=== PATIENT | female | born 1940 | race Caucasian/White ===

== ENCOUNTER 2016-07-12 16:33 | Inpatient (IN) | payer MEDICARE, OTHER ==
[~2016-07-12] VITALS: Ht 165.1 cm; Wt 73.9 kg
[~2016-07-12 16:33] MED LIST: ALLO100T PO; AMLO10TA2 PO; ASPI-110 PO; ATEN50TA PO; ISOS30TA15 PO; MULT1CHW33 PO; PLAV75TA29 PO; PRIN10TA PO
[2016-07-12 16:39] VITALS: BP 210/109; PULSE 90; RESP 20; TEMP 98.9; O2SAT 99
[2016-07-12] MEDS ORDERED: SODIUM CHLORIDE 0.9% FLUSH 5 ML FLUSH IVF PRN ×2 (16:45→18:45)
[2016-07-12] MEDS ORDERED: ONDANSETRON HCL 4 MG/2 ML VIAL IVP ONE (16:45)
[2016-07-12] MEDS ORDERED: MORPHINE SULFATE 4 MG/ML INJ IV PUSH ONE ×2 (16:45→18:00)
--- NOTE | 2016-07-12 17:08 | PD ---
HPI Chief Complaint: Fall Time Seen by Provider: 16:42 Travel History International Travel<30 days: No Contact w/Intl Traveler<30days: No Traveled to known affect area: No History of Present Illness HPI The patient is a 75-year-old female who presents to the emergency department via EMS for right hip pain. The patient states she fell out of bed, at home, landed on her right hip. Patient complains of pain located in the right hip that radiates down the right leg. The patient was unable to ambulate or bear weight on the affected leg after the fall. She denies any history of previous fracture or dislocation to the right hip. The patient's primary physician is Dr. Agee. The patient denies any head injury, neck pain, chest pain, shortness breath, nausea, vomiting, or abdominal pain. She denies any numbness or tingling of the right lower extremity. The patient's appointment clerk is Dr. Beckford. PFSH Past Medical History Hx Anticoagulant Therapy: Yes (plavix) Cardiovascular Problems: Yes (htn on meds, ME with stents) High Cholesterol: Yes COPD: Yes Cerebrovascular Accident: Yes (TIA) Coronary Artery Disease: Yes Diabetes: No Diminished Hearing: No Gout: Yes Hypertension: Yes Neurologic: Yes (Patient states ruptured aneurysm) Respiratory: Yes (copd) Triglycerides - High: Yes Menopausal: Yes Past Surgical History Abdominal Surgery: Yes Section: Yes Hysterectomy: Yes Pacemaker: No Other Surgery: Yes (Carotid endarterectomy ) Social History Alcohol Use: No Tobacco Use: Yes (1 PPD) Substance Use: No Allergies-Medications (Allergen,Severity, Reaction): Coded Allergies: Latex (Verified Allergy, Severe, Rash, 07/12/16) *MDRO Multi-Drug Resistant Organism (Verified Adverse Reaction, Unknown, ) 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) Reported Meds & Prescriptions Reported Meds & Active Scripts Active Reported Atorvastatin (Atorvastatin Calcium) 20 Mg Tab 20 Mg PO HS Garlic 1,000 Mg Cap 1,000 Mg PO DAILY Isosorbide Mononitrate ER (Isosorbide Mononitrate) 30 Mg Viviana 30 Mg PO DAILY Lisinopril 20 Mg Tab 20 Mg PO DAILY Allopurinol 100 Mg Tab 100 Mg PO BID Aspirin 81 (Aspirin) 81 Mg Tabdr 81 Mg PO DAILY Atenolol 50 Mg Tab 50 Mg PO BID Plavix (Clopidogrel Bisulfate) 75 Mg Tab 75 Mg PO DAILY Amlodipine (Amlodipine Besylate) 10 Mg Tab 10 Mg PO DAILY Review of Systems Except as stated in HPI: all other systems reviewed are Neg General / Constitutional: No: Fever HENT: No: Headaches, Neck Pain Cardiovascular: No: Chest Pain or Discomfort Respiratory: No: Shortness of Breath Gastrointestinal: No: Nausea, Vomiting, Abdominal Pain Musculoskeletal: Positive: Limited ROM, Pain Neurologic: No: Headache, Change in Mentation, Paresthesia, Sensory Disturbance Physical Exam Narrative GENERAL: Awake, alert, pleasant 75-year-old female who appears her stated age and is in no acute respiratory distress. SKIN: Warm and dry. HEAD: Atraumatic. Normocephalic. EYES: No injection or drainage. ENT: No nasal bleeding or discharge. Mucous membranes pink and moist. NECK: Trachea midline. No JVD. Nontender to palpation of the cervical vertebrae. CARDIOVASCULAR: Regular rate and rhythm. No murmur appreciated. RESPIRATORY: No accessory muscle use. Clear to auscultation. Breath sounds equal bilaterally. GASTROINTESTINAL: Abdomen soft, non-tender, nondistended. No rebound tenderness. MUSCULOSKELETAL: The right lower extremity is shortened and externally rotated. Positive dorsalis pedal pulse. The patient is able to move the toes of the right foot without difficulty. The patient is able flex the left hip and left knee, but is unable to flex the right hip or knee secondary to pain. NEUROLOGICAL: Awake and alert. No obvious cranial nerve deficits. Motor grossly within normal limits. Normal speech. PSYCHIATRIC: Appropriate mood and affect; insight and judgment normal. Data Data Last Documented VS Vital Signs Date Time Temp Pulse Resp B/P Pulse Ox O2 Delivery O2 Flow Rate FiO2 07/12/16 16:39 98.9 90 20 210/109 99 Orders Electrocardiogram (07/12/16 16:42) Complete Blood Count With Diff (07/12/16 16:42) Comprehensive Metabolic Panel (07/12/16 16:42) Prothrombin Time / Inr (Pt) (07/12/16 16:42) Type And Screen (07/12/16 16:42) Chest, Single Ap (07/12/16 16:42) Hip, Uni(Ap&Lat) W Ap Pelvis (07/12/16 16:42) Iv Access Insert/Monitor (07/12/16 16:42) Oximetry (07/12/16 16:42) Ice/Cold Pack (07/12/16 16:42) [employer] Request For Service (07/12/16 16:42) Ecg Monitoring (07/12/16 16:42) Morphine Inj (Morphine Inj) (07/12/16 16:45) Ondansetron Inj (Zofran Inj) (07/12/16 16:45) Sodium Chloride 0.9% Flush (Ns Flush) (07/12/16 16:45) Sling And Swathe (07/12/16 ) Consult Orthopedic (07/12/16 ) Admit Order (Ed Use Only) (07/12/16 17:48) Allopurinol (Zyloprim) (07/12/16 21:00) Amlodipine (Norvasc) (07/13/16 09:00) Atenolol (Tenormin) (07/12/16 21:00) Atorvastatin (Lipitor) (07/12/16 21:00) Isosorbide Mononitrate (Imdur) (07/13/16 09:00) Lisinopril (Prinivil) (07/13/16 09:00) (Nf) Garlic (07/13/16 09:00) Admit To Inpatient (07/12/16 ) Inpatient Certification (07/12/16 ) Labs Laboratory Tests Test 07/12/16 17:10 White Blood Count 6.4 TH/MM3 Red Blood Count 3.58 MIL/MM3 Hemoglobin 11.5 GM/DL Hematocrit 33.4 % Mean Corpuscular Volume 93.3 FL Mean Corpuscular Hemoglobin 32.0 PG Mean Corpuscular Hemoglobin 34.3 % Concent Red Cell Distribution Width 14.8 % Platelet Count 166 TH/MM3 Mean Platelet Volume 8.6 FL Neutrophils (%) (Auto) 61.8 % Lymphocytes (%) (Auto) 30.5 % Monocytes (%) (Auto) 6.0 % Eosinophils (%) (Auto) 1.2 % Basophils (%) (Auto) 0.5 % Neutrophils # (Auto) 4.0 TH/MM3 Lymphocytes # (Auto) 2.0 TH/MM3 Monocytes # (Auto) 0.4 TH/MM3 Eosinophils # (Auto) 0.1 TH/MM3 Basophils # (Auto) 0.0 TH/MM3 CBC Comment DIFF FINAL Differential Comment Prothrombin Time 10.2 SEC Prothromb Time International 0.9 RATIO Ratio Sodium Level 142 MEQ/L Potassium Level 4.0 MEQ/L Chloride Level 108 MEQ/L Carbon Dioxide Level 25.9 MEQ/L Anion Gap 8 MEQ/L Blood Urea Nitrogen 19 MG/DL Creatinine 0.94 MG/DL Estimat Glomerular Filtration 58 ML/MIN Rate Random Glucose 116 MG/DL Calcium Level 9.3 MG/DL Total Bilirubin 0.5 MG/DL Aspartate Amino Transf 15 U/L (AST/SGOT) Alanine Aminotransferase 16 U/L (ALT/SGPT) Alkaline Phosphatase 93 U/L Total Protein 7.4 GM/DL Albumin 3.6 GM/DL Blood Type O POSITIVE Antibody Screen NEGATIVE MDM Medical Decision Making Medical Screen Exam Complete: Yes Emergency Medical Condition: Yes Medical Record Reviewed: Yes Interpretation(s) Chest x-ray unremarkable Hip x-ray reveals right hip fracture Laboratory Tests Test 07/12/16 17:10 White Blood Count 6.4 TH/MM3 Red Blood Count 3.58 MIL/MM3 Hemoglobin 11.5 GM/DL Hematocrit 33.4 % Mean Corpuscular Volume 93.3 FL Mean Corpuscular Hemoglobin 32.0 PG Mean Corpuscular Hemoglobin 34.3 % Concent Red Cell Distribution Width 14.8 % Platelet Count 166 TH/MM3 Mean Platelet Volume 8.6 FL Neutrophils (%) (Auto) 61.8 % Lymphocytes (%) (Auto) 30.5 % Monocytes (%) (Auto) 6.0 % Eosinophils (%) (Auto) 1.2 % Basophils (%) (Auto) 0.5 % Neutrophils # (Auto) 4.0 TH/MM3 Lymphocytes # (Auto) 2.0 TH/MM3 Monocytes # (Auto) 0.4 TH/MM3 Eosinophils # (Auto) 0.1 TH/MM3 Basophils # (Auto) 0.0 TH/MM3 CBC Comment DIFF FINAL Differential Comment Prothrombin Time 10.2 SEC Prothromb Time International 0.9 RATIO Ratio Sodium Level 142 MEQ/L Potassium Level 4.0 MEQ/L Chloride Level 108 MEQ/L Carbon Dioxide Level 25.9 MEQ/L Anion Gap 8 MEQ/L Blood Urea Nitrogen 19 MG/DL Creatinine 0.94 MG/DL Estimat Glomerular Filtration 58 ML/MIN Rate Random Glucose 116 MG/DL Calcium Level 9.3 MG/DL Total Bilirubin 0.5 MG/DL Aspartate Amino Transf 15 U/L (AST/SGOT) Alanine Aminotransferase 16 U/L (ALT/SGPT) Alkaline Phosphatase 93 U/L Total Protein 7.4 GM/DL Albumin 3.6 GM/DL Blood Type O POSITIVE EKG reveals normal sinus rhythm with a rate 80. No ischemic changes or ectopy noted. Differential Diagnosis Differential diagnosis includes hip fracture, hip dislocation, hip contusion, pelvic rami fracture, pelvic fracture, mechanical fall. Narrative Course IV was established, labs are drawn and sent, and the patient was placed on cardiac telemetry monitoring and continuous pulse oximetry monitoring. EKG was ordered and interpreted. Chest x-ray, pelvis x-ray, and x-ray the right hip were obtained. The patient was administered morphine, Zofran, and IV fluids. X -ray reveals a right hip fracture. Laboratory evaluation is unremarkable. I had a discussion with the on-call orthopedist, Dr. Durán, who requests that the patient's Plavix be held, the patient can eat tonight. I had a discussion with the on-call medical team who agrees with admission. The patient was reevaluated, tolerated the morphine dose without any hallucinations this time, therefore, was redosed for pain control. The patient is comfortable with admission for further evaluation of right hip fracture and definitive management. Physician Communication Physician Communication I discussed the patient with Dr. Patel who agrees with admission. Diagnosis Primary Impression: Closed right hip fracture Qualified Code: S72.001A - Closed right hip fracture, initial encounter Admitting Information Admitting Physician Requests: Admit Condition: Stable Dwaine Sarabia MD Jul 12, 2016 17:08
[2016-07-12] MEDS ORDERED: ISOS30TA3 PO (17:22)
[2016-07-12] MEDS ORDERED: GARL1CAP PO (17:22)
[2016-07-12] MEDS ORDERED: ATOR20TA15 PO (17:22)
[2016-07-12] MEDS ORDERED: LISI-515 PO (17:22)
[2016-07-12 17:24] LABS: BASOPHIL % 0.5 % (0.0-2.0); EOSINOPHIL # 0.1 TH/MM3 (0-0.4); EOSINOPHIL % 1.2 % (0.0-4.0); HEMATOCRIT 33.4 % (35.0-46.0); HEMO FLAGS DIFF FINAL; LYMPH % 30.5 % (9.0-44.0); MEAN CELL VOLUME 93.3 FL (80.0-100.0); MEAN CORPUSCULAR HGB CONC 34.3 % (32.0-36.0); NEUT % 61.8 % (16.0-70.0); PLATELET COUNT 166 TH/MM3 (150-450); RED BLOOD COUNT 3.58 MIL/MM3 (4.00-5.30); RED CELL DISTRIBUTION WIDTH 14.8 % (11.6-17.2); WHITE BLOOD COUNT 6.4 TH/MM3 (4.0-11.0)
[2016-07-12 17:32] LABS: INTERNATIONAL NORMALIZED RATIO 0.9 RATIO; PROTHROMBIN TIME - PATIENT 10.2 SEC (9.8-11.6)
[2016-07-12 17:37] LABS: ALT (GPT) 16 U/L (10-53); ANION GAP 8 MEQ/L (5-15); AST (GOT) 15 U/L (15-37); BICARBONATE 25.9 MEQ/L (21.0-32.0); BLOOD UREA NITROGEN 19 MG/DL (7-18); CHLORIDE 108 MEQ/L (98-107); GLOMERULAR FILTRATION RATE 58 ML/MIN (>89); SODIUM (NA) 142 MEQ/L (136-145)
[2016-07-12 17:39] LABS: ALKALINE PHOSPHATASE 93 U/L (45-117); TOTAL BILIRUBIN ADULT 0.5 MG/DL (0.2-1.0)
[2016-07-12 18:03] VITALS: RESP 17; O2SAT 96
[2016-07-12] MEDS: SODIUM CHLOR 0.9% 1000 ML INJ 1,000 ML IV SCH (18:31)
[2016-07-12] MEDS ORDERED: ENALAPRILAT 1.25 MG/ML VIAL IV PRN (18:45)
[2016-07-12] MEDS ORDERED: diphenhydrAMINE HCL 50 MG/ML VIAL IV PRN (18:45)
[2016-07-12] MEDS ORDERED: ACETAMINOPHEN/HYDROcodone 325 MG/5 MG TAB PO PRN ×2 (18:45)
[2016-07-12] MEDS ORDERED: NALOXONE HCL 0.4 MG/ML AMP IV PRN (18:45)
[2016-07-12] MEDS ORDERED: ONDANSETRON HCL 4 MG/2 ML VIAL IVP PRN (18:45)
[2016-07-12] MEDS ORDERED: cloNIDine HCL 0.1 MG TAB PO PRN ×2 (18:45→21:15)
[2016-07-12] MEDS ORDERED: ACETAMINOPHEN 325 MG TAB PO PRN (18:45)
[2016-07-12] MEDS ORDERED: RESP: ALBUTEROL 2.5 MG/IPRATROPIUM 0.5 MG NEB (PRN) NEB (18:45)
[2016-07-12] MEDS ORDERED: diphenhydrAMINE HCL 25 MG CAP PO PRN (18:45)
--- NOTE | 2016-07-12 18:45 | HHI.HP ---
[facility] Mihai Agee MD Admission Diagnosis right hip fracture Diagnoses: Chief Complaint: Fall Travel History International Travel<30 Days: No Contact w/Intl Traveler <30 Da: No Traveled to Known Affected Are: No History of Present Illness 75-year-old female with a past medical history HTN, COPD, CAD, gout who presented with right hip pain after a fall. The patient states she was sitting on the edge the bed today, when her sat on the bed as well, which made her lose her balance and fall off the bed. She landed on her right hip and noticed immediate pain. She denies any other injury, head trauma, or loss of consciousness. She denies any numbness or tingling. She has pain located in her groin, that is exacerbated by movement. The pain is 0/10 severity as long as she lies still. She denies any chest pain, shortness breath, nausea, vomiting, headache, weakness, dysuria. Orthopedics was consulted from the ED, recommended holding Plavix. Review of Systems Except as stated in HPI: all other systems reviewed are Neg Past Family Social History Past Medical History Hypertension COPD Coronary artery disease History of carotid stenosis status post CEA Gout History of brain aneurysm, per patient, no intervention required at this aneurysm repaired itself Past Surgical History Hysterectomy with subsequent postoperative fistula repair Right carotid endarterectomy Ventral hernia repair 01/29 Cardiac catheterization with stent placement 01/29 Reported Medications Atorvastatin (Atorvastatin Calcium) 20 Mg Tab 20 Mg PO HS Garlic 1,000 Mg Cap 1,000 Mg PO DAILY Isosorbide Mononitrate ER (Isosorbide Mononitrate) 30 Mg Viviana 30 Mg PO DAILY Lisinopril 20 Mg Tab 20 Mg PO DAILY Allopurinol 100 Mg Tab 100 Mg PO BID Aspirin 81 (Aspirin) 81 Mg Tabdr 81 Mg PO DAILY Atenolol 50 Mg Tab 50 Mg PO BID Plavix (Clopidogrel Bisulfate) 75 Mg Tab 75 Mg PO DAILY Amlodipine (Amlodipine Besylate) 10 Mg Tab 10 Mg PO DAILY Allergies: Coded Allergies: Latex (Verified Allergy, Severe, Rash, 07/12/16) *MDRO Multi-Drug Resistant Organism (Verified Adverse Reaction, Unknown, ) 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) Active Ordered Medications Current Medications Medications (Trade) Dose Ordered Sig/Omid Route Start Time Stop Time Status Last Admin (NS Flush) 2 ml UNSCH PRN IVF 07/12/16 16:45 (Zyloprim) 100 mg BID PO 07/12/16 21:00 (Norvasc) 10 mg DAILY PO 07/13/16 09:00 (Tenormin) 50 mg BID PO 07/12/16 21:00 (Lipitor) 20 mg HS PO 07/12/16 21:00 (Imdur) 30 mg DAILY PO 07/13/16 09:00 (Prinivil) 20 mg DAILY PO 07/13/16 09:00 (NS Flush) 2 ml UNSCH PRN IVF 07/12/16 18:45 UNV (NS Flush) 2 ml BID IVF 07/12/16 21:00 UNV (Benadryl Inj) 25 mg Q4H PRN IV 07/12/16 18:45 UNV (Benadryl) 25 mg Q4H PRN PO 07/12/16 18:45 UNV (Narcan Inj) 0.4 mg UNSCH PRN IV 07/12/16 18:45 UNV Family History Patient didn't know her father States her mother at home, unknown causes Social History Continues to smoke, but is cutting back trying to quit Denies any alcohol or drug use Lives at home with her Physical Exam Vital Signs Vital Signs Date Time Temp Pulse Resp B/P Pulse Ox O2 Delivery O2 Flow Rate FiO2 07/12/16 18:03 80 17 95 Room Air 07/12/16 18:03 17 96 Room Air 07/12/16 16:39 98.9 90 20 210/109 99 Physical Exam GENERAL: Well-developed well-nourished. In no acute distress. SKIN: Warm and dry. No lesions noted. HEENT: Normocephalic. Pupils equal and round. Mucous membranes pink and moist. CARDIOVASCULAR: Regular rate and rhythm. No murmur appreciated. RESPIRATORY: No accessory muscle use. Clear to auscultation. Breath sounds equal bilaterally. GASTROINTESTINAL: Abdomen soft, non-tender, nondistended. Bowel sounds x4. MUSCULOSKELETAL: Right lower extremity shortened and externally rotated. No clubbing or cyanosis. Trace lower extremity edema. NEUROLOGICAL: Awake and alert. No focal neurological deficits. Moves upper and lower extremities spontaneously. Normal speech. Lower showing a sensation grossly intact. PSYCHIATRIC: Appropriate mood and affect; insight and judgment normal. Laboratory Laboratory Tests Test 07/12/16 17:10 White Blood Count 6.4 Red Blood Count 3.58 Hemoglobin 11.5 Hematocrit 33.4 Mean Corpuscular Volume 93.3 Mean Corpuscular Hemoglobin 32.0 Mean Corpuscular Hemoglobin 34.3 Concent Red Cell Distribution Width 14.8 Platelet Count 166 Mean Platelet Volume 8.6 Neutrophils (%) (Auto) 61.8 Lymphocytes (%) (Auto) 30.5 Monocytes (%) (Auto) 6.0 Eosinophils (%) (Auto) 1.2 Basophils (%) (Auto) 0.5 Neutrophils # (Auto) 4.0 Lymphocytes # (Auto) 2.0 Monocytes # (Auto) 0.4 Eosinophils # (Auto) 0.1 Basophils # (Auto) 0.0 CBC Comment DIFF FINAL Differential Comment Prothrombin Time 10.2 Prothromb Time International 0.9 Ratio Sodium Level 142 Potassium Level 4.0 Chloride Level 108 Carbon Dioxide Level 25.9 Anion Gap 8 Blood Urea Nitrogen 19 Creatinine 0.94 Estimat Glomerular Filtration 58 Rate Random Glucose 116 Calcium Level 9.3 Total Bilirubin 0.5 Aspartate Amino Transf 15 (AST/SGOT) Alanine Aminotransferase 16 (ALT/SGPT) Alkaline Phosphatase 93 Total Protein 7.4 Albumin 3.6 Blood Type O POSITIVE Antibody Screen NEGATIVE Result Diagram: 07/12/16 1710 07/12/16 1710 Assessment and Plan Assessment and Plan 75-year-old female with a past medical history HTN, COPD, CAD, gout who presented with right hip pain after a fall Right hip fracture Images personally reviewed: Hip x-ray shows femoral head fracture. -Orthopedics consulted, appreciate input into operative and perioperative care -Pain control as needed with oral and intravenous narcotics with a bowel regimen -For now keep patient nothing by mouth after midnight and place on IVF while nothing by mouth Coronary artery disease: Hold aspirin and Plavix for now pending orthopedic evaluation. Continue beta arthur, statin, Imdur. Hypertension: Was accelerated at admission secondary to pain. BP is currently improved, systolic 160s. Continue home amlodipine, atenolol, Imdur, lisinopril. Clonidine and Vasotec as needed. COPD: Chronic, stable. O2 and nebs as needed. DVT prophylaxis: Per orthopedic surgery. SCD. Discussed Condition With Patient, Dr. Patel Attending Statement 75 years old looks good for her age and very sharp S/P mechanical fall lungs clear regular rhythm abdomen soft, nontender walter in place right LE- shorter and externally rotated very good pulses right femoral neck fracture ortho ff. off Plavix now for surgery next few days Hypertension- some levated readings due to pain CAD The exam, history, and the medical decision-making described in the above note were completed with the assistance of the mid-level provider. I reviewed and agree with the findings presented. I attest that I had a [id number] encounter with the patient on the same day, and personally performed and documented my assessment and findings in the medical record. Isidro Jose Jul 12, 2016 18:45 Yanet Patel MD Jul 12, 2016 21:15
[2016-07-12 18:58] VITALS: BP 136/63; PULSE 84; RESP 18; O2SAT 96
[2016-07-12 20:25] VITALS: BP 191/79; PULSE 79; RESP 16; TEMP 96.8; O2SAT 93
[2016-07-12] MEDS: DOCUSATE SODIUM 100 MG CAP PO SCH (20:26)
[2016-07-12] MEDS: ATENOLOL 50 MG TAB PO SCH ×2 (20:27→20:32)
[2016-07-12] MEDS: ATORVASTATIN 20 MG TAB PO SCH (20:28)
[2016-07-12] MEDS: SODIUM CHLORIDE 0.9% FLUSH 5 ML FLUSH IVF SCH (20:28)
[2016-07-12] MEDS: ALLOPURINOL 100 MG TAB PO SCH (20:28)
[2016-07-12 23:00] VITALS: BP 183/79; PULSE 69; RESP 17; TEMP 97.1; O2SAT 95
[2016-07-12] MEDS: MORPHINE SULFATE 8 MG/ML INJ IV PUSH PRN (23:11)
[2016-07-12 23:54] VITALS: BP 154/62; PULSE 66
[2016-07-13] VITALS (7 sets, daily range): BP systolic 122–191; BP diastolic 53–83; PULSE 61–92; RESP 16–18; TEMP 96.8–98.5; O2SAT 92–97
--- NOTE | 2016-07-13 06:35 | PD.ORT.PN ---
Subjective Subjective Remarks Tripping fall while getting out of bed. Immediate pain to right hip and inability to stand. No other complaints Objective Vitals Vital Signs Date Time Temp Pulse Resp B/P Pulse Ox O2 Delivery O2 Flow Rate FiO2 07/13/16 04:00 98.2 92 16 150/74 97 07/12/16 23:54 66 154/62 07/12/16 23:00 97.1 69 17 183/79 95 07/12/16 20:25 96.8 79 16 191/79 93 07/12/16 18:58 84 18 136/63 96 Room Air 07/12/16 18:03 80 17 95 Room Air 07/12/16 18:03 17 96 Room Air 07/12/16 16:39 98.9 90 20 210/109 99 I/O 07/12/16 07/12/16 07/12/16 07/13/16 07/13/16 07/13/16 07:00 15:00 23:00 07:00 15:00 23:00 Intake Total 240 ml Output Total 250 ml Balance -10 ml Intake Oral 240 ml Output Urine Total 250 ml # Bowel Movements 0 Result Diagram: 07/12/16 1710 07/12/16 1710 Other Results Laboratory Tests Test 07/12/16 17:10 Prothrombin Time 10.2 SEC (9.8-11.6) Prothromb Time International 0.9 RATIO Ratio Objective Remarks Bilateral upper extremities: Full range of motion and neurovascularly intact Left lower extremity: Full range of motion and neurovascularly intact Right lower extremity: Pain to palpation of hip and movement. She has no pain with knee or ankle range of motion. Distally she is neurovascularly intact Assessment & Plan Assessment and Plan Right femoral neck fracture Nothing by mouth Due to femoral neck fracture surgical intervention is necessary for right hip hemiarthroplasty Sign consents We'll plan on surgery today. We are aware of Plavix LAMBERTO EDMONDS PA-C Jul 13, 2016 06:35
[2016-07-13 07:11] LABS: AUTOMATED NEUTROPHIL # 3.7 TH/MM3 (1.8-7.7); BASOPHIL % 0.5 % (0.0-2.0); EOSINOPHIL # 0.2 TH/MM3 (0-0.4); EOSINOPHIL % 2.5 % (0.0-4.0); HEMATOCRIT 32.6 % (35.0-46.0); HEMO FLAGS DIFF FINAL; LYMPHOCYTE # 1.8 TH/MM3 (1.0-4.8); MEAN CELL VOLUME 94.3 FL (80.0-100.0); MEAN CORPUSCULAR HEMOGLOBIN 31.4 PG (27.0-34.0); MEAN CORPUSCULAR HGB CONC 33.3 % (32.0-36.0); PLATELET COUNT 165 TH/MM3 (150-450); RED BLOOD COUNT 3.45 MIL/MM3 (4.00-5.30); RED CELL DISTRIBUTION WIDTH 14.8 % (11.6-17.2); WHITE BLOOD COUNT 6.1 TH/MM3 (4.0-11.0)
[2016-07-13 07:38] LABS: BICARBONATE 28.1 MEQ/L (21.0-32.0); POTASSIUM 4.2 MEQ/L (3.5-5.1)
[2016-07-13] MEDS: LISINOPRIL 20 MG TAB PO SCH (09:00)
[2016-07-13] MEDS ORDERED: GARLIC 1000 MG PO SCH (09:00)
[2016-07-13] MEDS: DOCUSATE SODIUM 100 MG CAP PO SCH ×2 (09:00→21:55)
[2016-07-13] MEDS: ISOSORBIDE MONONITRATE 30 MG TAB PO SCH (09:00)
[2016-07-13] MEDS: ALLOPURINOL 100 MG TAB PO SCH ×2 (09:00→21:55)
--- NOTE | 2016-07-13 09:01 | RADRPT ---
EXAM DATE/TIME: 07/12/2016 17:20 [facility] COMPARISON: CHEST SINGLE AP, January 27, 2016, 5:23. INDICATIONS: Trauma MEDICAL HISTORY: Hypertension. Chronic obstructive pulmonary disease. SURGICAL HISTORY: None. ENCOUNTER: Initial ACUITY: 1 day PAIN SCORE: 0/10 LOCATION: Bilateral chest FINDINGS: Single view of the chest demonstrates there is mild diffuse pulmonary interstitial prominence. Heart and mediastinum are unremarkable. There is arthritic change of the left humeral head, maybe even an old fracture. No acute infiltrate or mass identified. CONCLUSION: Mild interstitial prominence. No acute infiltrate or mass. Zenon Camacho MD on July 12, 2016 at 17:45 Board Certified Radiologist. This report was verified electronically.
--- NOTE | 2016-07-13 09:32 | RADRPT ---
EXAM DATE/TIME: 07/12/2016 17:15 [facility] COMPARISON: No previous studies available for comparison. INDICATIONS : Right hip pain, fell MEDICAL HISTORY: Hypertension. Chronic obstructive pulmonary disease. SURGICAL HISTORY: None. ENCOUNTER: Initial ACUITY: 1 day PAIN SCORE: 8/10 LOCATION: Right hip FINDINGS: Two view right hip demonstrates there is a impacted fracture of the right femoral neck. There is robby e foreshortening. I do not see an underlying lesion. Bony pelvis is unremarkable. Left hip is unre markable. CONCLUSION: Impacted fracture of the right femoral neck. Zenon Camacho MD on July 12, 2016 at 17:31 Board Certified Radiologist. This report was verified electronically.
[2016-07-13] MEDS: SODIUM CHLORIDE 0.9% FLUSH 5 ML FLUSH IVF SCH ×2 (09:34→21:55)
[2016-07-13] MEDS: SODIUM CHLOR 0.9% 1000 ML INJ 1,000 ML IV SCH ×2 (09:35→19:31)
[2016-07-13] MEDS: ATENOLOL 50 MG TAB PO SCH ×2 (09:35→21:55)
[2016-07-13] MEDS: MORPHINE SULFATE 8 MG/ML INJ IV PUSH PRN (09:37)
[2016-07-13] MEDS ORDERED: INSULIN HUMAN REGULAR 1,000 UNITS/10 ML VIAL SQ PRN (10:45)
[2016-07-13] MEDS: LACTATED RINGER'S 1000 ML IV SCH (10:45)
[2016-07-13] MEDS ORDERED: METOPROLOL TARTRATE 25 MG TAB PO PRN (10:45)
[2016-07-13] MEDS: SODIUM CHLORID 0.9% 500 ML IV SCH (10:45)
[2016-07-13] MEDS ORDERED: ePHEDrine/NS 25 MG/5 ML SYR IV ONE (12:00)
--- NOTE | 2016-07-13 12:13 | HHI.PR ---
Subjective Remarks pain- relieved with meds looking forward to surgery this 2 pm Objective Vitals Vital Signs Date Time Temp Pulse Resp B/P Pulse Ox O2 Delivery O2 Flow Rate FiO2 07/13/16 09:46 16 07/13/16 08:00 98.5 64 18 161/63 93 07/13/16 04:00 98.2 92 16 150/74 97 07/12/16 23:54 66 154/62 07/12/16 23:00 97.1 69 17 183/79 95 07/12/16 20:25 96.8 79 16 191/79 93 07/12/16 18:58 84 18 136/63 96 Room Air 07/12/16 18:03 80 17 95 Room Air 07/12/16 18:03 17 96 Room Air 07/12/16 16:39 98.9 90 20 210/109 99 I/O 07/12/16 07/12/16 07/12/16 07/13/16 07/13/16 07/13/16 07:00 15:00 23:00 07:00 15:00 23:00 Intake Total 240 ml 677 ml Output Total 250 ml 250 ml Balance -10 ml 427 ml Intake Oral 240 ml 0 ml IV Total 677 ml Output Urine Total 250 ml 250 ml # Bowel Movements 0 0 Result Diagram: 07/13/16 0607 07/13/16 0607 Imaging Last Impressions Hip and Pelvis X-Ray 07/12/161641 Signed Impressions: Service Date/Time: Tuesday, July 12, 2016 17:15 - CONCLUSION: Impacted fracture of the right femoral neck. Zenon Camacho MD Chest X-Ray 07/12/161641 Signed Impressions: Service Date/Time: Tuesday, July 12, 2016 17:20 - CONCLUSION: Mild interstitial prominence. No acute infiltrate or mass. Zenon Camacho MD Objective Remarks awake and alert, oriented x 2, NAD lungs clear regular rhtyhm abdomen soft, right LE- shorter- externally rotated, good pulses A/P Assessment and Plan 75 years old male S/P fall Right femoral neck fracture- going for surgery this pm. Hypertension, Hstory of CAD. continue meds Yanet Patel MD Jul 13, 2016 12:13
[2016-07-13] MEDS ORDERED: GENTAMICIN SULFATE 80 MG/2 ML VIAL ONE (12:21)
[2016-07-13] MEDS ORDERED: ceFAZolin INJ 1,000 MG VIAL ONE (12:21)
[2016-07-13] MEDS ORDERED: VANCOMYCIN HCL 1000 MG VIAL ONE ×2 (12:21→12:57)
[2016-07-13] MEDS ORDERED: SODIUM CHLOR 0.9% 250 ML INJ 250 ML ONE (12:24)
[2016-07-13] MEDS ORDERED: FAMOTIDINE 20 MG/2 ML VIAL ONE (12:46)
[2016-07-13] MEDS ORDERED: DEXAMETHASONE SOD PHOS 4 MG/ML VIAL ONE (12:46)
[2016-07-13] MEDS ORDERED: ACETAMINOPHEN 1000 MG/100 ML VIAL IV ONE (12:46)
[2016-07-13] MEDS: TRANEXAMIC ACID INJ 1,050 MG in SODIUM CHLORIDE 0.9% INJ 100 ML IV SCH ×2 (13:00→13:41)
[2016-07-13] MEDS ORDERED: PROPOFOL 200 MG/20 ML AMP IV ONE (14:09)
[2016-07-13] MEDS ORDERED: PHENYLEPH/NS 1000 MCG/10 ML SYR IV ONE (14:09)
[2016-07-13] MEDS ORDERED: ONDANSETRON HCL 4 MG/2 ML VIAL IV PUSH ONE (14:09)
[2016-07-13] MEDS ORDERED: NEOSTIGMINE 3 MG/3 ML SYR IV ONE (14:09)
[2016-07-13] MEDS ORDERED: LACTATED RINGER'S 1000 ML INJ 1,000 ML IV ONE (14:09)
[2016-07-13] MEDS ORDERED: Post-op Orders (for Pharmacy) MISC XX ONE (14:30)
[2016-07-13] MEDS ORDERED: SODIUM CHLORIDE 0.9% FLUSH 5 ML FLUSH IVF PRN (14:30)
[2016-07-13] MEDS ORDERED: MORPHINE SULFATE 4 MG/ML INJ IV PUSH PRN (14:30)
[2016-07-13] MEDS ORDERED: ACETAMINOPHEN/HYDROcodone 325 MG/7.5 MG TAB PO PRN (14:30)
--- NOTE | 2016-07-13 14:30 | PD.OP ---
cc: Allan Hernández MD Operative Report Date of Surgery: Jul 13, 2016 Preoperative Diagnosis: Displaced right femoral neck fracture Postoperative Diagnosis: Same Procedure: Right hip simon-arthroplasty Anesthesia: Gen. Surgeon: Allan Hernández Grain Operator(s): Jose Hunt PA-C The surgical procedure was assisted by my physician exceptional children teacher assistant. My P.A. presence was necessary throughout this case for the manipulation and positioning of the surgical extremity. My P.A. was assisting me throughout the duration of this procedure. The skill set of a physician exceptional children teacher assistant was medically necessary to complete this procedure. During the surgical case the electrical/instrument technician was working at the back table and the physician exceptional children teacher assistant was directly assisting me. Operation and Findings: PLAN OF ACTIVITY Weight bear as tolerated. IMPLANTS USED DePuy Corail size [10] stem with size [42] bipolar head and [was 5] neck. DRAIN: 7 mm Keagan-Moreno drain DETAILS OF PROCEDURE This patient was brought into the operating room and placed on the OR table. The patient was given anesthesia. The patient received IV antibiotics. The patient was then placed in lateral decubitus position. The hip and leg were prepped with alcohol, followed by Hibiclens and draped in a usual sterile fashion. Clean air was used for this procedure. Time out procedure was performed. The procedure began with a 5 inch incision over the posterolateral hip. The subcutaneous tissue was dissected with the Bovie. The iliotibial band were split in line with fibers. The Charnley retractor was placed. The piriformis and external rotators were released from the femur and tagged with a #1 Vicryl suture. The capsule is now incised and tagged with #1 Vicryl. The femoral neck fracture was now visualized. A corkscrew was now used to remove the femoral head. The femoral head was sized and measured. Soft tissue was now protected. The hip skid was placed underneath the femoral neck. An oscillating saw was used to make a femoral neck cut. At this point attention was turned to preparation of the proximal femur. A box osteotome was used to remove the lateral cortex of the femoral neck. The T- handle reamer was used to open the femoral canal. Next, the canal was broached. A lateralizing reamer was used to help lateralize the prosthesis. At this point a trial head and neck were placed. The hip was reduced. The patient was found to have excellent stability with good range of motion. Trial components were removed. Soft tissue and bone were thoroughly irrigated. A Corail stem was now opened. The stem was now impacted into the proximal femur. Care was taken to keep appropriate anteversion. The head and neck were now impacted onto the stem. The hip was again reduced. The hip was found to have good range of motion and good stability. Leg lengths were clinically equal. The wound was thoroughly irrigated. The capsule, piriformis and iliotibial band were closed with #1 Vicryl. Subcutaneous tissue was closed with 3-0 Vicryl. The skin was closed with tavon. A sterile dressing was applied with Primapore. The patient was placed into a knee immobilizer. The patient was awakened and transferred to the recovery room in stable condition. Needle and sponge counts were correct. Allan Hernández MD Jul 13, 2016 14:30
[2016-07-13] MEDS ORDERED: MIDAZOLAM HCL 2 MG/2 ML VIAL ONE (15:05)
[2016-07-13] MEDS ORDERED: *RESP: ALBUTEROL 2.5 MG/3 ML NEB (PRN) PERIprocedural Use ONLY NEB ONE (15:06)
[2016-07-13] MEDS ORDERED: fentaNYL CITRATE 250 MCG/5 ML AMP ONE (15:06)
[2016-07-13] MEDS ORDERED: ERGOCALCIFEROL (VIT D2) 50,000 UNIT CAP PO ONE (15:15)
[2016-07-13] MEDS ORDERED: *ENALAPRILAT 1.25 MG/ML VIAL PERIprocedural Use ONLY ONE (15:15)
[2016-07-13] MEDS ORDERED: *MEPERIDINE 25 MG INJ VIAL PERIprocedural Use ONLY ONE (15:19)
[2016-07-13] MEDS ORDERED: DO NOT ADM ANY ANTICOAGULANT DRUGS XX PRN (15:30)
[2016-07-13] MEDS ORDERED: *morphine SULFATE 8 MG/ML PERIprocedure ONLY ONE (16:01)
--- NOTE | 2016-07-13 16:16 | RADRPT ---
EXAM DATE/TIME: 07/13/2016 15:41 [facility] COMPARISON: CHEST SINGLE AP, July 12, 2016, 17:20. INDICATIONS : Post op right hip surgery. MEDICAL HISTORY : None. SURGICAL HISTORY : None. ENCOUNTER: Initial ACUITY: 1 day PAIN SCORE: 7/10 LOCATION: Right hip and pelvis FINDINGS: The patient is post right hip arthroplasty. Orthopedic hardware is in excellent position. The alignme nt is good. There are skin tavon in place. Note is made of degenerative changes within the left as well. CONCLUSION: 1. Good Alignment of the patient's right hip arthroplasty. Neeraj Barnett MD Board Certified Radiologist. This report was verified electronically.
[2016-07-13] MEDS: ceFAZolin 2 GM PREMIX 50 ML IV SCH (18:04)
--- NOTE | 2016-07-13 18:07 | MB ---
cc: ESTELA PATEL TODD DATE OF CONSULTATION: 07/13/2016 REASON FOR CONSULTATION: Right femoral neck fracture. CONSULTING PHYSICIAN Dr. Patel. HISTORY Jud is a 75 year-old female who has a history of hypertension, COPD, coronary artery disease, and gout. She had a fall. She was sitting on the edge of the bed when she fell. She landed on her right side. She had immediate right hip pain. She was unable to stand or ambulate. She presented to the emergency room where x-rays revealed a right hip femoral neck fracture. She is currently awake and alert on the orthopedic floor. Her only complaint is her right hip. Pain is worse with movement. She denies any dizziness, syncope, loss of consciousness. PAST MEDICAL HISTORY: Illnesses: 1. Hypertension. 2. COPD. 3. Coronary artery disease. 4. Carotid stenosis. 5. Gout. PAST SURGICAL HISTORY: 1. Hysterectomy. 2. Carotid endarterectomy. 3. Hernia repair. 4. Cardiac catheterization. MEDICATIONS 1. Atorvastatin. 2. Isosorbide mononitrate. 3. Lisinopril. 4. Allopurinol. 5. Aspirin. 6. Atenolol. 7. Plavix. 8. Amlodipine. ALLERGIES Latex SOCIAL HISTORY The patient does smoke. She denies alcohol or drug use. She lives with her . FAMILY HISTORY: Noncontributory. Mother of natural causes at old age. REVIEW OF SYSTEMS The patient denies headache, visual changes, neck pain, chest pain, shortness of breath, abdominal pain, nausea, vomiting, recent weight loss, numbness or tingling of the extremities. She complains of right hip pain. The pain is worse with movement. PHYSICAL EXAMINATION The patient is a well-developed, well-nourished 75-year-old female who is awake and alert. She is alert and oriented x3. Vital signs: Temperature 98.2, pulse 92, respirations 16, blood pressure 150/74, O2 sat 97% room air. Head: The patient is normocephalic. Pupils are equal. Neck: Soft, nontender. Trachea is midline. Abdomen: Soft, nontender, nondistended. Extremities: Examination of right and left upper extremities reveals no pain with shoulder, elbow or wrist motion. Radial pulses are palpable. Sensation is intact in both fingers. Machine Inker strength is +5 bilaterally. Examination of the left leg reveals no pain with hip, knee or ankle motion. Skin is intact. Dorsalis pedis pulses palpable. Sensation is intact. Examination of the right leg reveals pain with any hip motion. Her right leg is shortened. She has no tenderness over her knee, tibia or ankle. Skin is intact. Dorsalis pedis pulses are intact. Sensation is intact in the right foot. X-RAYS: X-rays of the right hip were reviewed. X-rays revealed a displaced right femoral neck fracture. IMPRESSION: Displaced right femoral neck fracture. PLAN: Treatment options were discussed with the patient. At this point I recommend right hip hemiarthroplasty. The risks of surgery include bleeding, infection, injury to arteries, nerves and blood vessels, hip dislocation, leg length discrepancy, femur fracture, as well as medical complications including blood clot, stroke, heart attack and . All questions were answered. I will plan on surgery today. A mid-level provider in my office (nurse practitioner or physician veterinary assistant) may see this patient on follow-up visits and continue to implement the objectives of this plan including: Starting or adjusting medications, injections , cast application, orthotics, brace application, physical therapy, radiological studies (including x-ray, MRI, CT, ultrasound, bone scan), vascular studies, neurologic studies, specialist consultation, and proceeding with surgical management, as appropriate. MD JOSE Cotto/FABY /5:35 PM /5:59 PM MARCUS
[2016-07-13] MEDS: ATORVASTATIN 20 MG TAB PO SCH (21:55)
[2016-07-14] VITALS (7 sets, daily range): BP systolic 120–168; BP diastolic 47–75; PULSE 63–104; RESP 16–20; TEMP 95.8–98.8; O2SAT 92–96
[2016-07-14] MEDS: ceFAZolin 2 GM PREMIX 50 ML IV SCH ×2 (00:28→06:00)
[2016-07-14] MEDS: SODIUM CHLORID 0.9% 500 ML IV SCH (03:25)
[2016-07-14 06:02] LABS: REVIEW FLAG FINAL
--- NOTE | 2016-07-14 06:41 | PD.ORT.PN ---
Subjective Subjective Remarks POD 1 s/p right hip bipolar hemiarthroplasty doing well. pain controlled. reports some pain but resting comfortably Objective Vitals Vital Signs Date Time Temp Pulse Resp B/P Pulse Ox O2 Delivery O2 Flow Rate FiO2 07/14/16 04:20 98.3 65 20 129/75 92 07/14/16 00:19 96.9 63 20 130/47 94 07/13/16 21:15 97.6 61 18 147/69 95 07/13/16 19:00 96.8 68 18 155/83 92 07/13/16 18:25 92 Nasal Cannula 2.00 07/13/16 17:00 97.6 63 18 122/53 92 07/13/16 16:00 66 13 140/70 94 Nasal Cannula 4 07/13/16 15:45 61 13 140/63 94 Nasal Cannula 4 07/13/16 15:30 62 12 146/60 100 Partial Non-Rebreather 50 07/13/16 15:15 73 16 185/64 96 Non-Rebreather 100 07/13/16 15:00 68 14 182/70 96 Non-Rebreather 100 07/13/16 14:54 97.4 76 12 187/53 92 Nasal Cannula 4 07/13/16 12:00 97.2 88 16 191/71 92 07/13/16 09:46 16 07/13/16 08:00 98.5 64 18 161/63 93 I/O 07/13/16 07/13/16 07/13/16 07/14/16 07/14/16 07/14/16 07:00 15:00 23:00 07:00 15:00 23:00 Intake Total 677 ml 1000 ml 480 ml Output Total 250 ml 500 ml 430 ml Balance 427 ml 500 ml 50 ml Intake Oral 0 ml 480 ml IV Total 677 ml Other 1000 ml Output Urine Total 250 ml 300 ml 400 ml Drainage Total 30 ml Other 200 ml # Bowel Movements 0 0 Result Diagram: 07/14/16 0506 07/13/16 0607 Imaging Last 24 hours Impressions Hip and Pelvis X-Ray 07/13/16 1427 Signed Impressions: Service Date/Time: Wednesday, July 13, 2016 15:41 - CONCLUSION: 1. Good Alignment of the patient's right hip arthroplasty. Neeraj Barnett MD Objective Remarks RLE: dressing clean and dry.intact. +drain. +CKS. NVI Assessment & Plan Assessment and Plan 1) Right femoral neck fracture s/p hemiarthroplasty - POD 1 -WBAT -posterior hip precautions -CKs while in bed -CM for rehab planning -DVT prophylaxis -f/u with [facility] or [facility] in 2 weeks Jose Hunt Jul 14, 2016 06:41
[2016-07-14] MEDS ORDERED: XARE10TA PO (06:43)
[2016-07-14] MEDS ORDERED: WALKER/ADULT/FO1 MIS (06:43)
[2016-07-14] MEDS ORDERED: ERGO1CAP30 PO (06:43)
[2016-07-14] MEDS ORDERED: VITA2000 PO (06:43)
[2016-07-14] MEDS ORDERED: HYDR-3288 PO (06:43)
[2016-07-14] MEDS ORDERED: CALCTAB19 PO (06:43)
--- NOTE | 2016-07-14 08:55 | HHI.PR ---
Subjective Remarks complains of pain post op site- feels brace too tight voiding spontaneously Objective Vitals Vital Signs Date Time Temp Pulse Resp B/P Pulse Ox O2 Delivery O2 Flow Rate FiO2 07/14/16 04:20 98.3 65 20 129/75 92 07/14/16 00:19 96.9 63 20 130/47 94 07/13/16 21:15 97.6 61 18 147/69 95 07/13/16 19:00 96.8 68 18 155/83 92 07/13/16 18:25 92 Nasal Cannula 2.00 07/13/16 17:00 97.6 63 18 122/53 92 07/13/16 16:00 66 13 140/70 94 Nasal Cannula 4 07/13/16 15:45 61 13 140/63 94 Nasal Cannula 4 07/13/16 15:30 62 12 146/60 100 Partial Non-Rebreather 50 07/13/16 15:15 73 16 185/64 96 Non-Rebreather 100 07/13/16 15:00 68 14 182/70 96 Non-Rebreather 100 07/13/16 14:54 97.4 76 12 187/53 92 Nasal Cannula 4 07/13/16 12:00 97.2 88 16 191/71 92 07/13/16 09:46 16 I/O 07/13/16 07/13/16 07/13/16 07/14/16 07/14/16 07/14/16 07:00 15:00 23:00 07:00 15:00 23:00 Intake Total 677 ml 1000 ml 480 ml 240 ml Output Total 250 ml 500 ml 430 ml 250 ml Balance 427 ml 500 ml 50 ml -10 ml Intake Oral 0 ml 480 ml 240 ml IV Total 677 ml Other 1000 ml Output Urine Total 250 ml 300 ml 400 ml 250 ml Drainage Total 30 ml Other 200 ml # Bowel Movements 0 0 0 Result Diagram: 07/14/16 0506 07/13/16 0607 Imaging Last Impressions Hip and Pelvis X-Ray 07/13/16 1427 Signed Impressions: Service Date/Time: Wednesday, July 13, 2016 15:41 - CONCLUSION: 1. Good Alignment of the patient's right hip arthroplasty. Neeraj Barnett MD Chest X-Ray 07/12/16 1642 Signed Impressions: Service Date/Time: Tuesday, July 12, 2016 17:20 - CONCLUSION: Mild interstitial prominence. No acute infiltrate or mass. Zenon Camacho MD Objective Remarks awake and alert, oriented x 2, NAD lungs clear regular rhythm abdomen soft, good bowel sounds RLE- CKS in place, moves toes, warm, good DP++ Procedures 07/13- right total hemiarthroplasty A/P Assessment and Plan 75 years old male S/P fall s/ right hemiarthroplasty 07/13 for Right femoral neck fracture- 07/13 orthopedics, PT ff prn pain meds Hypertension, History of CAD. continue meds- BB and CCB Lovenox for DVT prophylaxis CM=- DC planning - SNF Yanet Patel MD Jul 14, 2016 08:55
[2016-07-14] MEDS: ACETAMINOPHEN/HYDROcodone 325 MG/7.5 MG TAB PO PRN ×2 (09:11→15:40)
[2016-07-14] MEDS: ATENOLOL 50 MG TAB PO SCH ×2 (09:11→20:36)
[2016-07-14] MEDS: ALLOPURINOL 100 MG TAB PO SCH ×2 (09:11→20:36)
[2016-07-14] MEDS: CHOLECALCIFEROL (VIT D3) 5000 UNIT CAP PO SCH (09:11)
[2016-07-14] MEDS: LISINOPRIL 20 MG TAB PO SCH (09:11)
[2016-07-14] MEDS: ISOSORBIDE MONONITRATE 30 MG TAB PO SCH (09:11)
[2016-07-14] MEDS: DOCUSATE SODIUM 100 MG CAP PO SCH ×2 (09:12→20:35)
[2016-07-14] MEDS: SODIUM CHLORIDE 0.9% FLUSH 5 ML FLUSH IVF SCH ×2 (09:13→20:35)
[2016-07-14] MEDS: LACTATED RINGER'S 1000 ML IV SCH (09:13)
[2016-07-14] MEDS: SODIUM CHLOR 0.9% 1000 ML INJ 1,000 ML IV SCH ×2 (09:13→23:09)
--- NOTE | 2016-07-14 11:50 | EKG ---
Date Performed: 07/12/2016 Time Performed: 18:13:05 PTAGE: 75 years EKG: Sinus rhythm NORMAL ECG PREVIOUS TRACING : 07/12/2016 18.12 DOCTOR: Zenon Randall Interpretating Date/Time 07/20/2016 07:12:49
[2016-07-14] MEDS: MAGNESIUM HYDROXIDE SUSP 30 ML CUP PO PRN (13:27)
[2016-07-14] MEDS ORDERED: ENOXAPARIN SODIUM 30 MG/0.3 ML SYRINGE SQ SCH (14:00)
[2016-07-14] MEDS: ATORVASTATIN 20 MG TAB PO SCH (20:35)
[2016-07-15 00:18] VITALS: BP 146/62; PULSE 74; RESP 18; TEMP 98.1; O2SAT 95
[2016-07-15] MEDS: ACETAMINOPHEN/HYDROcodone 325 MG/7.5 MG TAB PO PRN (05:40)
[2016-07-15] MEDS: MAGNESIUM HYDROXIDE SUSP 30 ML CUP PO PRN (05:53)
--- NOTE | 2016-07-15 06:39 | PD.ORT.PN ---
Subjective Subjective Remarks POD 2 s/p right hip bipolar hemiarthroplasty doing well. pain controlled. reports some pain but resting comfortably Objective Vitals Vital Signs Date Time Temp Pulse Resp B/P Pulse Ox O2 Delivery O2 Flow Rate FiO2 07/15/16 00:18 98.1 74 18 146/62 95 07/14/16 19:00 97.0 71 18 140/58 95 07/14/16 16:40 16 07/14/16 15:20 95.8 68 18 149/70 92 07/14/16 12:32 96.8 66 16 120/49 92 07/14/16 11:21 95 Nasal Cannula 3.00 07/14/16 07:26 98.8 104 18 168/75 96 I/O 07/14/16 07/14/16 07/14/16 07/15/16 07/15/16 07/15/16 07:00 15:00 23:00 07:00 15:00 23:00 Intake Total 240 ml 600 ml 240 ml 360 ml Output Total 250 ml 125 ml 15 ml Balance -10 ml 475 ml 225 ml 360 ml Intake Oral 240 ml 600 ml 240 ml 360 ml Output Urine Total 250 ml 125 ml Drainage Total 15 ml # Voids 1 6 # Bowel Movements 0 0 0 Result Diagram: 07/14/16 0506 07/13/16 0607 Imaging Last 24 hours Impressions Hip and Pelvis X-Ray 07/13/16 1427 Signed Impressions: Service Date/Time: Wednesday, July 13, 2016 15:41 - CONCLUSION: 1. Good Alignment of the patient's right hip arthroplasty. Neeraj Barnett MD Objective Remarks RLE: dressing clean and dry.intact. +drain. +CKS. NVI Assessment & Plan Assessment and Plan 1) Right femoral neck fracture s/p hemiarthroplasty - POD 2 -WBAT -posterior hip precautions -CKs while in bed -CM for rehab planning -DVT prophylaxis -ortho cleared for DC to rehab -f/u with [facility] or [facility] in 2 weeks Jose Hunt Jul 15, 2016 06:39
--- NOTE | 2016-07-15 07:58 | HHI.PR ---
Subjective Remarks not much pain voiding well but had had no BM yet no nausea or vomiting Objective Vitals Vital Signs Date Time Temp Pulse Resp B/P Pulse Ox O2 Delivery O2 Flow Rate FiO2 07/15/16 00:18 98.1 74 18 146/62 95 07/14/16 19:00 97.0 71 18 140/58 95 07/14/16 16:40 16 07/14/16 15:20 95.8 68 18 149/70 92 07/14/16 12:32 96.8 66 16 120/49 92 07/14/16 11:21 95 Nasal Cannula 3.00 I/O 07/14/16 07/14/16 07/14/16 07/15/16 07/15/16 07/15/16 07:00 15:00 23:00 07:00 15:00 23:00 Intake Total 240 ml 600 ml 240 ml 360 ml Output Total 250 ml 125 ml 15 ml Balance -10 ml 475 ml 225 ml 360 ml Intake Oral 240 ml 600 ml 240 ml 360 ml Output Urine Total 250 ml 125 ml Drainage Total 15 ml # Voids 1 6 # Bowel Movements 0 0 0 Result Diagram: 07/14/16 0506 07/13/16 0607 Imaging Last Impressions Hip and Pelvis X-Ray 07/13/16 1427 Signed Impressions: Service Date/Time: Wednesday, July 13, 2016 15:41 - CONCLUSION: 1. Good Alignment of the patient's right hip arthroplasty. Neeraj Barnett MD Chest X-Ray 07/12/16 1642 Signed Impressions: Service Date/Time: Tuesday, July 12, 2016 17:20 - CONCLUSION: Mild interstitial prominence. No acute infiltrate or mass. Zenon Camacho MD Objective Remarks awake and alert, oriented x 2, NAD lungs clear regular rhythm abdomen soft, good bowel sounds, nontender RLE- CKS in place, moves toes, warm, good DP++ Procedures 07/13- right total hemiarthroplasty A/P Assessment and Plan 75 years old male S/P fall s/ right hemiarthroplasty 07/13 for Right femoral neck fracture- 07/13 orthopedics, PT ff. WBAT prn pain meds Hypertension, History of CAD.PCI/SHANNON 01/23/2016 continue meds- BB and CCB will d/w regarding Plavix- s/w Dr. Pandey- continue on Plavix for now - ideally 6 months at least. will monitor for bleeding. Lovenox for DVT prophylaxis- while here Xarelto as OP CM=- DC planning - SNF today if arranged- [facility] per CM if accepted- [facility]- we will continue to ff her there Yanet Patel MD Jul 15, 2016 07:58
[2016-07-15] MEDS ORDERED: DOCUSATE SODIUM 50 MG/SENNA 8.6 MG TAB PO ONE (08:00)
[2016-07-15] MEDS ORDERED: LACTULOSE SYRUP 20 GM/30 ML CUP PO ONE (08:00)
[2016-07-15] MEDS ORDERED: CHOL5000 PO (08:05)
[2016-07-15] MEDS ORDERED: DOCU1CAP39 PO (08:05)
[2016-07-15 08:16] VITALS: BP 160/74; PULSE 69; RESP 16; TEMP 97.8; O2SAT 93
[2016-07-15] MEDS: LISINOPRIL 20 MG TAB PO SCH (08:16)
[2016-07-15] MEDS: ATENOLOL 50 MG TAB PO SCH (08:16)
[2016-07-15] MEDS: CHOLECALCIFEROL (VIT D3) 5000 UNIT CAP PO SCH (08:16)
[2016-07-15] MEDS: ISOSORBIDE MONONITRATE 30 MG TAB PO SCH (08:16)
[2016-07-15] MEDS: DOCUSATE SODIUM 100 MG CAP PO SCH (08:16)
[2016-07-15] MEDS: ALLOPURINOL 100 MG TAB PO SCH (08:16)
[2016-07-15] MEDS: SODIUM CHLORIDE 0.9% FLUSH 5 ML FLUSH IVF SCH (08:17)
[2016-07-15] MEDS: SODIUM CHLOR 0.9% 1000 ML INJ 1,000 ML IV SCH (08:23)
[2016-07-15 09:02] VITALS: O2SAT 91
[2016-07-22] MEDS ORDERED: WHEEMIS3 (10:42)
[2016-07-26] MEDS ORDERED: CHOL5000 PO (12:11)
[2016-07-26] MEDS ORDERED: PLAV75TA29 PO (12:11)
[2016-07-26] MEDS ORDERED: ATEN50TA PO (12:11)
[2016-07-26] MEDS ORDERED: LISI-515 PO (12:11)
[2016-07-26] MEDS ORDERED: ALLO100T PO (12:11)
[2016-07-26] MEDS ORDERED: CALCTAB19 PO (12:11)
[2016-07-26] MEDS ORDERED: ASPI-110 PO (12:11)
[2016-07-26] MEDS ORDERED: AMLO10TA2 PO (12:11)
[2016-07-26] MEDS ORDERED: DOCU1CAP39 PO (12:11)
[2016-07-26] MEDS ORDERED: ISOS30TA3 PO (12:11)
[2016-07-26] MEDS ORDERED: SYMB80AE INH (12:11)
[2016-07-26] MEDS ORDERED: ATOR20TA15 PO (12:11)
[2016-07-26] MEDS ORDERED: XARE10TA PO (12:11)
--- NOTE | 2016-09-28 15:02 | HHI.DS ---
Discharge Summary Admission Date Jul 12, 2016 at 17:50 Discharge Date: Jul 15, 2016 Admitting Diagnosis right hip fracture (1) Closed right hip fracture ICD Code: S72.001A Procedures 07/13- right total hemiarthroplasty Brief History - From Admission 75-year-old female with a past medical history HTN, COPD, CAD, gout who presented with right hip pain after a fall. The patient states she was sitting on the edge the bed today, when her sat on the bed as well, which made her lose her balance and fall off the bed. She landed on her right hip and noticed immediate pain. She denies any other injury, head trauma, or loss of consciousness. She denies any numbness or tingling. She has pain located in her groin, that is exacerbated by movement. The pain is 0/10 severity as long as she lies still. She denies any chest pain, shortness breath, nausea, vomiting, headache, weakness, dysuria. Orthopedics was consulted from the ED, recommended holding Plavix. PE at Discharge awake and alert, oriented x 2, NAD lungs clear regular rhythm abdomen soft, good bowel sounds, nontender RLE- CKS in place, moves toes, warm, good DP++ Hospital Course 75 years old male S/P fall s/ right hemiarthroplasty 07/13 for Right femoral neck fracture- 07/13 orthopedics, PT ff. WBAT prn pain meds Hypertension, History of CAD.PCI/SHANNON 01/23/2016 continue meds- BB and CCB will d/w regarding Plavix- s/w Dr. Pandey- continue on Plavix for now - ideally 6 months at least. will monitor for bleeding. Lovenox for DVT prophylaxis- while here Xarelto as OP CM=- DC planning - SNF today if arranged- [facility] per CM if accepted- [facility]- we will continue to ff her there Pt Condition on Discharge: Stable Discharge Disposition: Rehab Inpatient Discharge Time: > 30 minutes Discharge Instructions DIET: Follow Instructions for: Heart Healthy Diet Speech Therapy-Diet Recommends: Regular Activities you can perform: Weight Bearing as Lenin Follow up Referrals: Orthopedics - 07/28/16 @ [facility] with Allan Parson MD New Medications: Ergocalciferol (Ergocalciferol) 50,000 Unit Cap 75898 UNITS PO Q7D Nutritional Supplement #56 CAP Walker/Adult/Folding (Walker/Adult/Folding) 1 Mis Mis 1 EA .ROUTE DIRECTED #1 Ref 0 EA Continued Medications: Garlic (Garlic) 1,000 Mg Cap 1000 MG PO DAILY Yanet Patel MD September 28, 2016 15:02
== END 2016-07-15 12:28 | DRG 470 ==
LOC: NEPE 16:33 → NEDA 17:50 → N06A 19:49
PROVIDERS: ADMIT Internal Medicine; ATTEND Internal Medicine
PROC: 0SRR0JA Replacement of Right Hip Joint, Femoral Surface with Synthetic Substitute, Uncemented, Open Approach (ICD-10-PCS; principal; 2016-07-13 13:09)
DX: S72.001A Fracture of unspecified part of neck of right femur, initial encounter for closed fracture (principal); J44.9 Chronic obstructive pulmonary disease, unspecified; I65.29 Occlusion and stenosis of unspecified carotid artery; I10 Essential (primary) hypertension; E78.00 Pure hypercholesterolemia, unspecified; I25.10 Atherosclerotic heart disease of native coronary artery without angina pectoris; M10.9 Gout, unspecified; W06.XXXA Fall from bed, initial encounter; Y92.003 Bedroom of unspecified non-institutional (private) residence as the place of occurrence of the external cause; F17.200 Nicotine dependence, unspecified, uncomplicated; Z79.02 Long term (current) use of antithrombotics/antiplatelets; Z86.73 Personal history of transient ischemic attack (TIA), and cerebral infarction without residual deficits
CPT/HCPCS: 71010; 73502; 80048; 80053; 82306; 85014; 85018; 85025; 85610; 86850; 86900; 86901; 87641; 93005; 94640; 94664; 96374; 96375; C1776; J0131; J0690; J1100; J1580; J1650; J2175; J2250; J2270; J2370; J2405; J2710; J3010; J3370; J7030; J7050; J7120; J7613; L1830

== ENCOUNTER 2017-02-06 22:16 | Emergency (ER) | payer MEDICARE ==
[~2017-02-06] VITALS: Ht 154.9 cm; Wt 64.8 kg
[~2017-02-06 22:16] MED LIST changes: +ATOR20TA15 PO; +CALCTAB19 PO; +CHOL5000 PO; +DOCU1CAP39 PO; +ERGO1CAP30 PO; +GARL1CAP PO; -ISOS30TA15 PO; +ISOS30TA3 PO; +LISI-515 PO; -MULT1CHW33 PO; -PRIN10TA PO; +SYMB80AE INH; +WALKER/ADULT/FO1 MIS; +WHEEMIS3; +XARE10TA PO
[2017-02-06 22:23] VITALS: BP 181/84; PULSE 82; RESP 20; TEMP 98.3; O2SAT 96
[2017-02-06 22:54] VITALS: BP 143/82; PULSE 73; RESP 16; O2SAT 98
--- NOTE | 2017-02-06 22:54 | PD ---
HPI Chief Complaint: Abdominal Pain Time Seen by Provider: 22:32 Travel History International Travel<30 days: No Contact w/Intl Traveler<30days: No Traveled to known affect area: No History of Present Illness HPI This is a 76-year-old female who presents to the emergency department with abdominal pain that started 4 hours ago right after she ate some cabbage, cauliflower and pork. Her pain has been persistent and just subsided here in the emergency department. She describes a burning in her upper abdomen, constant, moderate severity, with no associated nausea or vomiting. She does say she was sweaty during the pain. She denies any diarrhea or constipation. She has a history of a ventral hernia repair and a hysterectomy in the past. She says when she had her incarcerated ventral hernia it felt somewhat similar. PFSH Past Medical History Hx Anticoagulant Therapy: Yes (plavix) Arthritis: Yes Asthma: No Autoimmune Disease: No Anxiety: No Depression: No Heart Rhythm Problems: No Cancer: No Cardiovascular Problems: Yes (htn on meds, AL with stents) High Cholesterol: Yes Chemotherapy: No Chest Pain: Yes Congestive Heart Failure: No COPD: Yes Cerebrovascular Accident: Yes (TIA) Coronary Artery Disease: Yes Diabetes: No Diminished Hearing: No Endocrine: No GERD: No Gout: Yes Genitourinary: No Hiatal Hernia: No Hypertension: Yes Immune Disorder: No Kidney Stones: No Musculoskeletal: Yes (R knee replacement) Neurologic: Yes (Patient states ruptured aneurysm) Psychiatric: No Reproductive: No Respiratory: Yes (copd) Migraines: No Radiation Therapy: No Renal Failure: No Seizures: No Sickle Cell Disease: No Sleep Apnea: No Thyroid Disease: No Triglycerides - High: Yes Ulcer: No Menopausal: Yes Past Surgical History Abdominal Surgery: Yes (Hernia repair) AICD: No Arteriovenous Shunt: No Body Medical Devices: Stent Cardiac Surgery: Yes (Stent x1) Section: Yes Ear Surgery: No Endocrine Surgery: No Eye Surgery: Yes (Cataract removed) Genitourinary Surgery: No Gynecologic Surgery: Yes (Hysterectomy) Hysterectomy: Yes Insulin Pump: No Joint Replacement: Yes (R knee ) Oral Surgery: No Pacemaker: No Thoracic Surgery: No Other Surgery: Yes (Carotid endarterectomy ) Social History Alcohol Use: No Tobacco Use: Yes (1 PPD) Substance Use: No Allergies-Medications (Allergen,Severity, Reaction): Coded Allergies: latex (Verified Allergy, Severe, Rash, 02/06/17) *MDRO Multi-Drug Resistant Organism (Verified Adverse Reaction, Unknown, ) 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 Reported Meds & Prescriptions Reported Meds & Active Scripts Active Symbicort Inh (Budesonide/Formoterol Fumarate) 80-4.5 Mcg/Act Aero 2 Puff INH Q12HR 30 Days Dok (Docusate Sodium) 100 Mg Cap 100 Mg PO BID PRN Vitamin D3 (Cholecalciferol) 5,000 Unit Cap 5,000 Units PO DAILY Calcium 600+D 200 (Calcium Carbonate-Vitamin D) 600-200 Mg-Unit Tab 1 Tab PO BID Xarelto (Rivaroxaban) 10 Mg Tab 10 Mg PO DAILY Atorvastatin (Atorvastatin Calcium) 20 Mg Tab 20 Mg PO HS Isosorbide Mononitrate ER (Isosorbide Mononitrate) 30 Mg Viviana 30 Mg PO DAILY Lisinopril 20 Mg Tab 20 Mg PO DAILY Allopurinol 100 Mg Tab 100 Mg PO BID Aspirin 81 (Aspirin) 81 Mg Tabdr 81 Mg PO DAILY Atenolol 50 Mg Tab 50 Mg PO BID Plavix (Clopidogrel Bisulfate) 75 Mg Tab 75 Mg PO DAILY Amlodipine (Amlodipine Besylate) 10 Mg Tab 10 Mg PO DAILY Wheelchair (Device) 1 Mis Mis 1 Ea .ROUTE DIRECTED Ergocalciferol 50,000 Unit Cap 50,000 Units PO Q7D Walker/Adult/Folding (Device) 1 Mis Mis 1 Ea .ROUTE DIRECTED Review of Systems Except as stated in HPI: all other systems reviewed are Neg Physical Exam Narrative GENERAL:Well appearing, no acute distress SKIN: Focused skin assessment warm and dry. HEAD: Atraumatic. Normocephalic. EYES: Pupils equal and round. No injection or drainage. ENT: Moist mucous membranes NECK: Trachea midline. CARDIOVASCULAR: Regular rate and rhythm. No murmur appreciated. RESPIRATORY: Clear to auscultation. Breath sounds equal bilaterally. GASTROINTESTINAL: Abdomen soft,tender to palpation in the epigastrium with no rebound/guarding. multiple scars on the abdomen. MUSCULOSKELETAL: No obvious deformities. NEUROLOGICAL: Awake and alert. No obvious cranial nerve deficits. Moving all extremities. PSYCHIATRIC: Appropriate mood and affect; insight and judgment normal. Data Data Last Documented VS Vital Signs Date Time Temp Pulse Resp B/P (MAP) Pulse Ox O2 Delivery O2 Flow Rate FiO2 02/06/17 22:54 16 02/06/17 22:54 73 143/82 (102) 98 Room Air 02/06/17 22:23 98.3 Orders Orders Complete Blood Count With Diff (02/06/17 22:46) Comprehensive Metabolic Panel (02/06/17 22:46) Electrocardiogram (02/06/17 ) Troponin I (02/06/17 22:46) ^ Insert Iv (02/06/17 22:46) Ct Abd/Pel W Iv Contrast(Rout) (02/06/17 ) Lactic Acid (02/06/17 22:46) Urinalysis - C+S If Indicated (02/06/17 22:54) Urine Culture (02/06/17 23:00) Labs Laboratory Tests Test 02/06/17 23:00 02/06/17 23:10 Urine Color YELLOW Urine Turbidity MOD Urine pH 8.0 Urine Specific [place] 1.013 Urine Protein 30 mg/dL Urine Glucose (UA) NEG mg/dL Urine Ketones NEG mg/dL Urine Occult Blood TRACE Urine Nitrite NEG Urine Bilirubin NEG Urine Leukocyte Esterase TRACE Urine RBC 0-3 /hpf Urine WBC 6-8 /hpf Urine Squamous Epithelial Cells 0-5 /hpf Urine Amorphous Sediment LARGE Urine Bacteria MOD /hpf Urine Mucus FEW /lpf Microscopic Urinalysis Comment CULTURE INDICATED White Blood Count 9.5 TH/MM3 Red Blood Count 3.77 MIL/MM3 Hemoglobin 12.4 GM/DL Hematocrit 36.2 % Mean Corpuscular Volume 96.2 FL Mean Corpuscular Hemoglobin 32.8 PG Mean Corpuscular Hemoglobin Concent 34.1 % Red Cell Distribution Width 14.1 % Platelet Count 167 TH/MM3 Mean Platelet Volume 8.4 FL Neutrophils (%) (Auto) 82.6 % Lymphocytes (%) (Auto) 12.8 % Monocytes (%) (Auto) 3.7 % Eosinophils (%) (Auto) 0.6 % Basophils (%) (Auto) 0.3 % Neutrophils # (Auto) 7.8 TH/MM3 Lymphocytes # (Auto) 1.2 TH/MM3 Monocytes # (Auto) 0.4 TH/MM3 Eosinophils # (Auto) 0.1 TH/MM3 Basophils # (Auto) 0.0 TH/MM3 CBC Comment DIFF FINAL Differential Comment Blood Urea Nitrogen 21 MG/DL Creatinine 1.00 MG/DL Random Glucose 135 MG/DL Total Protein 7.6 GM/DL Albumin 3.7 GM/DL Calcium Level 9.6 MG/DL Alkaline Phosphatase 86 U/L Aspartate Amino Transf (AST/SGOT) 14 U/L Alanine Aminotransferase (ALT/SGPT) 18 U/L Total Bilirubin 0.8 MG/DL Sodium Level 140 MEQ/L Potassium Level 3.8 MEQ/L Chloride Level 107 MEQ/L Carbon Dioxide Level 26.4 MEQ/L Anion Gap 7 MEQ/L Estimat Glomerular Filtration Rate 54 ML/MIN Lactic Acid Level 0.9 mmol/L Troponin I LESS THAN 0.02 NG/ML MDM Medical Decision Making Medical Screen Exam Complete: Yes Emergency Medical Condition: Yes Interpretation(s) afebrile, no tachycardia, hypertensive no leukocytosis Electrolytes are reassuring Lactic acid is normal Troponin is normal Urinalysis demonstrates some moderate bacteria Differential Diagnosis Gastritis, pancreatitis, gastric outlet obstruction, cholelithiasis, cholecystitis Narrative Course This is a 76-year-old female who presents to the emergency department with epigastric abdominal pain. She has a history of a ventral hernia repair in the past and she says this feels similar to when she had a bowel obstruction in the past. Patient was placed in a monitor and an IV was established. Labs are obtained which were reassuring. She has some bacteria in her urine. CT is pending and will be followed up by Dr. Griffith. I think patient can be discharged home if her CT is reassuring. Lyly Saunders MD Feb 06, 2017 22:54
[2017-02-06 23:18] LABS: BLOOD, URINE TRACE (NEG); GLUCOSE,URINE NEG (NEG); KETONE, URINE NEG (NEG); NITRITE,URINE NEG (NEG)
[2017-02-06 23:27] LABS: CHLORIDE 107 MEQ/L (98-107); POTASSIUM 3.8 MEQ/L (3.5-5.1); SODIUM (NA) 140 MEQ/L (136-145)
[2017-02-06 23:28] LABS: AUTOMATED NEUTROPHIL # 7.8 TH/MM3 (1.8-7.7); BASOPHIL % 0.3 % (0.0-2.0); EOSINOPHIL # 0.1 TH/MM3 (0-0.4); EOSINOPHIL % 0.6 % (0.0-4.0); HEMATOCRIT 36.2 % (35.0-46.0); HEMO FLAGS DIFF FINAL; LYMPH % 12.8 % (9.0-44.0); LYMPHOCYTE # 1.2 TH/MM3 (1.0-4.8); MEAN CELL VOLUME 96.2 FL (80.0-100.0); MEAN CORPUSCULAR HEMOGLOBIN 32.8 PG (27.0-34.0); MEAN CORPUSCULAR HGB CONC 34.1 % (32.0-36.0); MONO % 3.7 % (0.0-8.0); NEUT % 82.6 % (16.0-70.0); PLATELET COUNT 167 TH/MM3 (150-450); RED BLOOD COUNT 3.77 MIL/MM3 (4.00-5.30); RED CELL DISTRIBUTION WIDTH 14.1 % (11.6-17.2); WHITE BLOOD COUNT 9.5 TH/MM3 (4.0-11.0)
[2017-02-06 23:31] LABS: ANION GAP 7 MEQ/L (5-15); BICARBONATE 26.4 MEQ/L (21.0-32.0); BLOOD UREA NITROGEN 21 MG/DL (7-18)
[2017-02-06 23:32] LABS: MUCUS URINE FEW /lpf (OCC); URINE COLOR YELLOW (YELLW/STRAW)
[2017-02-06 23:34] LABS: ALT (GPT) 18 U/L (10-53); AST (GOT) 14 U/L (15-37); GLOMERULAR FILTRATION RATE 54 ML/MIN (>89)
[2017-02-06 23:34] LABS: BACTERIA, URINE MOD /hpf; COMMENT (UR) CULTURE INDICATED; CULTURE IF INDICATED CULTURE INDICATED; RBC, URINE 0-3 /hpf (0-3); SQUAMOUS EPITHELIAL CELL URINE 0-5 /hpf (0-5)
[2017-02-06 23:36] LABS: TOTAL BILIRUBIN ADULT 0.8 MG/DL (0.2-1.0)
[2017-02-06 23:37] LABS: ALKALINE PHOSPHATASE 86 U/L (45-117)
[2017-02-06 23:40] VITALS: BP 123/64; PULSE 69; RESP 18; O2SAT 96
[2017-02-06] MEDS ORDERED: IOHEXOL 350 MG/ML 10 ML VIAL (for RAD DIAG) IVCONTRAST ONE (23:56)
--- NOTE | 2017-02-07 00:16 | RADRPT ---
EXAM DATE/TIME: 02/06/2017 23:43 [facility] COMPARISON: No previous studies available for comparison. INDICATIONS : Right upper quadrant pain. IV CONTRAST: 100 cc Omnipaque 350 (iohexol) IV ORAL CONTRAST: No oral contrast ingested. RADIATION DOSE: 11.69 CTDIvol (mGy) MEDICAL HISTORY : Chronic obstructive pulmonary disease. Hypertension. Hernia. SURGICAL HISTORY : section. Hysterectomy. ENCOUNTER: Initial ACUITY: 1 day PAIN SCALE: 4/10 LOCATION: Right upper quadrant TECHNIQUE: Volumetric scanning of the abdomen and pelvis was performed. Using automated exposure control and ad justment of the mA and/or kV according to patient size, radiation dose was kept as low as reasonably achievable to obtain optimal diagnostic quality images. DICOM format image data is available electro nically for review and comparison. FINDINGS: Lung bases are clear. Mild fatty liver. Spleen, left adrenal and pancreas demonstrate no acute findin gs. Stable small nodule right adrenal gland. Bilateral renal cysts similar to January 2016. Numerou s gallstones. Patient is status post ventral hernia repair with mesh. No recurrent herniation of bowel identified. There is some mild dilatation of small bowel in the proximal and mid small bowel with decompression d istally characteristic of an early or partial small bowel obstruction. No acute bony and modalities. Severe atherosclerosis with likely stenosis of the distal abdominal aorta. No aneurysm. CONCLUSION: 1. Mild gaseous distention of small bowel with air-fluid levels and distal decompression characterist ic of an early or mild/partial small bowel obstruction. No free fluid or free air. 2. Numerous gallstones without biliary ductal dilatation. 3. Previous right hip replacement. 4. Severe atherosclerosis with likely distal aortic stenosis. 5. Stable nodular enlargement right adrenal gland. Vasquez Leon MD on February 07, 2017 at 0:07 Board Certified Radiologist. This report was verified electronically.
[2017-02-07 00:37] VITALS: BP 133/80
--- NOTE | 2017-02-07 00:40 | PD ---
Physical Exam Time Seen by Provider: 00:[address] Saunders left this patient with me to check the results of the CT scan and make a disposition, likely discharge. Data Data Last Documented VS Vital Signs Date Time Temp Pulse Resp B/P (MAP) Pulse Ox O2 Delivery O2 Flow Rate FiO2 02/06/17 22:54 16 02/06/17 22:54 73 143/82 (102) 98 Room Air 02/06/17 22:23 98.3 Orders Orders Complete Blood Count With Diff (02/06/17 22:46) Comprehensive Metabolic Panel (02/06/17 22:46) Electrocardiogram (02/06/17 ) Troponin I (02/06/17 22:46) ^ Insert Iv (02/06/17 22:46) Ct Abd/Pel W Iv Contrast(Rout) (02/06/17 ) Lactic Acid (02/06/17 22:46) Urinalysis - C+S If Indicated (02/06/17 22:54) Urine Culture (02/06/17 23:00) Iohexol 350 Inj (Omnipaque 350 Inj) (02/06/17 23:56) Labs Laboratory Tests Test 02/06/17 23:00 02/06/17 23:10 Urine Color YELLOW Urine Turbidity MOD Urine pH 8.0 Urine Specific [place] 1.013 Urine Protein 30 mg/dL Urine Glucose (UA) NEG mg/dL Urine Ketones NEG mg/dL Urine Occult Blood TRACE Urine Nitrite NEG Urine Bilirubin NEG Urine Leukocyte Esterase TRACE Urine RBC 0-3 /hpf Urine WBC 6-8 /hpf Urine Squamous Epithelial Cells 0-5 /hpf Urine Amorphous Sediment LARGE Urine Bacteria MOD /hpf Urine Mucus FEW /lpf Microscopic Urinalysis Comment CULTURE INDICATED White Blood Count 9.5 TH/MM3 Red Blood Count 3.77 MIL/MM3 Hemoglobin 12.4 GM/DL Hematocrit 36.2 % Mean Corpuscular Volume 96.2 FL Mean Corpuscular Hemoglobin 32.8 PG Mean Corpuscular Hemoglobin Concent 34.1 % Red Cell Distribution Width 14.1 % Platelet Count 167 TH/MM3 Mean Platelet Volume 8.4 FL Neutrophils (%) (Auto) 82.6 % Lymphocytes (%) (Auto) 12.8 % Monocytes (%) (Auto) 3.7 % Eosinophils (%) (Auto) 0.6 % Basophils (%) (Auto) 0.3 % Neutrophils # (Auto) 7.8 TH/MM3 Lymphocytes # (Auto) 1.2 TH/MM3 Monocytes # (Auto) 0.4 TH/MM3 Eosinophils # (Auto) 0.1 TH/MM3 Basophils # (Auto) 0.0 TH/MM3 CBC Comment DIFF FINAL Differential Comment Blood Urea Nitrogen 21 MG/DL Creatinine 1.00 MG/DL Random Glucose 135 MG/DL Total Protein 7.6 GM/DL Albumin 3.7 GM/DL Calcium Level 9.6 MG/DL Alkaline Phosphatase 86 U/L Aspartate Amino Transf (AST/SGOT) 14 U/L Alanine Aminotransferase (ALT/SGPT) 18 U/L Total Bilirubin 0.8 MG/DL Sodium Level 140 MEQ/L Potassium Level 3.8 MEQ/L Chloride Level 107 MEQ/L Carbon Dioxide Level 26.4 MEQ/L Anion Gap 7 MEQ/L Estimat Glomerular Filtration Rate 54 ML/MIN Lactic Acid Level 0.9 mmol/L Troponin I LESS THAN 0.02 NG/ML MDM Medical Record Reviewed: Yes Supervised Visit with MAYA: Yes Interpretation(s) The CT abdomen pelvis with contrast shows mild gaseous distention of small bowel with air-fluid levels and distal decompression characteristic of an early or mild/partial small bowel obstruction. There is no free air or free fluid. Numerous gallstones are noted without biliary ductal dilatation. There is previous right hip replacement and severe arteriosclerosis with likely distal aortic stenosis. Also noted is stable nodular enlargement of the right adrenal gland. Differential Diagnosis Small bowel obstruction, intestinal colic, increased gas from gassy foods, electrolyte disorder, dehydration, Narrative Course Dr. Saunders said that the urine was positive but she wanted to wait for the culture because of patient had no urinary symptoms. Also, I offered the patient admission but she strongly opposed this and said she has no pain, no nausea and is passing gas. I told her that she could go home if she would come back if she got worse area and she promises she will. Diagnosis Primary Impression: Gaseous abdominal distention Additional Instruction: As we discussed, return immediately if you get worse. Follow-up later on today with your primary care physician. Drink plenty of liquids and to not eating more of the gas producing food-like cabbage. Med/Other Pt SpecificInfo: No Change to Meds Disposition: 01 DISCHARGE HOME Condition: Stable Filipe Griffith MD Feb 07, 2017 00:40
--- NOTE | 2017-02-07 14:01 | EKG ---
Date Performed: 02/06/2017 Time Performed: 22:56:01 PTAGE: 76 years EKG: Sinus rhythm INFERIOR MYOCARDIAL INFARCTION ABNORMAL ECG Compared to prior tracing no significant change PREVIOUS TRACING : 07/12/2016 18.13 DOCTOR: Jhonatan Pepper Interpretating Date/Time 02/07/2017 13:59:15
== END 2017-02-07 00:50 | disposition home or self-care (01) ==
LOC: PHED 22:16
DX: R14.0 Abdominal distension (gaseous) (principal); R94.31 Abnormal electrocardiogram [ECG] [EKG]; B96.20 Unspecified Escherichia coli [E. coli] as the cause of diseases classified elsewhere
CPT/HCPCS: 74177; 80053; 81001; 83605; 84484; 85025; 87077; 87086; 87186; 93005; 99285; Q9967

== ENCOUNTER 2017-04-01 01:53 | Emergency (ER) | payer MEDICARE ==
[~2017-04-01] VITALS: Ht 154.9 cm; Wt 61.5 kg
[~2017-04-01 01:53] MED LIST changes: -ASPI-110 PO; +ASPI1TAB57 PO; -ERGO1CAP30 PO; -GARL1CAP PO; +VITA500012 PO
[2017-04-01 01:55] VITALS: BP 195/66; PULSE 77; RESP 18; TEMP 98.1; O2SAT 97
[2017-04-01] MEDS ORDERED: RESP: ALBUTEROL 2.5 MG/IPRATROPIUM 0.5 MG NEB (SCH) NEB ONE (02:00)
[2017-04-01] MEDS ORDERED: SODIUM CHLORIDE 0.9% FLUSH 10 ML FLUSH IV FLUSH PRN (02:00)
[2017-04-01] MEDS ORDERED: ONDANSETRON HCL 4 MG/2 ML VIAL IV PUSH ONE (02:00)
--- NOTE | 2017-04-01 02:42 | RADRPT ---
EXAM DATE/TIME: 04/01/2017 02:14 [facility] COMPARISON: CHEST SINGLE AP, July 12, 2016, 17:20. INDICATIONS : Chest discomfort, abdominal pain for 3 hours MEDICAL HISTORY : Hypertension. Chronic obstructive pulmonary disease SURGICAL HISTORY : Stent placement ENCOUNTER: Initial ACUITY: 1 day PAIN SCORE: 0/10 LOCATION: Bilateral chest FINDINGS: A single view of the chest demonstrates the lungs to be symmetrically aerated without evidence of mas s, infiltrate or effusion. The cardiomediastinal contours are unremarkable. Osseous structures are osteopenic. Stable deformity of the proximal left humerus. CONCLUSION: The lungs are clear. Augustus Albarran MD on April 01, 2017 at 2:40 Board Certified Radiologist. This report was verified electronically.
[2017-04-01 03:12] LABS: AUTOMATED NEUTROPHIL # 9.2 TH/MM3 (1.8-7.7); BASOPHIL % 0.3 % (0.0-2.0); EOSINOPHIL % 0.2 % (0.0-4.0); HEMOGLOBIN 12.4 GM/DL (11.6-15.3); LYMPH % 8.6 % (9.0-44.0); LYMPHOCYTE # 0.9 TH/MM3 (1.0-4.8); MEAN CELL VOLUME 96.1 FL (80.0-100.0); MEAN CORPUSCULAR HEMOGLOBIN 32.2 PG (27.0-34.0); MEAN CORPUSCULAR HGB CONC 33.5 % (32.0-36.0); MEAN PLATELET VOLUME 8.3 FL (7.0-11.0); MONO % 2.2 % (0.0-8.0); MONOCYTE # 0.2 TH/MM3 (0-0.9); NEUT % 88.7 % (16.0-70.0); PLATELET COUNT 181 TH/MM3 (150-450); RED BLOOD COUNT 3.86 MIL/MM3 (4.00-5.30); RED CELL DISTRIBUTION WIDTH 13.5 % (11.6-17.2); WHITE BLOOD COUNT 10.3 TH/MM3 (4.0-11.0)
[2017-04-01 03:23] LABS: CHLORIDE 103 MEQ/L (98-107); SODIUM (NA) 139 MEQ/L (136-145)
[2017-04-01 03:27] LABS: ALBUMIN 3.7 GM/DL (3.4-5.0); BICARBONATE 27.4 MEQ/L (21.0-32.0); BLOOD UREA NITROGEN 26 MG/DL (7-18); CALCIUM 9.2 MG/DL (8.5-10.1); GLUCOSE,RANDOM 173 MG/DL (74-106); LIPASE 170 U/L (73-393); PROTHROMBIN TIME - PATIENT 10.5 SEC (9.8-11.6)
[2017-04-01 03:30] LABS: ALT (GPT) 18 U/L (10-53); AST (GOT) 13 U/L (15-37); GLOMERULAR FILTRATION RATE 40 ML/MIN (>89)
[2017-04-01] MEDS ORDERED: IOHEXOL 350 MG/ML 10 ML VIAL (for RAD DIAG) IVCONTRAST ONE (03:30)
[2017-04-01 03:32] LABS: TOTAL BILIRUBIN ADULT 0.8 MG/DL (0.2-1.0); TOTAL PROTEIN 7.7 GM/DL (6.4-8.2)
[2017-04-01 03:33] LABS: ALKALINE PHOSPHATASE 87 U/L (45-117)
[2017-04-01 03:35] LABS: TROPONIN I LESS THAN 0.02 NG/ML (0.02-0.05)
--- NOTE | 2017-04-01 04:35 | RADRPT ---
EXAM DATE/TIME: 04/01/2017 03:45 [facility] COMPARISON: CT ABDOMEN & PELVIS W CONTRAST, February 06, 2017, 23:43. INDICATIONS : Abdominal pain for 8 hours. IV CONTRAST: 83 cc Omnipaque 350 (iohexol) IV ORAL CONTRAST: No oral contrast ingested. RADIATION DOSE: 8.13 CTDIvol (mGy) MEDICAL HISTORY : Chronic obstructive pulmonary disease. Hypertension. SURGICAL HISTORY : CABG Hysterectomy.hernia repair, hip ENCOUNTER: Initial ACUITY: 1 day PAIN SCALE: 0/10 LOCATION: abdomen TECHNIQUE: Volumetric scanning of the abdomen and pelvis was performed. Using automated exposure control and ad justment of the mA and/or kV according to patient size, radiation dose was kept as low as reasonably achievable to obtain optimal diagnostic quality images. DICOM format image data is available electro nically for review and comparison. FINDINGS: LOWER LUNGS: The visualized lower lungs are clear. LIVER: Homogeneous density without lesion. There is no dilation of the biliary tree. Numerous small faintl y calcified gallstones, similar to prior. SPLEEN: Normal size without lesion. PANCREAS: Within normal limits. KIDNEYS: Normal in size and shape. There is no mass, stone or hydronephrosis a. Bilateral renal cysts, stabl e from prior.. ADRENAL GLANDS: 1.4 cm bilateral adrenal nodules, stable from prior. VASCULAR: There is no aortic aneurysm. Dense wall calcification in the aorta, stable. BOWEL/MESENTERY: Mild dilation of loops of small bowel left lower quadrant measuring up to 2.8 cm. There is induratio n of the mesentery in the right lateral mid abdomen and mild small bowel distention measuring up to 3 .5 cm, similar to prior CT 02/06/17. Localized small amount of fluid adjacent to to the herniorrhaphy mesh. ABDOMINAL WALL: Stable configuration to the herniorrhaphy mesh and anchor sutures. Small amount of fluid in the subc utaneous tissues of the right lower quadrant is unchanged from prior. No significant induration of t he subcutaneous fat. RETROPERITONEUM: There is no lymphadenopathy. BLADDER: No wall thickening or mass. REPRODUCTIVE: Within normal limits. INGUINAL: There is no lymphadenopathy or hernia. MUSCULOSKELETAL: Right total hip arthroplasty. Stable lipoma of the left groin abductor muscles. CONCLUSION: 1. Mild dilation of loops of small bowel throughout the abdomen measuring up to 3.5 cm and a small co llection of fluid anterior right mid abdomen adjacent to herniorrhaphy mesh. These findings are unch anged when compared to prior CT 02/06/17. 2. Other findings, including numerous small gallstones, bilateral renal cysts, bilateral adrenal nodu les and prominent calcification in the aorta, are also stable from prior CT. Augustus Albarran MD on April 01, 2017 at 4:25 Board Certified Radiologist. This report was verified electronically.
[2017-04-01 05:05] LABS: BILIRUBIN, URINE NEG (NEG); BLOOD, URINE TRACE (NEG); GLUCOSE,URINE NEG (NEG); KETONE, URINE NEG (NEG); NITRITE,URINE NEG (NEG); PH, URINE 6.5 (5.0-8.5); URINE LEUKOCYTE ESTERASE NEG (NEG)
--- NOTE | 2017-04-01 05:15 | PD ---
HPI Chief Complaint: GI Complaint Time Seen by Provider: 01:58 Travel History International Travel<30 days: No Contact w/Intl Traveler<30days: No Traveled to known affect area: No History of Present Illness HPI 76-year-old female presents to the emergency department by EMS transport from home for complaint of 8 hours of abdominal pain that has subsequently now resolved and is no longer having abdominal discomfort. Patient denies fever chills nausea vomiting chest pain sweats diarrhea black stools*his stools hematemesis coffee-ground emesis or urinary symptoms. Patient does complain of wheezing and shortness of breath which she states she has all the time due to diagnosis of COPD. Patient does smoke cigarettes. Patient states that this time she has some mild wheezing but has no pain. Patient did not receive any medications while being transported to the hospital. PFSH Past Medical History Narrative Medical [place] with dyslipidemia CAD COPD CVA TIA herniorrhaphy gouty arthritis hypertension and carotid endarterectomy; tobacco use nursing notes reviewed; Hx Anticoagulant Therapy: Yes Arthritis: Yes Asthma: No Autoimmune Disease: No Anxiety: No Depression: No Heart Rhythm Problems: No Cancer: No Cardiovascular Problems: Yes High Cholesterol: Yes Chemotherapy: No Chest Pain: Yes Congestive Heart Failure: No COPD: Yes Cerebrovascular Accident: Yes (TIA) Coronary Artery Disease: Yes Diabetes: No Diminished Hearing: No Endocrine: No Gastrointestinal Disorders: Yes (Hernia repair) GERD: No Gout: Yes Genitourinary: No Headaches: No Hiatal Hernia: No Heparin Induced Thrombocytopen: No Hypertension: Yes Immune Disorder: No Implanted Vascular Access Dvce: Yes Kidney Stones: No Musculoskeletal: Yes (R knee replacement) Neurologic: Yes (Patient states ruptured aneurysm) Psychiatric: No Reproductive: No Respiratory: Yes (copd) Migraines: No Radiation Therapy: No Renal Failure: No Seizures: No Sickle Cell Disease: No Sleep Apnea: No Thyroid Disease: No Triglycerides - High: Yes Ulcer: No Tetanus Vaccination: Unknown Influenza Vaccination: Yes ?: Not Menopausal: Yes Past Surgical History Abdominal Surgery: Yes (Hernia repair) AICD: No Arteriovenous Shunt: No Body Medical Devices: Stent Cardiac Surgery: Yes (Stent x1) Section: Yes Ear Surgery: No Endocrine Surgery: No Eye Surgery: Yes (Cataract removed) Genitourinary Surgery: No Gynecologic Surgery: Yes (Hysterectomy) Hysterectomy: Yes Insulin Pump: No Joint Replacement: Yes (R knee ) Oral Surgery: No Pacemaker: No Thoracic Surgery: No Other Surgery: Yes (Carotid endarterectomy ) Social History Alcohol Use: No Tobacco Use: Yes (1 PPD) Substance Use: No Allergies-Medications (Allergen,Severity, Reaction): Coded Allergies: latex (Verified Allergy, Severe, Rash, 04/01/17) *MDRO Multi-Drug Resistant Organism (Verified Adverse Reaction, Unknown, 04/01/17) 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 Reported Meds & Prescriptions Reported Meds & Active Scripts Active Symbicort Inh (Budesonide/Formoterol Fumarate) 80-4.5 Mcg/Act Aero 2 Puff INH Q12HR 30 Days Dok (Docusate Sodium) 100 Mg Cap 100 Mg PO BID PRN Vitamin D3 (Cholecalciferol) 5,000 Unit Cap 5,000 Units PO DAILY Calcium 600+D 200 (Calcium Carbonate-Vitamin D) 600-200 Mg-Unit Tab 1 Tab PO BID Xarelto (Rivaroxaban) 10 Mg Tab 10 Mg PO DAILY Atorvastatin (Atorvastatin Calcium) 20 Mg Tab 20 Mg PO HS Isosorbide Mononitrate ER (Isosorbide Mononitrate) 30 Mg Viviana 30 Mg PO DAILY Lisinopril 20 Mg Tab 20 Mg PO DAILY Allopurinol 100 Mg Tab 100 Mg PO BID Aspirin 81 (Aspirin) 81 Mg Tabdr 81 Mg PO DAILY Atenolol 50 Mg Tab 50 Mg PO BID Plavix (Clopidogrel Bisulfate) 75 Mg Tab 75 Mg PO DAILY Amlodipine (Amlodipine Besylate) 10 Mg Tab 10 Mg PO DAILY Wheelchair (Device) 1 Mis Mis 1 Ea .ROUTE DIRECTED Ergocalciferol 50,000 Unit Cap 50,000 Units PO Q7D Walker/Adult/Folding (Device) 1 Mis Mis 1 Ea .ROUTE DIRECTED Review of Systems Except as stated in HPI: all other systems reviewed are Neg General / Constitutional: No: Fever, Chills HENT: No: Congestion Cardiovascular: No: Chest Pain or Discomfort, Palpitations, Diaphoresis Respiratory: Positive: Shortness of Breath, Wheezing, No: Cough, Pleuritic Pain Gastrointestinal: Positive: Abdominal Pain (earlier none now), No: Nausea, Vomiting, Diarrhea Genitourinary: No: Flank Pain Musculoskeletal: No: Myalgias, Arthralgias Skin: No Rash Psychiatric: No: Anxiety Hematologic/Lymphatic: No: Lymph Node Enlargement Physical Exam Narrative GENERAL: Well-developed well-nourished female in no acute distress no respiratory distress SKIN: Warm and dry. HEAD: Normocephalic. EYES: No scleral icterus. No injection or drainage. NECK: Supple, trachea midline. No JVD or lymphadenopathy. CARDIOVASCULAR: Regular rate and rhythm without murmurs, gallops, or rubs. RESPIRATORY: Breath sounds equal bilaterally with wheezing bilaterally. No accessory muscle use. GASTROINTESTINAL: Abdomen soft, non-tender, no guarding or rebound, nondistended. MUSCULOSKELETAL: No cyanosis, or edema. BACK: Nontender without obvious deformity. No CVA tenderness. Data Data Last Documented VS Vital Signs Date Time Temp Pulse Resp B/P (MAP) Pulse Ox O2 Delivery O2 Flow Rate FiO2 04/01/17 01:55 97 04/01/17 01:55 18 04/01/17 01:55 98.1 77 195/66 (109) Orders Orders Complete Blood Count With Diff (04/01/17 01:58) Comprehensive Metabolic Panel (04/01/17 01:58) Lipase (04/01/17 01:58) Prothrombin Time / Inr (Pt) (04/01/17 01:58) Act Partial Throm Time (Ptt) (04/01/17 01:58) Urinalysis - C+S If Indicated (04/01/17 01:58) Ct Abd/Pel W Iv Contrast(Rout) (04/01/17 01:58) Iv Access Insert/Monitor (04/01/17 01:58) Ecg Monitoring (04/01/17 01:58) Oximetry (04/01/17 01:58) Sodium Chloride 0.9% Flush (Ns Flush) (04/01/17 02:00) Electrocardiogram (04/01/17 01:58) Chest, Single Ap (04/01/17 01:58) Troponin I (04/01/17 01:58) Ckmb (Isoenzyme) Profile (04/01/17 01:58) Albuterol-Ipratropium Neb (Duoneb Neb) (04/01/17 02:00) Ondansetron Inj (Zofran Inj) (04/01/17 02:00) Iohexol 350 Inj (Omnipaque 350 Inj) (04/01/17 03:30) Ed Discharge Order (04/01/17 05:50) Labs Laboratory Tests Test 04/01/17 03:00 04/01/17 04:50 White Blood Count 10.3 TH/MM3 Red Blood Count 3.86 MIL/MM3 Hemoglobin 12.4 GM/DL Hematocrit 37.0 % Mean Corpuscular Volume 96.1 FL Mean Corpuscular Hemoglobin 32.2 PG Mean Corpuscular Hemoglobin Concent 33.5 % Red Cell Distribution Width 13.5 % Platelet Count 181 TH/MM3 Mean Platelet Volume 8.3 FL Neutrophils (%) (Auto) 88.7 % Lymphocytes (%) (Auto) 8.6 % Monocytes (%) (Auto) 2.2 % Eosinophils (%) (Auto) 0.2 % Basophils (%) (Auto) 0.3 % Neutrophils # (Auto) 9.2 TH/MM3 Lymphocytes # (Auto) 0.9 TH/MM3 Monocytes # (Auto) 0.2 TH/MM3 Eosinophils # (Auto) 0.0 TH/MM3 Basophils # (Auto) 0.0 TH/MM3 CBC Comment DIFF FINAL Differential Comment Prothrombin Time 10.5 SEC Prothromb Time International Ratio 1.0 RATIO Activated Partial Thromboplast Time 23.1 SEC Blood Urea Nitrogen 26 MG/DL Creatinine 1.30 MG/DL Random Glucose 173 MG/DL Total Protein 7.7 GM/DL Albumin 3.7 GM/DL Calcium Level 9.2 MG/DL Alkaline Phosphatase 87 U/L Aspartate Amino Transf (AST/SGOT) 13 U/L Alanine Aminotransferase (ALT/SGPT) 18 U/L Total Bilirubin 0.8 MG/DL Sodium Level 139 MEQ/L Potassium Level 4.3 MEQ/L Chloride Level 103 MEQ/L Carbon Dioxide Level 27.4 MEQ/L Anion Gap 9 MEQ/L Estimat Glomerular Filtration Rate 40 ML/MIN Total Creatine Kinase 25 U/L Troponin I LESS THAN 0.02 NG/ML Lipase 170 U/L Urine Color YELLOW Urine Turbidity CLEAR Urine pH 6.5 Urine Specific [place] GREATER THAN 1.035 Urine Protein NEG mg/dL Urine Glucose (UA) NEG mg/dL Urine Ketones NEG mg/dL Urine Occult Blood TRACE Urine Nitrite NEG Urine Bilirubin NEG Urine Leukocyte Esterase NEG Urine RBC 3-5 /hpf Urine WBC 0-2 /hpf Urine Squamous Epithelial Cells 0-5 /hpf Urine Bacteria NONE /hpf Microscopic Urinalysis Comment CULT NOT INDICATED MDM Medical Decision Making Medical Screen Exam Complete: Yes Emergency Medical Condition: Yes Medical Record Reviewed: Yes Interpretation(s) EKG: Normal sinus rhythm rate [address] elevation or injury pattern change noted Last Impressions Chest X-Ray 04/01/17157 Signed Impressions: Service Date/Time: Saturday, April 01, 2017 02:14 - CONCLUSION: The lungs are clear. Augustus Albarran MD Abdomen/Pelvis CT 04/01/17157 Signed Impressions: Service Date/Time: Saturday, April 01, 2017 03:45 - CONCLUSION: 1. Mild dilation of loops of small bowel throughout the abdomen measuring up to 3.5 cm and a small collection of fluid anterior right mid abdomen adjacent to herniorrhaphy mesh. These findings are unchanged when compared to prior CT 02/06/17. 2. Other findings, including numerous small gallstones, bilateral renal cysts, bilateral adrenal nodules and prominent calcification in the aorta, are also stable from prior CT. Augustus Albarran MD CBC & BMP Diagram 04/01/17 03:00 Total Protein 7.7, Albumin 3.7, Calcium Level 9.2, Alkaline Phosphatase 87, Aspartate Amino Transf (AST/SGOT) 13 L, Alanine Aminotransferase (ALT/SGPT) 18, Total Bilirubin 0.8 Vital Signs Date Time Temp Pulse Resp B/P (MAP) Pulse Ox O2 Delivery O2 Flow Rate FiO2 04/01/17 01:55 97 04/01/17 01:55 18 04/01/17 01:55 98.1 77 18 195/66 (109) 97 Differential Diagnosis Abdominal pain, ileus, bowel obstruction, ischemic colitis, diverticulitis, UTI , renal colic, cholecystitis, choledocholithiasis, pancreatitis, ACS, abdominal aortic aneurysm, dissection Narrative Course Patient placed on monitor and storage bin tender IV access which is resulting; patient denies any discomfort or pain and exam is soft nontender abdomen Patient resting comfortably waiting on lab results and CT imaging CBC is automated differential total white cell count is within normal range chemistries remarkable for elevated BUN and creatinine Troponin I is less than 0.02 CK total is 25, not elevated. The abdomen and pelvis shows evidence of some mildly dilated small bowel and is reportedly essentially unchanged from CT performed 02/06/17 per reading radiologist Patient is informed of imaging results patient continues to deny any pain. Patient informed of urinalysis results with elevated specific gravity greater than 1.035; patient states that her primary care provider. She just saw yesterday told her that she needed to increase her fluid hydration so she's been taking ice coffee. Patient again states she has no abdominal pain and does not want to be admitted to the hospital this is been offered to her. Suspect patient may have had episode of biliary colic. Patient again is desirous of being discharged home at this time she has a completely nontender soft nondistended abdomen without guarding or rebound and positive active bowel sounds and is tolerating oral hydration without any difficulties therefore patient will be discharged to home with close follow-up with her primary care provider. Patient discharged home. Diagnosis Primary Impression: Abdominal pain Additional Impressions: Dehydration Cholelithiasis Referrals: Primary Care Physician 1 day Patient Instructions: General Instructions Additional Instructions: Follow clear liquid diet for next 12-24 hours advance diet as tolerated to bland /Edis diet avoiding any fried and fatty foods Follow-up with your primary care provider call office in a.m. Increase fluid hydration Continue chronic medications as chronically prescribed Return to the emergency department for any concerns or change in condition Take acetaminophen/Tylenol as needed for fever 100.4F or greater Med/Other Pt SpecificInfo: Prescription(s) given, No Change to Meds Scripts Ondansetron Odt (Zofran Odt) 4 Mg Tab 4 MG SL Q6HR Y for Nausea/Vomiting, #10 TAB 0 Refills Prov: Dilia Clemente MD 04/01/17 Dilia Clemente MD Apr 01, 2017 05:15
[2017-04-01 05:43] LABS: URINE COLOR YELLOW (YELLW/STRAW)
[2017-04-01 05:44] LABS: SQUAMOUS EPITHELIAL CELL URINE 0-5 /hpf (0-5); WBC, URINE 0-2 /hpf (0-5)
[2017-04-01] MEDS ORDERED: ZOFR4TAB3 SL (05:53)
[2017-04-01 05:54] VITALS: BP 180/74; PULSE 78; RESP 18; O2SAT 96
--- NOTE | 2017-04-01 16:19 | EKG ---
Date Performed: 04/01/2017 Time Performed: 02:11:46 PTAGE: 76 years EKG: Sinus rhythm POSSIBLE INFERIOR MYOCARDIAL INFARCTION BORDERLINE ECG Since PREVIOUS TRACING , no significant change noted PREVIOUS TRACIN02/06/2017 22.56 DOCTOR: Arnie Martínez Interpretating Date/Time 04/01/2017 16:18:54
== END 2017-04-01 06:03 | disposition home or self-care (01) ==
LOC: PHED 01:53
DX: R10.9 Unspecified abdominal pain (principal); E86.0 Dehydration; K80.20 Calculus of gallbladder without cholecystitis without obstruction; R94.31 Abnormal electrocardiogram [ECG] [EKG]; J44.9 Chronic obstructive pulmonary disease, unspecified; F17.210 Nicotine dependence, cigarettes, uncomplicated
CPT/HCPCS: 71010; 74177; 80053; 81001; 82550; 83690; 84484; 85025; 85610; 85730; 93005; 94664; 96374; J2405; Q9967

== ENCOUNTER 2018-05-09 01:41 | Inpatient (IN) ==
[2018-05-09] MEDS ORDERED: Morphine Sulfate Inj 2 MG/ML Vial IV.PUSH ONE (02:16)
[2018-05-09] MEDS ORDERED: Morphine Inj 4 MG/ML Vial IV.PUSH ONE ×2 (02:21→06:20)
[2018-05-09] MEDS ORDERED: Sod Chloride 0.9% Inj 1,000 ML IV.CONT SCH (02:30)
[2018-05-09 02:32] LABS: Baso # (Auto) 0.1 th/mm3 (0.0-0.2); Eos # (Auto) 0.1 th/mm3 (0.0-0.4); Eos % (Auto) 0.9 % (0.0-4.0); Hematocrit 37.5 % (35.0-46.0); Hemoglobin 12.7 gm/dL (11.6-15.3); Lymph # (Auto) 1.2 th/mm3 (1.0-4.8); Lymph % (Auto) 14.6 % (9.0-44.0); Mean Corpuscular HGB Conc 33.8 % (32.0-36.0); Mean Corpuscular Volume 97.5 fL (80.0-100.0); Mean Platelet Volume 8.4 fL (7.0-11.0); Mono # (Auto) 0.3 th/mm3 (0.0-0.9); Mono % (Auto) 3.6 % (0.0-8.0); Neut # (Auto) 6.2 th/mm3 (1.8-7.7); Neut % (Auto) 79.9 % (16.0-70.0); Platelet Count 201 th/mm3 (150-450); Red Blood Count 3.84 mil/mm3 (4.00-5.30); Red Cell Distribution Width 14.1 % (11.6-17.2); White Blood Count 7.9 th/mm3 (4.0-11.0)
[2018-05-09 02:39] LABS: Chloride 106 meq/L (98-107); Potassium 4.1 meq/L (3.5-5.1); Sodium 140 meq/L (136-145)
[2018-05-09 02:42] LABS: Calcium 9.2 mg/dL (8.5-10.1)
[2018-05-09 02:43] LABS: Activated Partial Thrombo Time 24.2 sec (23.4-31.7); Albumin 3.7 g/dL (3.4-5.0); Anion Gap 9 meq/L (5-15); Blood Urea Nitrogen 31 mg/dL (7-18); Carbon Dioxide 25.3 meq/L (21.0-32.0); Glucose,Random 158 mg/dL (74-106); Lipase 208 U/L (73-393); Magnesium 2.3 mg/dL (1.5-2.5); Prothrombin Time 9.7 sec (9.8-11.6)
--- NOTE | 2018-05-09 02:43 | ED ---
HPI General Chief Complaint: Abdominal Pain Stated Complaint: pain in stomach x 3 hours Time Seen by Provider: 05/09/18 02:14 Source: patient and family Mode of arrival: ambulatory Limitations: no limitations History of Present Illness MD complaint: Reports abdominal pain (x 3 hours) Onset (ago): hour(s) (3) Pain Consistency: constant Location: Reports periumbilical Severity: severe Severity scale (1-10): 8 Quality: Reports cramping, aching, fullness and dull Radiation: Reports none Migration to: Reports no migration Relieving factors: nothing Exacerbating factors: movement Context: Reports history of similar episodes (1 year ago); Denies foreign travel , possible food poisoning, sick contacts, recent antibiotic use, recent surgery/ procedure and recent injury Associated symptoms: Reports nausea and chills; Denies vomiting, diarrhea, fever , constipation, dysuria, hematemesis, hematochezia, melena, hematuria, anorexia and syncope Treatments prior to arrival: Denies NSAIDs, prescription analgesics and antacids Related Data Home Medications Medication Instructions Recorded Confirmed allopurinol 100 mg PO BID 05/09/18 05/09/18 amlodipine 10 mg PO DAILY 05/09/18 05/09/18 atenolol 50 mg PO DAILY 05/09/18 05/09/18 atorvastatin 20 mg PO DAILY 05/09/18 05/09/18 bupropion HCl 150 mg PO QAM 05/09/18 05/09/18 clopidogrel 75 mg PO DAILY 05/09/18 05/09/18 hydrochlorothiazide 25 mg PO DAILY 05/09/18 05/09/18 lisinopril 20 mg PO DAILY 05/09/18 05/09/18 Allergies Allergy/AdvReac Type Severity Reaction Status Date / Time latex Allergy Severe Rash Verified 04/01/17 02:01 *MDRO Multi-Drug Resistant AdvReac Unknown Uncoded 04/01/17 02:01 Organism Review of Systems ROS: all other systems reviewed are negative PMFSH History History Provided By: Patient and Medical Record Medical History Medical History Anxiety (Acute) Chest pain (Acute) HTN (hypertension) (Acute) High cholesterol (Acute) Surgical History Surgical History H/O hernia repair (Acute) Hx of cardiac cath (Acute) Social History Social History Substance History: No History of Abuse Second Hand Smoke Exposure: No Smoking Status: Current every day smoker Tobacco Type: Cigarettes How Often Do You Have a Drink Containing Alcohol: Never Recent Travel in [facility] within the Last 8 Weeks: No Recent Out of Country Travel within the Last 8 Weeks: No Exam Narrative Exam Narrative: GENERAL: Well-nourished, well-developed patient. Appears ill in no respiratory distress. SKIN: Focused skin assessment warm/mildly diaphoretic. HEAD: Normocephalic. EYES: No scleral icterus. No injection or drainage. NECK: Supple, trachea midline. No JVD or lymphadenopathy. CARDIOVASCULAR: Regular rate and rhythm without murmurs, gallops, or rubs. Bilateral radial pulses 2+ to palpation and to Doppler and bilateral dorsalis pedis pulses 2+ to palpation and to Doppler. RESPIRATORY: Breath sounds equal bilaterally. No accessory muscle use. GASTROINTESTINAL: Abdomen soft, periumbilical tenderness to palpation no palpable pulsatile mass, nondistended. Voluntary guarding no rebound. MUSCULOSKELETAL: No cyanosis, or edema. BACK: Nontender without obvious deformity. No CVA tenderness. Course Initial Documented Vital Signs Temperature 98.0 F 05/09/18 01:42 Pulse Rate 77 05/09/18 01:42 Blood Pressure 169/87 H 05/09/18 01:42 Pulse Oximetry 96 05/09/18 01:42 Last Documented Vital Signs Temperature 97.7 F 05/09/18 04:06 Pulse Rate 85 05/09/18 06:16 Respiratory Rate 18 05/09/18 06:16 Blood Pressure 129/77 05/09/18 06:16 Pulse Oximetry 98 05/09/18 05:10 Medical Decision Making [facility] Narrative Medical decision making narrative: 77-year-old female presents to the emergency department for severe periumbilical pain that is bandlike across the mid abdomen. Patient denies chest pain or shortness of breath. Patient denies any association with dietary intake. Denies any epigastric pain or right upper quadrant pain nausea without vomiting. Patient has history of CAD and hypertension with dyslipidemia. Patient denies diabetes. Patient states she is unsure if she is ever had imaging study to assess her aorta. CT abdomen pelvis performed March 2017 showed dense calcification of the abdominal aorta without evidence of aneurysm. At 2:40 AM pain somewhat improved after morphine sulfate 3 mg IV administered along with Zofran 4 mg IV. At 5 AM CTA thoracic and abdominal aorta has been evaluated by reading radiologist patient with severe extensive atherosclerotic disease throughout the arterial system with severe proximal (L) subclavian aa stenosis and extensive disease throughout the superior mesenteric artery with long segment of severe stenosis per reading radiologist as well as mild to moderate stenosis of the inferior mesenteric artery changes concerning for ischemia are a concern based on this imaging. However presently patient is asymptomatic abdomen is soft no longer is there any tenderness to direct palpation in the periumbilical and epigastric distribution patient remains asymptomatic with direct palpation to the right upper quadrant and no clinical Arndt sign. Rectal exam performed dark stool that is Hemoccult negative no gross blood and no mucoid stool. Patient also identified to have gallbladder with multiple stones for cholelithiasis no report of gallbladder wall thickening or pericholecystic fluid and no intra-or extrahepatic ductal dilatation. Patient's case discussed with vascular surgeon Dr. Modi who has had an opportunity to review the patient's imaging study and confirms that study is consistent with her having extensive chronic atherosclerotic disease with multiple areas of severe stenosis and that she will need to have SMA stenting but does not appear to need to do so emergently at this time if patient is asymptomatic and able to tolerate oral hydration well; per Dr Modi, he will be able to see her in his clinic tomorrow and arrange for procedural stenting intervention this week. 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 Patient requests attempt at trial of oral hydration to see if she can be discharged to home. Patient is aware of the seriousness of her condition and need for very close management and very close outpatient follow-up with vascular surgeon and should she tolerate oral hydration and oral intake therefore be allowed to be discharged home that she needs to return immediately to the hospital for any discomfort. Per Vascular suregon if unable to tolerate oral hydration will need medical admission to [facility] w/ vascular consult. At 610 patient reports complaint of recurrent umbilical pain after small amount of oral hydration with ice chips. Patient is agreeable to being admitted and having vascular surgery consult. Call placed to medicine service. Discussed with Dr Joiner and Dr Modi. Medical Screen Exam Complete: Yes Emergency Medical Condition: Yes Differential Diagnosis Differential Diagnosis: Abdominal pain, abdominal aortic aneurysm, dissection, mesenteric ischemia, acute cholecystitis, choledocholithiasis, pancreatitis, UTI , sepsis Medical Records Medical records reviewed: Yes I reviewed the patient's medical records. Lab Data Lab results reviewed: Yes I reviewed the patient's lab results. Result diagrams: 05/09/18 02:20 05/09/18 02:20 Lab Results 05/09/18 05/09/18 05/09/18 Range/Units 02:20 02:20 02:20 CBC w Diff Auto diff final WBC 7.9 (4.0-11.0) th/mm3 RBC 3.84 L (4.00-5.30) mil/mm3 Hgb 12.7 (11.6-15.3) gm/dL Hct 37.5 (35.0-46.0) % MCV 97.5 (80.0-100.0) fL MCH 33.0 (27.0-34.0) pg MCHC 33.8 (32.0-36.0) % RDW 14.1 (11.6-17.2) % Plt Count 201 (150-450) th/mm3 MPV 8.4 (7.0-11.0) fL Neut % (Auto) 79.9 H (16.0-70.0) % Lymph % (Auto) 14.6 (9.0-44.0) % Marshall % (Auto) 3.6 (0.0-8.0) % Eos % (Auto) 0.9 (0.0-4.0) % Baso % (Auto) 1.0 (0.0-2.0) % Neut # (Auto) 6.2 (1.8-7.7) th/mm3 Lymph # (Auto) 1.2 (1.0-4.8) th/mm3 Marshall # (Auto) 0.3 (0.0-0.9) th/mm3 Eos # (Auto) 0.1 (0.0-0.4) th/mm3 Baso # (Auto) 0.1 (0.0-0.2) th/mm3 WBC Differential . Differential Comment . PT 9.7 L (9.8-11.6) sec INR 1.0 Ratio APTT 24.2 (23.4-31.7) sec Sodium 140 (136-145) meq/L Potassium 4.1 (3.5-5.1) meq/L Chloride 106 (98-107) meq/L Carbon Dioxide 25.3 (21.0-32.0) meq/L Anion Gap 9 (5-15) meq/L BUN 31 H (7-18) mg/dL Creatinine 1.50 H (0.50-1.00) mg/dL Estimated GFR 33 L (>89) mL/min Random Glucose 158 H (74-106) mg/dL Lactic Acid (0.4-2.0) mmol/L Calcium 9.2 (8.5-10.1) mg/dL Magnesium 2.3 (1.5-2.5) mg/dL Total Bilirubin 0.6 (0.2-1.0) mg/dL AST 14 L (15-37) U/L ALT 17 (10-53) U/L Alkaline Phosphatase 91 (45-117) U/L Total Creatine Kinase 47 (26-192) U/L Troponin I Less than 0.02 L (0.02-0.05) ng/mL Total Protein 7.9 (6.4-8.2) g/dL Albumin 3.7 (3.4-5.0) g/dL Lipase 208 (73-393) U/L Urine Color (Yellw/Straw) Urine Clarity (Clear) Urine pH (5.0-8.5) Ur Specific [place] (1.002-1.035) Urine Protein (Neg-Trace) mg/dL Urine Glucose (UA) (Negative) mg/dL Urine Ketones (Negative) mg/dL Urine Occult Blood (Negative) Urine Nitrate (Negative) Urine Bilirubin (Negative) Urine Urobilinogen (Less than 2) mg/dL Ur Leukocyte Esterase (Negative) Urine RBC (0-3) /hpf Urine WBC (0-5) /hpf Ur Squamous Epith Cells (0-5) /hpf Micro UA Comment Ur Microscopic Review Urine Culture Comments Blood Type Blood Type Recheck Antibody Screen 05/09/18 05/09/18 05/09/18 Range/Units 02:20 02:20 02:50 CBC w Diff WBC (4.0-11.0) th/mm3 RBC (4.00-5.30) mil/mm3 Hgb (11.6-15.3) gm/dL Hct (35.0-46.0) % MCV (80.0-100.0) fL MCH (27.0-34.0) pg MCHC (32.0-36.0) % RDW (11.6-17.2) % Plt Count (150-450) th/mm3 MPV (7.0-11.0) fL Neut % (Auto) (16.0-70.0) % Lymph % (Auto) (9.0-44.0) % Marshall % (Auto) (0.0-8.0) % Eos % (Auto) (0.0-4.0) % Baso % (Auto) (0.0-2.0) % Neut # (Auto) (1.8-7.7) th/mm3 Lymph # (Auto) (1.0-4.8) th/mm3 Marshall # (Auto) (0.0-0.9) th/mm3 Eos # (Auto) (0.0-0.4) th/mm3 Baso # (Auto) (0.0-0.2) th/mm3 WBC Differential Differential Comment PT (9.8-11.6) sec INR Ratio APTT (23.4-31.7) sec Sodium (136-145) meq/L Potassium (3.5-5.1) meq/L Chloride (98-107) meq/L Carbon Dioxide (21.0-32.0) meq/L Anion Gap (5-15) meq/L BUN (7-18) mg/dL Creatinine (0.50-1.00) mg/dL Estimated GFR (>89) mL/min Random Glucose (74-106) mg/dL Lactic Acid 1.1 (0.4-2.0) mmol/L Calcium (8.5-10.1) mg/dL Magnesium (1.5-2.5) mg/dL Total Bilirubin (0.2-1.0) mg/dL AST (15-37) U/L ALT (10-53) U/L Alkaline Phosphatase (45-117) U/L Total Creatine Kinase (26-192) U/L Troponin I (0.02-0.05) ng/mL Total Protein (6.4-8.2) g/dL Albumin (3.4-5.0) g/dL Lipase (73-393) U/L Urine Color Yellow (Yellw/Straw) Urine Clarity Clear (Clear) Urine pH 7.0 (5.0-8.5) Ur Specific [place] 1.025 (1.002-1.035) Urine Protein 30 H (Neg-Trace) mg/dL Urine Glucose (UA) 100 H (Negative) mg/dL Urine Ketones Negative (Negative) mg/dL Urine Occult Blood Trace (Negative) Urine Nitrate Negative (Negative) Urine Bilirubin Negative (Negative) Urine Urobilinogen 0.2 (Less than 2) mg/dL Ur Leukocyte Esterase Negative (Negative) Urine RBC 4-15 H (0-3) /hpf Urine WBC 0-5 (0-5) /hpf Ur Squamous Epith Cells 0-5 (0-5) /hpf Micro UA Comment Cath-culture not ind Ur Microscopic Review Microscopic reviewed Urine Culture Comments Cath-cult not ind Blood Type O Positive Blood Type Recheck Not needed Antibody Screen Negative 05/09/18 Range/Units 05:40 CBC w Diff WBC (4.0-11.0) th/mm3 RBC (4.00-5.30) mil/mm3 Hgb (11.6-15.3) gm/dL Hct (35.0-46.0) % MCV (80.0-100.0) fL MCH (27.0-34.0) pg MCHC (32.0-36.0) % RDW (11.6-17.2) % Plt Count (150-450) th/mm3 MPV (7.0-11.0) fL Neut % (Auto) (16.0-70.0) % Lymph % (Auto) (9.0-44.0) % Marshall % (Auto) (0.0-8.0) % Eos % (Auto) (0.0-4.0) % Baso % (Auto) (0.0-2.0) % Neut # (Auto) (1.8-7.7) th/mm3 Lymph # (Auto) (1.0-4.8) th/mm3 Marshall # (Auto) (0.0-0.9) th/mm3 Eos # (Auto) (0.0-0.4) th/mm3 Baso # (Auto) (0.0-0.2) th/mm3 WBC Differential Differential Comment PT (9.8-11.6) sec INR Ratio APTT (23.4-31.7) sec Sodium (136-145) meq/L Potassium (3.5-5.1) meq/L Chloride (98-107) meq/L Carbon Dioxide (21.0-32.0) meq/L Anion Gap (5-15) meq/L BUN (7-18) mg/dL Creatinine (0.50-1.00) mg/dL Estimated GFR (>89) mL/min Random Glucose (74-106) mg/dL Lactic Acid (0.4-2.0) mmol/L Calcium (8.5-10.1) mg/dL Magnesium (1.5-2.5) mg/dL Total Bilirubin (0.2-1.0) mg/dL AST (15-37) U/L ALT (10-53) U/L Alkaline Phosphatase (45-117) U/L Total Creatine Kinase (26-192) U/L Troponin I Less than 0.02 L (0.02-0.05) ng/mL Total Protein (6.4-8.2) g/dL Albumin (3.4-5.0) g/dL Lipase (73-393) U/L Urine Color (Yellw/Straw) Urine Clarity (Clear) Urine pH (5.0-8.5) Ur Specific [place] (1.002-1.035) Urine Protein (Neg-Trace) mg/dL Urine Glucose (UA) (Negative) mg/dL Urine Ketones (Negative) mg/dL Urine Occult Blood (Negative) Urine Nitrate (Negative) Urine Bilirubin (Negative) Urine Urobilinogen (Less than 2) mg/dL Ur Leukocyte Esterase (Negative) Urine RBC (0-3) /hpf Urine WBC (0-5) /hpf Ur Squamous Epith Cells (0-5) /hpf Micro UA Comment Ur Microscopic Review Urine Culture Comments Blood Type Blood Type Recheck Antibody Screen Imaging Data Radiologist's impression: Chest X-Ray 05/09/18 02:16 CONCLUSION: 1. Subtle patchy airspace disease in the right lower lung zone which may reflect atelectasis. Cannot exclude aspiration or pneumonia in the appropriate clinical setting. Thoracic Aorta CT 05/09/18 02:54 CONCLUSION: 1. Redemonstration of extensive diffuse vascular disease. There is severe stenosis of the proximal left subclavian artery and severe distal aortic stenosis at the aortic bifurcation. Persistent severe stenosis of the left common iliac origin and moderate to severe stenosis of the right common iliac origin. 2. Stable appearance of mild to moderate celiac artery origin stenosis, long segment severe SMA stenosis and [id number] MECHE origin stenosis with prominent marginal artery. There is sufficient mesenteric artery involvement to implicate mesenteric ischemia in the appropriate clinical setting. 3. Focal loop of adherent small bowel in the anterior midabdomen with mild circumferential wall thickening and surrounding inflammatory change. There is relative prominence of more proximal small bowel loops although they do not appear definitively obstructed. Differential considerations include focal enteritis which may be related to adhesions or ischemic or infectious in etiology although somewhat chronic as findings were significantly less prominent but present on previous CT exam. Correlation with physical exam and patient's point of abdominal tenderness is recommended. 4. Additional ancillary findings, as above. Discharge Plan Discharge Disposition Patient Disposition: ED Admit(ED Internal Use Only) Discharge Condition Condition: Stable Discharge Order Discharge Orders: ED Use Only Admit Order (Routine); Ordered 05/09/18 Ordered By: Dilia Clemente Discharge Details Diagnosis: Abdominal aortic atherosclerosis, Cholelithiasis, Enteritis Physicians Team ED Provider: Dilia Clemente Primary Care Provider: Mihai Agee Rxs /Orders / Referrals /Forms Prescriptions: No Action atorvastatin 20 mg Tablet 20 mg PO DAILY RF: 0 lisinopril 20 mg Tablet 20 mg PO DAILY RF: 0 clopidogrel 75 mg Tablet 75 mg PO DAILY RF: 0 allopurinol 100 mg Tablet 100 mg PO BID RF: 0 amlodipine 10 mg Tablet 10 mg PO DAILY RF: 0 hydrochlorothiazide 25 mg Tablet 25 mg PO DAILY RF: 0 atenolol 50 mg Tablet 50 mg PO DAILY RF: 0 bupropion HCl 150 mg Tablet Extended Release 24 Hr 150 mg PO QAM RF: 0 Referrals: Mihai Agee MD [Primary Care Provider] - See Instructions Alexander Modi MD [Physician] - See Instructions (Clinic appointment TueMay 10 at 9:00a. Please call with any questions or concerns.) Status ED Status: With Doctor
[2018-05-09 02:46] LABS: Alanine Aminotransferase 17 U/L (10-53); Aspartate Aminotransferase 14 U/L (15-37); Glomerular Filtration Rate 33 mL/min (>89)
[2018-05-09 02:47] LABS: Total Protein 7.9 g/dL (6.4-8.2)
[2018-05-09 02:49] LABS: Alkaline Phosphatase 91 U/L (45-117)
[2018-05-09 02:52] LABS: Creatine Kinase 47 U/L (26-192)
[2018-05-09] MEDS ORDERED: Sodium Chlor 0.9% Inj 500 ML IV.SIG SCH (03:00)
--- NOTE | 2018-05-09 03:00 | XR ---
EXAM DATE: 05/09/2018 2:44 AM EST AGE/SEX: 77 years / Female INDICATIONS: Shortness of breath and abdomen pain since this afternoon. CLINICAL DATA: This is the patient's initial encounter. Patient reports that signs and symptoms have been present for 1 day and indicates a pain score of 5/10. MEDICAL/SURGICAL HISTORY: . Chronic obstructive pulmonary disease. Hypertension. . Hysterecto my. hernia repair COMPARISON: [facility] – [place], CHEST SINGLE AP, 07/12/2016. . FINDINGS: Subtle patchy airspace disease in the right lower lung zone. Persistent diffuse interstitial prominen ce. The cardiomediastinal contours are unremarkable. Osseous structures are stable. CONCLUSION: 1. Subtle patchy airspace disease in the right lower lung zone which may reflect atelectasis. Cannot exclude aspiration or pneumonia in the appropriate clinical setting. Electronically signed by: Ronnell Reed MD Board Certified Radiologist 05/09/2018 2:59 AM SHANTEL Sood
[2018-05-09 03:05] LABS: Bilirubin,Urine Negative (Negative); Clarity,Urine Clear (Clear); Color,Urine Yellow (Yellw/Straw); Glucose,Urine (UA) 100 mg/dL (Negative); Leukocyte Esterase,Urine Negative (Negative); Nitrite,Urine Negative (Negative); Specific Gravity,Urine 1.025 (1.002-1.035); Urobilinogen,Urine 0.2 mg/dL (Less than 2)
[2018-05-09 03:12] LABS: Squamous Epithelial Cell,Urine 0-5 /hpf (0-5); WBC,Urine 0-5 /hpf (0-5)
--- NOTE | 2018-05-09 04:36 | CT ---
EXAM DATE: 05/09/2018 4:00 AM EST AGE/SEX: 77 years / Female INDICATIONS: Abdominal pain CLINICAL DATA: This is the patient's initial encounter. Patient reports that signs and symptoms have been present for 1 day and indicates a pain score of 5/10. MEDICAL/SURGICAL HISTORY: None. section. RADIATION DOSE: 11.26 CTDI (mGy) COMPARISON: [facility], CTA AORTA W/ [place], 12/06/2016. . TECHNIQUE: Volumetric scanning was performed using a multi-row detector CT scanner during bolus infu xin of 100 ml Omnipaque 350 (iohexol) nonionic water-soluble contrast as a single exam dose. The d kierra was post processed with a variety of visualization algorithms including full volume maximum inten sity projection, multi-planar sliding thin slab reformation, curved planar reformation, and surface r endering techniques. Using automated exposure control and adjustment of the mA and/or kV according t o patient size, radiation dose was kept as low as reasonably achievable to obtain optimal diagnostic quality images. DICOM format image data is available electronically for review and comparison. FINDINGS: Angiographic Findings: Ascending: Normal in [place] without evidence for dissection. Arch: Prominent atherosclerotic calcifications. Standard 3 vessel arch anatomy. Heavily calcified and severely stenosed proximal left subclavian artery. Descending: Diffuse atherosclerotic calcifications without aneurysm or dissection. Abdominal Aorta: Bulky diffuse infrarenal atherosclerotic calcifications with severe distal aortic s tenosis at the bifurcation. Iliacs: There is severe stenosis of the left common iliac origin. Moderate to severe stenosis of the right common iliac artery origin. Remaining iliac arteries are heavily calcified but otherwise patent . Renal Arteries: Single renal arteries which appear heavily calcified at the origin. Resultant moderat e to severe stenosis bilaterally. Mesenteric Arteries: Mild to moderate stenosis of the celiac origin. Heavily calcified SMA with long segment severe stenosis. Mild to moderate stenosis of the MECHE origin. There is a prominent marginal artery. General Findings: LUNGS: Mild paraseptal emphysema with numerous bilateral parenchymal cysts. Mild bibasilar groundgla ss opacities. PLEURA: No effusion, significant pleural thickening or pneumothorax. MEDIASTINUM: Bilateral thyroid nodules measuring up to 10 mm on the left and 6 mm on the right. Moon nary artery calcifications. Heart is grossly unremarkable. No significant mediastinal adenopathy. LIVER: Mild diffusely decreased hepatic attenuation consistent with hepatic steatosis. No significan t intrahepatic ductal dilatation. Gallbladder is again noted to be filled with stones. SPLEEN: Homogeneous density without enlargement. PANCREAS: Unremarkable without mass or calcification. KIDNEYS: Redemonstration of multiple bilateral renal cysts similar to previous exam. 2 mm calculus i n the mid left kidney. Right kidney is small and atrophic in appearance. No hydronephrosis. ADRENAL GLANDS: Unremarkable. BOWEL/MESENTERY: Focal loop of small bowel which appears adherent to the anterior abdominal wall and demonstrates mild diffuse circumferential bowel wall thickening and surrounding mesenteric stranding /fluid. Nondistended fluid-filled loops of bowel proximally. More decompressed loops of small bowel d istally. Scattered colonic diverticulosis in the visualized portions of the colon. No pneumatosis or free air. ABDOMINAL WALL: Post surgical features of prior anterior abdominal wall mesh hernia repair. BONY STRUCTURES: Mild degenerative spondylosis of the lower lumbar spine. CONCLUSION: 1. Redemonstration of extensive diffuse vascular disease. There is severe stenosis of the proximal l eft subclavian artery and severe distal aortic stenosis at the aortic bifurcation. Persistent severe stenosis of the left common iliac origin and moderate to severe stenosis of the right common iliac or igin. 2. Stable appearance of mild to moderate celiac artery origin stenosis, long segment severe SMA sten osis and [id number] MECHE origin stenosis with prominent marginal artery. There is sufficient mes enteric artery involvement to implicate mesenteric ischemia in the appropriate clinical setting. 3. Focal loop of adherent small bowel in the anterior midabdomen with mild circumferential wall thic kening and surrounding inflammatory change. There is relative prominence of more proximal small bowel loops although they do not appear definitively obstructed. Differential considerations include focal enteritis which may be related to adhesions or ischemic or infectious in etiology although somewhat chronic as findings were significantly less prominent but present on previous CT exam. Correlation wi physical exam and patient's point of abdominal tenderness is recommended. 4. Additional ancillary findings, as above. Electronically signed by: Ronnell Reed MD Board Certified Radiologist 05/09/2018 4:35 AM SHANTEL Sood
[2018-05-09] MEDS ORDERED: Sod Chloride 0.9% Inj 1,000 ML IV.SIG SCH (05:30)
--- NOTE | 2018-05-09 09:08 | P.CONVS ---
History of Present Illness Service: vascular surgery Consult date: 05/09/18 Requesting Physician: Dilia Clemente Reason for Consult: abdominal pain Primary Care Provider: Mihai Agee MD Chief Complaint: abdominal pain History of Present Illness: 77 yo female with several hours of abdominal pain that was precipitated by food. Happened about a year ago but none since. No weight loss, no diarrhea. Pain has abated and then recurred with re-attempt at po challenge. Getting admitted to medical service. At the time of my eval in the [facility] ED, she was resting comfortably. Review of Systems Constitutional: Denies chills, Denies fever(s) Cardiovascular: Denies chest pain Gastrointestinal: Reports abdominal pain PMFSH - History History Provided By: Patient, Medical Record - Medical History Medical History: Medical History (Last Reviewed 05/09/18 @ 09:00 by Alexander Modi MD) Anxiety Chest pain HTN (hypertension) High cholesterol - Surgical History Surgical History: Surgical History (Last Reviewed 05/09/18 @ 09:00 by Alexander oMdi MD) H/O hernia repair Hx of cardiac cath - Tobacco History Second Hand Smoke Exposure: No Tobacco Use In Past 30 Days: No Smoking Status: Current every day smoker Tobacco Type: Cigarettes - Alcohol History How Often Do You Have a Drink Containing Alcohol: Never - Substance Use History Substance History: No History of Abuse - Travel History Recent Travel in the [place] Within the Last 8 Weeks: No Recent Travel Out of the Country Within the Last 8 Weeks: No - Immunization History Tetanus Immunization: Unsure Medications and Allergies Active Medications: Active Medications Sodium Chloride (Ns Inj) 1,000 mls @ 125 mls/hr IV.CONT .Q8H KEMAR Stop: 05/09/18 10:29 Last Admin: 05/09/18 02:37 Dose: 125 mls/hr Sodium Chloride (Ns Flush) 2 ml IV.FLUSH PRN PRN PRN Reason: FLUSH AFTER USING IV ACCESS Last Admin: 05/09/18 02:38 Dose: 2 ml Allergies Allergy/AdvReac Type Severity Reaction Status Date / Time latex Allergy Severe Rash Verified 04/01/17 02:01 *MDRO Multi-Drug Resistant AdvReac Unknown Uncoded 04/01/17 02:01 Organism Home Medications Medication Instructions Recorded Confirmed Type allopurinol 100 mg PO BID 05/09/18 05/09/18 History amlodipine 10 mg PO DAILY 05/09/18 05/09/18 History atenolol 50 mg PO DAILY 05/09/18 05/09/18 History atorvastatin 20 mg PO DAILY 05/09/18 05/09/18 History bupropion HCl 150 mg PO QAM 05/09/18 05/09/18 History clopidogrel 75 mg PO DAILY 05/09/18 05/09/18 History hydrochlorothiazide 25 mg PO DAILY 05/09/18 05/09/18 History lisinopril 20 mg PO DAILY 05/09/18 05/09/18 History Physical Exam Vital Signs / I&O: Vital Signs 05/09/18 01:42 05/09/18 04:06 05/09/18 04:30 Temperature 98.0 F 97.7 F Pulse Rate 77 77 75 Respiratory Rate 18 18 Blood Pressure 169/87 H 161/60 H 130/79 Pulse Oximetry 96 100 100 05/09/18 05:10 05/09/18 06:16 05/09/18 07:00 Temperature Pulse Rate 78 85 84 Respiratory Rate 18 18 18 Blood Pressure 111/72 129/77 98/55 L Pulse Oximetry 98 05/09/18 07:01 05/09/18 07:04 Temperature 98 F Pulse Rate 80 Respiratory Rate 18 Blood Pressure 101/65 Pulse Oximetry 10 L Intake & Output 05/08/18 05/09/18 05/09/18 18:59 06:59 18:59 Intake Total 1500 / 1500 Output Total 500 / 500 Balance 1000 / 1000 Weight 63.7 kg Intake: IV 1500 / 1500 NS Inj 1,000 ML @ 1000 mls/hr 1000 / 1000 IV.SIG BOLUS KEMAR Rx#:[id number] NS Inj 500 ML @ 1000 mls/hr IV. 500 / 500 SIG BOLUS KEMAR Rx#:[id number] Output: Urine Amount (Catheter) 500 / 500 Indwelling Urethral Catheter 500 / 500 Neuro: alert, no distress HEENT: NC/AT Neck: no JVD Heart: reg rate Lungs: clear B and nonlabored Abdomen: soft, NT healed infra-umbilical midline incision Vascular: palpable R UE pulses but no L Extremities: [place] without deficit Laboratory Results - last 24 hr 05/09/18 05/09/18 05/09/18 02:20 02:20 02:20 CBC w Diff Auto diff final WBC 7.9 RBC 3.84 L Hgb 12.7 Hct 37.5 MCV 97.5 MCH 33.0 MCHC 33.8 RDW 14.1 Plt Count 201 MPV 8.4 Neut % (Auto) 79.9 H Lymph % (Auto) 14.6 [place] % (Auto) 3.6 Eos % (Auto) 0.9 Baso % (Auto) 1.0 Neut # (Auto) 6.2 Lymph # (Auto) 1.2 [place] # (Auto) 0.3 Eos # (Auto) 0.1 Baso # (Auto) 0.1 WBC Differential . Differential Comment . PT 9.7 L INR 1.0 APTT 24.2 Sodium 140 Potassium 4.1 Chloride 106 Carbon Dioxide 25.3 Anion Gap 9 BUN 31 H Creatinine 1.50 H Estimated GFR 33 L Random Glucose 158 H Lactic Acid Calcium 9.2 Magnesium 2.3 Total Bilirubin 0.6 AST 14 L ALT 17 Alkaline Phosphatase 91 Total Creatine Kinase 47 Troponin I Less than 0.02 L Total Protein 7.9 Albumin 3.7 Lipase 208 Urine Color Urine Clarity Urine pH Ur Specific Butler Urine Protein Urine Glucose (UA) Urine Ketones Urine Occult Blood Urine Nitrate Urine Bilirubin Urine Urobilinogen Ur Leukocyte Esterase Urine RBC Urine WBC Ur Squamous Epith Cells Micro UA Comment Ur Microscopic Review Urine Culture Comments Blood Type Blood Type Recheck Antibody Screen 05/09/18 05/09/18 05/09/18 02:20 02:20 02:50 CBC w Diff WBC RBC Hgb Hct MCV MCH MCHC RDW Plt Count MPV Neut % (Auto) Lymph % (Auto) [place] % (Auto) Eos % (Auto) Baso % (Auto) Neut # (Auto) Lymph # (Auto) [place] # (Auto) Eos # (Auto) Baso # (Auto) WBC Differential Differential Comment PT INR APTT Sodium Potassium Chloride Carbon Dioxide Anion Gap BUN Creatinine Estimated GFR Random Glucose Lactic Acid 1.1 Calcium Magnesium Total Bilirubin AST ALT Alkaline Phosphatase Total Creatine Kinase Troponin I Total Protein Albumin Lipase Urine Color Yellow Urine Clarity Clear Urine pH 7.0 Ur Specific Butler 1.025 Urine Protein 30 H Urine Glucose (UA) 100 H Urine Ketones Negative Urine Occult Blood Trace Urine Nitrate Negative Urine Bilirubin Negative Urine Urobilinogen 0.2 Ur Leukocyte Esterase Negative Urine RBC 4-15 H Urine WBC 0-5 Ur Squamous Epith Cells 0-5 Micro UA Comment Cath-culture not ind Ur Microscopic Review Microscopic reviewed Urine Culture Comments Cath-cult not ind Blood Type O Positive Blood Type Recheck Not needed Antibody Screen Negative 05/09/18 05:40 CBC w Diff WBC RBC Hgb Hct MCV MCH MCHC RDW Plt Count MPV Neut % (Auto) Lymph % (Auto) [place] % (Auto) Eos % (Auto) Baso % (Auto) Neut # (Auto) Lymph # (Auto) [place] # (Auto) Eos # (Auto) Baso # (Auto) WBC Differential Differential Comment PT INR APTT Sodium Potassium Chloride Carbon Dioxide Anion Gap BUN Creatinine Estimated GFR Random Glucose Lactic Acid Calcium Magnesium Total Bilirubin AST ALT Alkaline Phosphatase Total Creatine Kinase Troponin I Less than 0.02 L Total Protein Albumin Lipase Urine Color Urine Clarity Urine pH Ur Specific Butler Urine Protein Urine Glucose (UA) Urine Ketones Urine Occult Blood Urine Nitrate Urine Bilirubin Urine Urobilinogen Ur Leukocyte Esterase Urine RBC Urine WBC Ur Squamous Epith Cells Micro UA Comment Ur Microscopic Review Urine Culture Comments Blood Type Blood Type Recheck Antibody Screen Impressions Chest X-Ray 05/09/18 02:16 CONCLUSION: 1. Subtle patchy airspace disease in the right lower lung zone which may reflect atelectasis. Cannot exclude aspiration or pneumonia in the appropriate clinical setting. Thoracic Aorta CT 05/09/18 02:54 CONCLUSION: 1. Redemonstration of extensive diffuse vascular disease. There is severe stenosis of the proximal left subclavian artery and severe distal aortic stenosis at the aortic bifurcation. Persistent severe stenosis of the left common iliac origin and moderate to severe stenosis of the right common iliac origin. 2. Stable appearance of mild to moderate celiac artery origin stenosis, long segment severe SMA stenosis and [id number] MECHE origin stenosis with prominent marginal artery. There is sufficient mesenteric artery involvement to implicate mesenteric ischemia in the appropriate clinical setting. 3. Focal loop of adherent small bowel in the anterior midabdomen with mild circumferential wall thickening and surrounding inflammatory change. There is relative prominence of more proximal small bowel loops although they do not appear definitively obstructed. Differential considerations include focal enteritis which may be related to adhesions or ischemic or infectious in etiology although somewhat chronic as findings were significantly less prominent but present on previous CT exam. Correlation with physical exam and patient's point of abdominal tenderness is recommended. 4. Additional ancillary findings, as above. 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 Plan mesenteric angiography and potential stenting 05/10. Keep NPO. 2. Continue reg meds - ASA and statin eusebio for CV risk factor 3. BP in RIGHT arm only (L SCA stenosis) Discussed with patient and her friend in ED this morning. Alexander Modi MD FACS FSVS RPVI meat cutter [facility] - Heart and Vascular Surgery at [facility] [phone]
[2018-05-09] MEDS ORDERED: Bisacodyl 10 MG Supp RECTAL PRN (09:29)
[2018-05-09] MEDS ORDERED: Acetaminophen 325 MG Tablet PO PRN (09:29)
[2018-05-09] MEDS ORDERED: Lisinopril 20 MG Tablet PO SCH (09:30)
[2018-05-09] MEDS ORDERED: Naloxone Inj 0.4 MG/ML Vial IV.PUSH PRN (09:32)
[2018-05-09] MEDS ORDERED: Morphine Inj 4 MG/ML Vial IV.PUSH PRN (09:32)
[2018-05-09] MEDS: Atenolol 50 MG Tablet PO SCH (12:54)
[2018-05-09] MEDS: amLODIPine 10 MG Tablet PO SCH (12:54)
[2018-05-09] MEDS: Allopurinol 100 MG Tablet PO SCH ×2 (12:54→21:17)
[2018-05-09] MEDS: hydroCHLOROthiazide 25 MG Tablet PO SCH (12:54)
[2018-05-09] MEDS: buPROPion 150 MG 12 HR Tablet PO SCH (12:54)
--- NOTE | 2018-05-09 13:55 | ECG ---
Date Performed: 05/09/2018 Time Performed: 02:24:00 PTAGE: 77 years EKG: Sinus rhythm POSSIBLE INFERIOR MYOCARDIAL INFARCTION ABNORMAL ECG Since PREVIOUS TRACING , no significant change noted PREVIOUS TRACIN04/01/2017 02.11 DOCTOR: Todd Pandey Interpretating Date/Time 05/09/2018 13:53:39
--- NOTE | 2018-05-09 15:40 | P.HPIM ---
History of Present Illness Service: Hospitalist Primary Care Physician: Mihai Agee MD Chief Complaint: Abdominal pain History of Present Illness: Patient is a 77-year-old female with a past medical history of CAD, hypertension, hyperlipidemia, anxiety and gout who presents to the emergency room in [place] with a complaint of abdominal pain. She was evaluated by vascular surgery who found mesenteric ischemia and transferred to [facility] for treatment. Patient is seen lying in bed after transfer. She reports that abdominal pain has improved but still has some generalized periumbilical discomfort. She is unable to give me much history and is somewhat drowsy. No family at bedside. Patient denies any chest pain or shortness of breath. Has not had any nausea vomiting or diarrhea. Diagnosis (1) Mesenteric artery insufficiency: (2) DARCIE (acute kidney injury): (3) Hematuria: (4) Glycosuria: Review of Systems Review of Systems: all other systems reviewed are negative [facility] Medical History Medical History Anxiety (Acute) Chest pain (Acute) HTN (hypertension) (Acute) High cholesterol (Acute) Surgical History Surgical History H/O hernia repair (Acute) Hx of cardiac cath (Acute) Social History Social History Substance History: No History of Abuse Second Hand Smoke Exposure: Yes Smoking Status: Current every day smoker Tobacco Type: Cigarettes How Often Do You Have a Drink Containing Alcohol: Never Recent Travel in [facility] within the Last 8 Weeks: No Recent Out of Country Travel within the Last 8 Weeks: No Immunization History Tetanus Immunization: Unsure Medications and Allergies Allergies Allergy/AdvReac Type Severity Reaction Status Date / Time latex Allergy Severe Rash Verified 04/01/17 02:01 *MDRO Multi-Drug Resistant AdvReac Unknown Uncoded 04/01/17 02:01 Organism Home Medications Medication Instructions Recorded Confirmed Type allopurinol 100 mg PO BID 05/09/18 05/09/18 History amlodipine 10 mg PO DAILY 05/09/18 05/09/18 History atenolol 50 mg PO DAILY 05/09/18 05/09/18 History atorvastatin 20 mg PO DAILY 05/09/18 05/09/18 History bupropion HCl 150 mg PO QAM 05/09/18 05/09/18 History clopidogrel 75 mg PO DAILY 05/09/18 05/09/18 History hydrochlorothiazide 25 mg PO DAILY 05/09/18 05/09/18 History lisinopril 20 mg PO DAILY 05/09/18 05/09/18 History Active Medications: Active Medications Acetaminophen (Tylenol) 650 mg PO Q4H PRN PRN Reason: Temp > 100.4 Hydrocodone Bitart/Acetaminophen ([place] 10/325) 1 tab PO Q4H PRN PRN Reason: PAIN SCALE 6 TO 10 Hydrocodone Bitart/Acetaminophen ([place] 5/325) 1 tab PO Q4H PRN PRN Reason: PAIN SCALE 3 TO 5 Al Hydroxide/Mg Hydroxide (Milk Of Magnesia Liq) 30 ml PO Q12H PRN PRN Reason: Mild Constipation Allopurinol (Zyloprim) 100 mg PO BID [facility] Last Admin: 05/09/18 12:54 Dose: 100 mg Amlodipine Besylate (Norvasc) 10 mg PO DAILY [facility] Last Admin: 05/09/18 12:54 Dose: 10 mg Atenolol (Tenormin) 50 mg PO DAILY [facility] Last Admin: 05/09/18 12:54 Dose: 50 mg Atorvastatin Calcium (Lipitor) 20 mg PO DAILY [facility] Last Admin: 05/09/18 12:54 Dose: 20 mg Bisacodyl (Dulcolax Supp) 10 mg RECTAL DAILY PRN PRN Reason: SEVERE CONSITIPATION Bupropion HCl (Wellbutrin Sr) 150 mg PO DAILY [facility] Last Admin: 05/09/18 12:54 Dose: 150 mg Clopidogrel Bisulfate (Plavix) 75 mg PO DAILY [facility] Last Admin: 05/09/18 12:54 Dose: 75 mg Hydrochlorothiazide (Hydrodiuril) 25 mg PO DAILY [facility] Last Admin: 05/09/18 12:54 Dose: 25 mg Lactulose (Lactulose Liq) 30 ml PO DAILY PRN PRN Reason: SEVERE CONSITIPATION Morphine Sulfate (Morphine Inj) 4 mg IV.PUSH Q3H PRN PRN Reason: BREAKTHROUGH PAIN Naloxone HCl (Narcan Inj) 0.4 mg IV.PUSH UNSCH PRN PRN Reason: SEE LABEL COMMENTS Ondansetron HCl (Zofran Inj) 4 mg IV.PUSH Q6H PRN PRN Reason: NAUSEA OR VOMITING Senna/Docusate Sodium (Stephany-Colace) 1 tab PO BID KEMAR Sennosides (Senokot) 17.2 mg PO Q12H PRN PRN Reason: Moderate Constipation Sodium Chloride (Ns Flush) 2 ml IV.FLUSH PRN PRN PRN Reason: FLUSH AFTER USING IV ACCESS Last Admin: 05/09/18 02:38 Dose: 2 ml Sodium Chloride (Ns Flush) 2 ml IV.FLUSH BID KEMAR Sodium Chloride (Ns Flush) 2 ml IV.FLUSH PRN PRN PRN Reason: FLUSH AFTER USING IV ACCESS Physical Exam Vital signs: Last Vital Signs Temp 98.4 F 05/09/18 12:01 Pulse 68 05/09/18 12:01 Resp 17 05/09/18 12:01 BP 173/72 H 05/09/18 12:01 Pulse Ox 96 05/09/18 12:01 Intake & Output 05/07/18 05/08/18 05/09/18 05/10/18 06:59 06:59 06:59 06:59 Intake Total 2500 / 2500 Output Total 500 / 500 Balance 1999 Weight 63.7 kg 61.235 kg Narrative: GENERAL: Well-nourished, well-developed adult female in no obvious distress. SKIN: Warm and dry. HEAD: Atraumatic. Normocephalic. CARDIOVASCULAR: Regular rate and rhythm. RESPIRATORY: No accessory muscle use. Clear to auscultation. Breath sounds equal bilaterally. GASTROINTESTINAL: Abdomen soft, tender around umbilicus, no guarding, non- distended. Positive bowel sounds. MUSCULOSKELETAL: Extremities without clubbing, cyanosis, or edema. No obvious deformities. NEUROLOGICAL: Drowsy. No obvious cranial nerve deficits. Motor grossly within normal limits. Normal speech. Results Labs CBC & Chem 7: 05/09/18 02:20 05/09/18 02:20 Imaging Impressions Chest X-Ray 05/09/18 02:16 CONCLUSION: 1. Subtle patchy airspace disease in the right lower lung zone which may reflect atelectasis. Cannot exclude aspiration or pneumonia in the appropriate clinical setting. Thoracic Aorta CT 05/09/18 02:54 CONCLUSION: 1. Redemonstration of extensive diffuse vascular disease. There is severe stenosis of the proximal left subclavian artery and severe distal aortic stenosis at the aortic bifurcation. Persistent severe stenosis of the left common iliac origin and moderate to severe stenosis of the right common iliac origin. 2. Stable appearance of mild to moderate celiac artery origin stenosis, long segment severe SMA stenosis and [id number] MECHE origin stenosis with prominent marginal artery. There is sufficient mesenteric artery involvement to implicate mesenteric ischemia in the appropriate clinical setting. 3. Focal loop of adherent small bowel in the anterior midabdomen with mild circumferential wall thickening and surrounding inflammatory change. There is relative prominence of more proximal small bowel loops although they do not appear definitively obstructed. Differential considerations include focal enteritis which may be related to adhesions or ischemic or infectious in etiology although somewhat chronic as findings were significantly less prominent but present on previous CT exam. Correlation with physical exam and patient's point of abdominal tenderness is recommended. 4. Additional ancillary findings, as above. Caprini VTE Risk Assessment Caprini VTE Risk Assessment: No/Low Risk (score <= 1) Caprini Risk Assessment Model: Point Value = 1 Point Value = 2 Point Value = 3 Point Value = 5 Age 41-60 Minor surgery BMI > 25 kg/m2 Swollen legs Varicose veins or History of unexplained or recurrent spontaneous Oral contraceptives or hormone replacement Sepsis (< 1 month) Serious lung disease, including pneumonia (< 1 month) Abnormal pulmonary function Acute myocardial infarction Congestive heart failure (< 1 month) History of inflammatory bowel disease Medical patient at bed rest Age 61-74 Arthroscopic surgery Major open surgery (> 45 min) Laparoscopic surgery (> 45 min) Malignancy Confined to bed (> 72 hours) Immobilizing plaster cast Central venous access Age >= 75 History of VTE Family history of VTE Factor V Leiden Prothrombin [id number] Lupus anticoagulant Anticardiolipin antibodies Elevated serum homocysteine Heparin-induced thrombocytopenia Other congenital or acquired thrombophilia Stroke (< 1 month) Elective arthroplasty Hip, pelvis, or leg fracture Acute spinal cord injury (< 1 month) Prophylaxis Regimen: Total Risk Factor Score Risk Level Prophylaxis Regimen 0-1 Low Early ambulation 2 Moderate Order ONE of the following: *Sequential Compression Device (SCD) *Heparin 5000 units SQ BID 3-4 Higher Order ONE of the following medications: *Heparin 5000 units SQ TID *Enoxaparin/Lovenox 40 mg SQ daily (WT < 150 kg, CrCl > 30 mL/min) *Enoxaparin/Lovenox 30 mg SQ daily (WT < 150 kg, CrCl > 10-29 mL/min) *Enoxaparin/Lovenox 30 mg SQ BID (WT < 150 kg, CrCl > 30 mL/min) AND/OR *Sequential Compression Device (SCD) 5 or more Highest Order ONE of the following medications: *Heparin 5000 units SQ TID (Preferred with Epidurals) *Enoxaparin/Lovenox 40 mg SQ daily (WT < 150 kg, CrCl > 30 mL/min) *Enoxaparin/Lovenox 30 mg SQ daily (WT < 150 kg, CrCl > 10-29 mL/min) *Enoxaparin/Lovenox 30 mg SQ BID (WT < 150 kg, CrCl > 30 mL/min) AND *Sequential Compression Device (SCD) Assessment and Plan (1) Mesenteric artery insufficiency: Code(s): K55.1 - Chronic vascular disorders of intestine Status: Acute (2) DARCIE (acute kidney injury): Code(s): N17.9 - Acute kidney failure, unspecified Status: Acute (3) Hematuria: Code(s): R31.9 - Hematuria, unspecified Status: Acute (4) Glycosuria: Code(s): R81 - Glycosuria Status: Acute Plan Patient is a 77-year-old female with a past medical history of anxiety, gout, coronary artery disease, hypertension and hyperlipidemia who presents to the emergency room with a complaint of abdominal pain. Surgical history is significant for hernia repair. Mesentery ischemia -Vascular surgery consulted. Planned mesenteric angiography and potential stenting for 05/10; keep n.p.o. -Pain control as indicated. DARCIE with hematuria and glycosuria -Creatinine 1.5 at admit. Previously normal creatinine on 01/2017. -We will order A1c; no history of diabetes found in record -CTA showed multiple bilateral renal cysts similar to prior exam as well as 2 mm calculus in mid left kidney. Right kidney is small and atrophic -new finding from abdominal CT done 03/2017. No hydronephrosis. -We will consult urology; appreciate assistance Hypertension, hyperlipidemia and CAD -chronic -Continue home meds DVT prophylaxis: Continue ASA per vascular; anticoagulation TBD after procedure 05/10 Discharge planning: TBD [facility] Prescription Drug Monitoring Database has been queried and verified prior to prescribing the controlled substance. Acute pain exception. This patient has normal, predicted, physiological, and time limited response to an adverse mechanical stimulus associated with surgery, trauma, or acute illness as described in my notes. There is a lack of alternative treatment options other than to include the prescribed narcotic treatment for this condition. H&P: Quality VTE Deep Vein Thrombosis/Pulmonary Embolism Present on Admission: No
--- NOTE | 2018-05-09 20:58 | P.CONURO ---
History of Present Illness Service: Consult date: 05/09/18 Requesting Physician: Angle Tamayo Reason for Consult: Atrophic right kidney Primary Care Provider: Mihai Agee MD Chief Complaint: Abdominal pain History of Present Illness: 77-year-old female admitted with mesenteric ischemia and incidentally noted to have atrophic changes of the right kidney. The patient also was noted to have microscopic hematuria and a urology consult was placed. The patient was evaluated by vascular surgery and is scheduled to undergo a mesenteric angiogram with possible stenting tomorrow. I reviewed the actual CT scan images and concur with the radiologist impression. The right kidney was markedly atrophic. There were also multiple bilateral renal cysts noted and a small 2 mm nonobstructing left renal calculus. The serum creatinine was measured at 1.5 and the urinalysis demonstrated 4-15 red cells per high-powered field. At the time of consultation the patient was resting comfortably and not in any acute distress. Review of Systems All other systems reviewed negative except as stated in HPI PMFSH - History History Provided By: Patient - Medical History Medical History: Medical History (Last Reviewed 05/09/18 @ 15:58 by RAMYA Hanks) Anxiety Chest pain HTN (hypertension) High cholesterol - Surgical History Surgical History: Surgical History (Last Reviewed 05/09/18 @ 15:59 by RAMYA Hanks) H/O hernia repair Hx of cardiac cath - Tobacco History Second Hand Smoke Exposure: Yes Tobacco Use In Past 30 Days: Yes Smoking Status: Current every day smoker Tobacco Type: Cigarettes - Alcohol History How Often Do You Have a Drink Containing Alcohol: Never - Substance Use History Substance History: No History of Abuse - Travel History Recent Travel in the [facility] Within the Last 8 Weeks: No Recent Travel Out of the Country Within the Last 8 Weeks: No - Immunization History Tetanus Immunization: Unsure Medications and Allergies Active Medications: Active Medications Acetaminophen (Tylenol) 650 mg PO Q4H PRN PRN Reason: Temp > 100.4 Hydrocodone Bitart/Acetaminophen ([place] 10/325) 1 tab PO Q4H PRN PRN Reason: PAIN SCALE 6 TO 10 Hydrocodone Bitart/Acetaminophen ([place] 5/325) 1 tab PO Q4H PRN PRN Reason: PAIN SCALE 3 TO 5 Al Hydroxide/Mg Hydroxide (Milk Of Magnesia Liq) 30 ml PO Q12H PRN PRN Reason: Mild Constipation Allopurinol (Zyloprim) 100 mg PO BID REPLACED BY [facility] Last Admin: 05/09/18 12:54 Dose: 100 mg Amlodipine Besylate (Norvasc) 10 mg PO DAILY REPLACED BY [facility] Last Admin: 05/09/18 12:54 Dose: 10 mg Atenolol (Tenormin) 50 mg PO DAILY REPLACED BY [facility] Last Admin: 05/09/18 12:54 Dose: 50 mg Atorvastatin Calcium (Lipitor) 20 mg PO DAILY REPLACED BY [facility] Last Admin: 05/09/18 12:54 Dose: 20 mg Bisacodyl (Dulcolax Supp) 10 mg RECTAL DAILY PRN PRN Reason: SEVERE CONSITIPATION Bupropion HCl (Wellbutrin Sr) 150 mg PO DAILY REPLACED BY [facility] Last Admin: 05/09/18 12:54 Dose: 150 mg Clopidogrel Bisulfate (Plavix) 75 mg PO DAILY REPLACED BY [facility] Last Admin: 05/09/18 12:54 Dose: 75 mg Hydrochlorothiazide (Hydrodiuril) 25 mg PO DAILY REPLACED BY [facility] Last Admin: 05/09/18 12:54 Dose: 25 mg Lactulose (Lactulose Liq) 30 ml PO DAILY PRN PRN Reason: SEVERE CONSITIPATION Morphine Sulfate (Morphine Inj) 4 mg IV.PUSH Q3H PRN PRN Reason: BREAKTHROUGH PAIN Naloxone HCl (Narcan Inj) 0.4 mg IV.PUSH UNSCH PRN PRN Reason: SEE LABEL COMMENTS Ondansetron HCl (Zofran Inj) 4 mg IV.PUSH Q6H PRN PRN Reason: NAUSEA OR VOMITING Senna/Docusate Sodium (Stephany-Colace) 1 tab PO BID REPLACED BY [facility] Sennosides (Senokot) 17.2 mg PO Q12H PRN PRN Reason: Moderate Constipation Sodium Chloride (Ns Flush) 2 ml IV.FLUSH PRN PRN PRN Reason: FLUSH AFTER USING IV ACCESS Last Admin: 05/09/18 02:38 Dose: 2 ml Sodium Chloride (Ns Flush) 2 ml IV.FLUSH BID REPLACED BY [facility] Sodium Chloride (Ns Flush) 2 ml IV.FLUSH PRN PRN PRN Reason: FLUSH AFTER USING IV ACCESS Allergies Allergy/AdvReac Type Severity Reaction Status Date / Time latex Allergy Severe Rash Verified 04/01/17 02:01 *MDRO Multi-Drug Resistant AdvReac Unknown Uncoded 11/17/17 02:01 Organism Home Medications Medication Instructions Recorded Confirmed Type allopurinol 100 mg PO BID 05/09/18 05/09/18 History amlodipine 10 mg PO DAILY 05/09/18 05/09/18 History atenolol 50 mg PO DAILY 05/09/18 05/09/18 History atorvastatin 20 mg PO DAILY 05/09/18 05/09/18 History bupropion HCl 150 mg PO QAM 05/09/18 05/09/18 History clopidogrel 75 mg PO DAILY 05/09/18 05/09/18 History hydrochlorothiazide 25 mg PO DAILY 05/09/18 05/09/18 History lisinopril 20 mg PO DAILY 05/09/18 05/09/18 History Physical Exam Vital Signs - 24 hr 05/09/18 01:42 05/09/18 04:06 05/09/18 04:30 Temperature 98.0 F 97.7 F Pulse Rate 77 77 75 Respiratory Rate 18 18 Blood Pressure 169/87 H 161/60 H 130/79 Pulse Oximetry 96 100 100 05/09/18 05:10 05/09/18 06:16 05/09/18 07:00 Temperature Pulse Rate 78 85 84 Respiratory Rate 18 18 18 Blood Pressure 111/72 129/77 98/55 L Pulse Oximetry 98 05/09/18 07:01 05/09/18 07:04 05/09/18 10:18 Temperature 98 F 98.1 F Pulse Rate 80 80 Respiratory Rate 18 16 Blood Pressure 101/65 180/75 H Pulse Oximetry 10 L 100 05/09/18 12:01 05/09/18 16:02 05/09/18 19:39 Temperature 98.4 F 97.7 F 99.0 F Pulse Rate 68 68 68 Respiratory Rate 17 16 20 Blood Pressure 173/72 H 160/69 H 167/73 H Pulse Oximetry 96 95 92 L Physical Exam: GENERAL: This is a well-nourished, well-developed patient, in no apparent distress. SKIN: No rashes, ecchymoses or lesions. Cool and dry. HEAD: Atraumatic. Normocephalic. No temporal or scalp tenderness. EYES: Pupils equal round and reactive. Extraocular motions intact. No scleral icterus. No injection or drainage. ENT: Nose without bleeding, purulent drainage or septal hematoma. Throat without erythema, tonsillar hypertrophy or exudate. Uvula midline. Airway patent. NECK: Trachea midline. No JVD or lymphadenopathy. Supple, nontender, no meningeal signs. GASTROINTESTINAL: Abdomen soft, non-tender, nondistended. No peritoneal signs. GENITOURINARY: No CVA tenderness MUSCULOSKELETAL: Extremities without clubbing, cyanosis, or edema. NEUROLOGICAL: Awake and alert. Cranial nerves II through XII intact. Motor and sensory grossly within normal limits. Five out of 5 muscle strength in all muscle groups. Normal speech. Laboratory Results - last 24 hr 05/09/18 05/09/18 05/09/18 02:20 02:20 02:20 CBC w Diff Auto diff final WBC 7.9 RBC 3.84 L Hgb 12.7 Hct 37.5 MCV 97.5 MCH 33.0 MCHC 33.8 RDW 14.1 Plt Count 201 MPV 8.4 Neut % (Auto) 79.9 H Lymph % (Auto) 14.6 [place] % (Auto) 3.6 Eos % (Auto) 0.9 Baso % (Auto) 1.0 Neut # (Auto) 6.2 Lymph # (Auto) 1.2 [place] # (Auto) 0.3 Eos # (Auto) 0.1 Baso # (Auto) 0.1 WBC Differential . Differential Comment . PT 9.7 L INR 1.0 APTT 24.2 Sodium 140 Potassium 4.1 Chloride 106 Carbon Dioxide 25.3 Anion Gap 9 BUN 31 H Creatinine 1.50 H Estimated GFR 33 L Random Glucose 158 H Lactic Acid Calcium 9.2 Magnesium 2.3 Total Bilirubin 0.6 AST 14 L ALT 17 Alkaline Phosphatase 91 Total Creatine Kinase 47 Troponin I Less than 0.02 L Total Protein 7.9 Albumin 3.7 Lipase 208 Urine Color Urine Clarity Urine pH Ur Specific [place] Urine Protein Urine Glucose (UA) Urine Ketones Urine Occult Blood Urine Nitrate Urine Bilirubin Urine Urobilinogen Ur Leukocyte Esterase Urine RBC Urine WBC Ur Squamous Epith Cells Micro UA Comment Ur Microscopic Review Urine Culture Comments Blood Type Blood Type Recheck Antibody Screen 05/09/18 05/09/18 05/09/18 02:20 02:20 02:50 CBC w Diff WBC RBC Hgb Hct MCV MCH MCHC RDW Plt Count MPV Neut % (Auto) Lymph % (Auto) [place] % (Auto) Eos % (Auto) Baso % (Auto) Neut # (Auto) Lymph # (Auto) [place] # (Auto) Eos # (Auto) Baso # (Auto) WBC Differential Differential Comment PT INR APTT Sodium Potassium Chloride Carbon Dioxide Anion Gap BUN Creatinine Estimated GFR Random Glucose Lactic Acid 1.1 Calcium Magnesium Total Bilirubin AST ALT Alkaline Phosphatase Total Creatine Kinase Troponin I Total Protein Albumin Lipase Urine Color Yellow Urine Clarity Clear Urine pH 7.0 Ur Specific [place] 1.025 Urine Protein 30 H Urine Glucose (UA) 100 H Urine Ketones Negative Urine Occult Blood Trace Urine Nitrate Negative Urine Bilirubin Negative Urine Urobilinogen 0.2 Ur Leukocyte Esterase Negative Urine RBC 4-15 H Urine WBC 0-5 Ur Squamous Epith Cells 0-5 Micro UA Comment Cath-culture not ind Ur Microscopic Review Microscopic reviewed Urine Culture Comments Cath-cult not ind Blood Type O Positive Blood Type Recheck Not needed Antibody Screen Negative 05/09/18 05:40 CBC w Diff WBC RBC Hgb Hct MCV MCH MCHC RDW Plt Count MPV Neut % (Auto) Lymph % (Auto) [place] % (Auto) Eos % (Auto) Baso % (Auto) Neut # (Auto) Lymph # (Auto) [place] # (Auto) Eos # (Auto) Baso # (Auto) WBC Differential Differential Comment PT INR APTT Sodium Potassium Chloride Carbon Dioxide Anion Gap BUN Creatinine Estimated GFR Random Glucose Lactic Acid Calcium Magnesium Total Bilirubin AST ALT Alkaline Phosphatase Total Creatine Kinase Troponin I Less than 0.02 L Total Protein Albumin Lipase Urine Color Urine Clarity Urine pH Ur Specific [place] Urine Protein Urine Glucose (UA) Urine Ketones Urine Occult Blood Urine Nitrate Urine Bilirubin Urine Urobilinogen Ur Leukocyte Esterase Urine RBC Urine WBC Ur Squamous Epith Cells Micro UA Comment Ur Microscopic Review Urine Culture Comments Blood Type Blood Type Recheck Antibody Screen Result Diagrams: 05/09/18 02:20 05/09/18 02:20 Imaging: ITS Impressions Chest X-Ray 05/09/18 02:16 CONCLUSION: 1. Subtle patchy airspace disease in the right lower lung zone which may reflect atelectasis. Cannot exclude aspiration or pneumonia in the appropriate clinical setting. Thoracic Aorta CT 05/09/18 02:54 CONCLUSION: 1. Redemonstration of extensive diffuse vascular disease. There is severe stenosis of the proximal left subclavian artery and severe distal aortic stenosis at the aortic bifurcation. Persistent severe stenosis of the left common iliac origin and moderate to severe stenosis of the right common iliac origin. 2. Stable appearance of mild to moderate celiac artery origin stenosis, long segment severe SMA stenosis and [id number] MECHE origin stenosis with prominent marginal artery. There is sufficient mesenteric artery involvement to implicate mesenteric ischemia in the appropriate clinical setting. 3. Focal loop of adherent small bowel in the anterior midabdomen with mild circumferential wall thickening and surrounding inflammatory change. There is relative prominence of more proximal small bowel loops although they do not appear definitively obstructed. Differential considerations include focal enteritis which may be related to adhesions or ischemic or infectious in etiology although somewhat chronic as findings were significantly less prominent but present on previous CT exam. Correlation with physical exam and patient's point of abdominal tenderness is recommended. 4. Additional ancillary findings, as above. Assessment and Plan - Assessment (1) Atrophy of right kidney Code(s): N26.1 - Atrophy of kidney (terminal) Status: Acute (2) Hematuria Code(s): R31.9 - Hematuria, unspecified Status: Acute - Plan Urologic impression: 1. Microscopic hematuria of indeterminate etiology 2. Markedly atrophic right kidney 3. Bilateral renal cysts 4. 2 mm nonobstructing left renal calculus Recommendations: 1. No acute intervention indicated at the present time. 2. Patient to follow-up with me in the office after she is discharged from the hospital and medically stable for further urologic evaluation to include cystoscopy. 3. We will be available as needed during present hospitalization.
[2018-05-09] MEDS: Senna/Docusate Sodium 8.6/50 MG Tablet PO SCH (21:17)
[2018-05-10] MEDS ORDERED: Heparin 10,000 UNITS/10 ML Vial (for IV use) ONE (06:44)
[2018-05-10] MEDS ORDERED: Bupivacaine PF 0.5% Inj 10 ML Vial ONE (06:44)
[2018-05-10] MEDS ORDERED: Protamine Sulfate Inj 50 MG/5 ML Vial ONE (06:44)
[2018-05-10] MEDS ORDERED: ceFAZolin 1 GM Premix Inj 2 GM/100 ML PIGGYBACK IV.SIG ONE (06:44)
[2018-05-10] MEDS ORDERED: Thrombin Topical 20,000 UNIT Spray Kit TOPICAL ONE (06:44)
[2018-05-10] MEDS ORDERED: Heparin/NS PF Inj 500 ML ONE (06:45)
[2018-05-10 07:15] LABS: Calcium 8.6 mg/dL (8.5-10.1); Carbon Dioxide 26.8 meq/L (21.0-32.0); Potassium 3.8 meq/L (3.5-5.1)
[2018-05-10] MEDS: Allopurinol 100 MG Tablet PO SCH ×2 (08:40→22:00)
[2018-05-10] MEDS: hydroCHLOROthiazide 25 MG Tablet PO SCH (08:40)
[2018-05-10] MEDS: amLODIPine 10 MG Tablet PO SCH (08:40)
[2018-05-10] MEDS: Atenolol 50 MG Tablet PO SCH (08:40)
[2018-05-10] MEDS ORDERED: Sodium Chlor 0.9% Inj 500 ML IV.CONT ONE (09:30)
[2018-05-10] MEDS ORDERED: Metoprolol Tartrate 25 MG Tablet PO ONE (09:30)
[2018-05-10] MEDS ORDERED: Chlorhexidine Gluconate 2% 1 Pack (2 Cloths) TOPICAL ONE (09:30)
--- NOTE | 2018-05-10 12:20 | P.PNVS ---
- Pre-operative Note Planned Procedure: Mesenteric angiogram and possible stenting Interval History: Pt has been feeling well. Does endorse lower abdominal pain but no peritonitis Labs: WBC 7.9 th/mm3 (4.0-11.0) 05/09/18 02:20 RBC 3.84 mil/mm3 (4.00-5.30) L 05/09/18 02:20 Hgb 12.7 gm/dL (11.6-15.3) 05/09/18 02:20 Hct 37.5 % (35.0-46.0) 05/09/18 02:20 MCV 97.5 fL (80.0-100.0) 05/09/18 02:20 MCH 33.0 pg (27.0-34.0) 05/09/18 02:20 MCHC 33.8 % (32.0-36.0) 05/09/18 02:20 RDW 14.1 % (11.6-17.2) 05/09/18 02:20 Plt Count 201 th/mm3 (150-450) 05/09/18 02:20 MPV 8.4 fL (7.0-11.0) 05/09/18 02:20 INR 1.0 Ratio 05/09/18 02:20 Sodium 141 meq/L (136-145) 05/10/18 05:54 Potassium 3.8 meq/L (3.5-5.1) 05/10/18 05:54 Chloride 108 meq/L (98-107) H 05/10/18 05:54 Carbon Dioxide 26.8 meq/L (21.0-32.0) 05/10/18 05:54 Anion Gap 6 meq/L (5-15) 05/10/18 05:54 BUN 21 mg/dL (7-18) H 05/10/18 05:54 Random Glucose 79 mg/dL (74-106) 05/10/18 05:54 Calcium 8.6 mg/dL (8.5-10.1) 05/10/18 05:54 Blood: T&S Imaging: ITS Impressions Chest X-Ray 05/09/18 02:16 CONCLUSION: 1. Subtle patchy airspace disease in the right lower lung zone which may reflect atelectasis. Cannot exclude aspiration or pneumonia in the appropriate clinical setting. Thoracic Aorta CT 05/09/18 02:54 CONCLUSION: 1. Redemonstration of extensive diffuse vascular disease. There is severe stenosis of the proximal left subclavian artery and severe distal aortic stenosis at the aortic bifurcation. Persistent severe stenosis of the left common iliac origin and moderate to severe stenosis of the right common iliac origin. 2. Stable appearance of mild to moderate celiac artery origin stenosis, long segment severe SMA stenosis and [id number] MECHE origin stenosis with prominent marginal artery. There is sufficient mesenteric artery involvement to implicate mesenteric ischemia in the appropriate clinical setting. 3. Focal loop of adherent small bowel in the anterior midabdomen with mild circumferential wall thickening and surrounding inflammatory change. There is relative prominence of more proximal small bowel loops although they do not appear definitively obstructed. Differential considerations include focal enteritis which may be related to adhesions or ischemic or infectious in etiology although somewhat chronic as findings were significantly less prominent but present on previous CT exam. Correlation with physical exam and patient's point of abdominal tenderness is recommended. 4. Additional ancillary findings, as above. Orders: NPO Ancef 2g IV OCTOR Post-operative Destination: PACU Operative site marked: Yes Consent: Informed consent has been obtained from Jud Delaney. I have explained the procedure in detail and discussed the risks, benefits, and potential complications. All questions have been answered. Patient Contact Information: Son Keren) [phone]
[2018-05-10] MEDS ORDERED: Iohexol 300 MG/ML 50 ML Vial (for Rad Diag) IVCONTRAST ONE (13:50)
--- NOTE | 2018-05-10 14:21 | P.OP ---
- Preoperative Diagnosis (1) Mesenteric artery insufficiency - Postoperative Diagnosis (1) Mesenteric artery insufficiency Date of procedure: 05/10/18 Procedure: 1. RIGHT brachial exposure 2. SMA stent (7x22 iCAST) 3. Aortogram w/ selective mesenteric angiogram Implants: 7x22 iCAST stent Anesthesia: GETA Surgeon: Aleaxnder Modi MD Antitank Assault Gunner: Sridhar Montano Estimated blood loss (mL): 30 IV fluids (mL): 1,000 Pathology: none sent Operation and Findings: SMA high grade stenosis, able to recanalize and stent celiac with <40% stenosis palpable pulse in R radial after procedure RADIATION DOSE: 2384mGy
[2018-05-10] MEDS: buPROPion 150 MG 12 HR Tablet PO SCH (14:28)
[2018-05-10] MEDS: Senna/Docusate Sodium 8.6/50 MG Tablet PO SCH ×2 (14:28→22:00)
[2018-05-10] MEDS ORDERED: fentaNYL Citrate Inj 100 MCG/2 ML Ampul ONE (14:41)
--- NOTE | 2018-05-10 15:33 | MP ---
cc: Alexander Modi MD DATE OF OPERATION: 05/10/2018 PREOPERATIVE DIAGNOSIS: Mesenteric insufficiency, superior mesenteric artery occlusion. POSTOPERATIVE DIAGNOSIS: Mesenteric insufficiency, superior mesenteric artery occlusion. PROCEDURE PERFORMED: 1. Right brachial exposure. 2. Aortogram with selective superior mesenteric artery angiogram. 3. Superior mesenteric artery stent with a 7 x 22 iCAST. ATTENDING SURGEON: Alexander Modi MD. BARREL LATHE OPERATOR OUTSIDE SURGEON: Sridhar Montano. ANESTHESIA: General. INDICATIONS FOR PROCEDURE: Ms. Delaney is a 77-year-old lady with mesenteric ischemia and postprandial abdominal pain. She is taken to the operating room for angiographic evaluation and treatment. There was no prior catheter-based imaging available for my review. She does have a left subclavian artery stenosis and so her right subclavian artery was chosen as the access point. DESCRIPTION OF PROCEDURE: Informed consent was obtained from the patient. She was taken to the operating room and placed supine on the operating table. An appropriate timeout was taken to ensure the patient's identity, operative site, and planned procedure. The administration of 2 grams of Ancef was initiated prior to skin incision and will be discontinued after a single preoperative dose. Everyone in the room agreed with the timeout and we proceeded. Her right arm was prepped and draped. An incision was made in the antecubital and carried down through subcutaneous tissue with electrocautery. The brachial artery was identified and dissected free for several centimeters. The patient was systemically heparinized with 3000 units of IV heparin and approximately 15 minutes later, 3000 additional units were administered. A 21-gauge micropuncture needle was used to access the brachial artery. This was exchanged using Seldinger technique for a micropuncture sheath through which a 0.035 Glidewire was introduced. Microsheath was exchanged for a 5-[place] sheath. The Glidewire was advanced to the ascending aorta and the pigtail catheter was placed over this. The pigtail catheter and Glidewire were then advanced down to the middle of the abdominal aorta. The Glidewire exchanged for a [place]. The pigtail catheter was removed and the 5-[place] sheath was exchanged for a 7-[place] 70 cm sheath. This was unable to pass the high peak aortic arch and, as such, the catheter was reintroduced. The Haskins was exchanged for an Amplatz wire. With the Amplatz wire as a stiff rail, the 7-[place] 70 sheath was able to pass. Vertebral catheter was then advanced over the Amplatz and the Amplatz was removed and a mesenteric angiogram was obtained. A Glidewire was then reintroduced and navigated into the SMA past the occlusion. The vertebral catheter was not able to traverse through the occlusion and, as such, it was exchanged for a CXI catheter, which was able to navigate over the Glidewire past the occlusion. This was confirmed angiographically and the glide was exchanged for a [place]askins. The CXI catheter was removed and a 5 x 40 balloon was used to predilate the lesion and aortogram confirmed the location of the lesion. A 7 x 22 iCAST was then inserted and deployed without difficulty. The completion angiogram showed excellent result without any recoil or extravasation and no embolic complications. The wire, catheter, and sheath were removed. The arteriotomy was closed with interrupted 6.0 Prolene sutures. There was a palpable pulse in the wrist. The wound was infiltrated with Marcaine, irrigated, made hemostatic, and closed with 2-0 Polysorb, 3-0 Polysorb, and 4-0 Monocryl. I was present, scrubbed, and performed the johnson and critical portions. INTERPRETATION OF IMAGES: The patient has an SMA occlusion with distal reconstitution. This was successfully recanalized and stented without any residual stenosis. The celiac axis has less than 40% stenosis. MD MANUELA Pedraza/geeta , 02:26 PM , 02:34 PM
--- NOTE | 2018-05-10 17:03 | P.PNIM ---
Subjective Interval history: Patient is seen lying in bed prior to going to surgery. Reports no new concerns or complaints. Still having some intermittent abdominal pain. No nausea or vomiting. No chest pain or shortness of breath. Denies any history of kidney disease or urinary problems. Physical Exam Vital signs: Last Vital Signs Temp 98.1 F 05/10/18 16:00 Pulse 70 05/10/18 16:00 Resp 16 05/10/18 16:00 BP 127/64 05/10/18 16:00 Pulse Ox 97 05/10/18 16:00 Intake & Output 05/08/18 05/09/18 05/10/18 05/11/18 06:59 06:59 06:59 06:59 Intake Total 2500 / 2500 1100 / 1100 Output Total 1200 / 1200 630 / 630 Balance 1300 / 1300 470 / 470 Weight 63.7 kg 61.235 kg Narrative: GENERAL: Well-nourished, well-developed adult female in no obvious distress. SKIN: Warm and dry. HEAD: Atraumatic. Normocephalic. CARDIOVASCULAR: Regular rate and rhythm. RESPIRATORY: No accessory muscle use. Clear to auscultation. Breath sounds equal bilaterally. GASTROINTESTINAL: Abdomen soft, tender around umbilicus, no guarding, non- distended. Positive bowel sounds. MUSCULOSKELETAL: Extremities without clubbing, cyanosis, or edema. No obvious deformities. NEUROLOGICAL: Drowsy. No obvious cranial nerve deficits. Motor grossly within normal limits. Normal speech. Urinary Catheter Management Indwelling Urethral Catheter: Cath placed during this visit: yes Urethral indwelling: No Insertion date: 05/09/18 Insertion time: 02:45 Results Labs CBC & Chem 7: 05/09/18 02:20 05/10/18 05:54 Labs: Microbiology 05/09/18 05:40 Blood - Peripheral Aerobic Blood Culture - Preliminary No growth in 1 day 05/09/18 05:40 Blood - Peripheral Anaerobic Blood Culture - Preliminary No growth in 1 day 05/09/18 02:30 Blood - Peripheral Aerobic Blood Culture - Preliminary No growth in 1 day 05/09/18 02:30 Blood - Peripheral Anaerobic Blood Culture - Preliminary No growth in 1 day Assessment and Plan (1) Mesenteric artery insufficiency: Code(s): K55.1 - Chronic vascular disorders of intestine Status: Acute Plan Patient is a 77-year-old female with a past medical history of anxiety, gout, coronary artery disease, hypertension and hyperlipidemia who presents to the emergency room with a complaint of abdominal pain. Surgical history is significant for hernia repair. Mesentery ischemia -Vascular surgery consulted. Planned mesenteric angiography and potential stenting today 05/10; keep n.p.o. -Pain control as indicated. DARCIE with hematuria and glycosuria -Creatinine 1.5 at admit. Previously normal creatinine on 01/2017. -We will order A1c; no history of diabetes found in record -CTA showed multiple bilateral renal cysts similar to prior exam as well as 2 mm calculus in mid left kidney. Right kidney is small and atrophic -new finding from abdominal CT done 03/2017. No hydronephrosis. -We will consult urology; appreciate assistance. Evaluated by urology 05/10 ; no further workup indicated at this time. Patient will schedule outpatient follow-up. Hypertension, hyperlipidemia and CAD -chronic -Continue home meds DVT prophylaxis: Continue ASA per vascular; anticoagulation TBD after procedure today Discharge planning: TBD Progress Note: Quality VTE Deep Vein Thrombosis/Pulmonary Embolism Present on Admission: No
[2018-05-10 17:12] LABS: Hemoglobin A1c 5.6 % (4.3-6.0)
[2018-05-11 05:08] LABS: Hematocrit 31.3 % (35.0-46.0); Hemoglobin 10.7 gm/dL (11.6-15.3); Mean Corpuscular HGB Conc 34.3 % (32.0-36.0); Mean Corpuscular Hemoglobin 34.2 pg (27.0-34.0); Mean Corpuscular Volume 99.9 fL (80.0-100.0); Mean Platelet Volume 8.6 fL (7.0-11.0); Platelet Count 149 th/mm3 (150-450); Red Blood Count 3.13 mil/mm3 (4.00-5.30); Red Cell Distribution Width 14.5 % (11.6-17.2); White Blood Count 6.4 th/mm3 (4.0-11.0)
[2018-05-11 05:34] LABS: Potassium 3.4 meq/L (3.5-5.1)
--- NOTE | 2018-05-11 08:36 | P.PNVS ---
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 Pt s/p Aortogram w/ selective mesenteric angiogram/ SMA stent POD 1 Pt w/o complaints this am Pt denied abdominal pain Pt w/o postprandial pain RIGHT arm incision intact with mild swelling and ecchymosis Objective Vital Signs / I&O: Vital Signs 05/10/18 14:36 05/10/18 14:45 05/10/18 15:00 Temperature 98.3 F Pulse Rate 80 73 80 Respiratory Rate 24 15 24 Blood Pressure 125/69 111/60 134/77 Pulse Oximetry 91 L 96 100 05/10/18 15:15 05/10/18 15:30 05/10/18 15:45 Temperature 97.8 F Pulse Rate 71 70 68 Respiratory Rate 24 17 17 Blood Pressure 136/66 121/77 121/66 Pulse Oximetry 95 95 96 05/10/18 16:00 05/10/18 18:10 05/10/18 20:00 Temperature 98.1 F 97.9 F 98.5 F Pulse Rate 70 75 69 Respiratory Rate 16 16 16 Blood Pressure 127/64 89/50 L 99/54 L Pulse Oximetry 97 94 L 05/10/18 20:10 05/11/18 00:00 05/11/18 04:00 Temperature 99.4 F 99.1 F Pulse Rate 72 69 Respiratory Rate 14 16 Blood Pressure 96/51 L 96/53 L Pulse Oximetry 94 L 95 93 L 05/11/18 07:48 05/11/18 07:49 Temperature 98.4 F Pulse Rate 63 Respiratory Rate 15 Blood Pressure 86/47 L Pulse Oximetry 93 L 93 L Intake & Output 05/10/18 05/11/18 05/11/18 18:59 06:59 18:59 Intake Total 1340 / 1340 240 / 240 Output Total 680 / 680 475 / 475 Balance 660 / 660 -235 / -235 Weight 64 kg Intake: IV 100 / 100 Heparin/NS PF Inj 500 ML @ 0 0 / 0 mls/hr .ROUTE .STK-MED ONE Rx#: [id number] Ancef 1 GM Premix Inj 2 gm In 100 / 100 100 ml @ 0 mls/hr IV.SIG .STK- MED ONE Rx#:[id number] Oral 240 / 240 240 / 240 Anesthesia Amount 1000 / 1000 Output: Urine 350 / 350 475 / 475 Estimated Blood Loss 30 / 30 Urine Amount (Catheter) 300 / 300 Indwelling Urethral Catheter 300 / 300 Other: # Voids 1 Date of Last Bowel Movement 05/08/18 05/08/18 # Bowel Movements 0 Exam: GENERAL: alert in NAD,GCS 15/speech impediment noted SKIN: Warm and dry/RIGHT arm incision soft with mild swelling and ecchymosis CARDIOVASCULAR: Regular rate and rhythm without murmurs, gallops, or rubs. RESPIRATORY: Breath sounds equal bilaterally. No accessory muscle use. GASTROINTESTINAL: Abdomen soft, non-tender, nondistended/BS +/Mcdonald intact Laboratory Results - last 24 hr 05/10/18 05/11/18 05/11/18 09:33 04:51 04:51 WBC 6.4 RBC 3.13 L Hgb 10.7 L Hct 31.3 L MCV 99.9 MCH 34.2 H MCHC 34.3 RDW 14.5 Plt Count 149 L MPV 8.6 Sodium 139 Potassium 3.4 L Chloride 106 Carbon Dioxide 25.0 Anion Gap 8 BUN 26 H Creatinine 1.38 H Estimated GFR 37 L Random Glucose 85 Hemoglobin A1c 5.6 Calcium 8.0 L Microbiology 05/09/18 05:40 Aerobic Blood Culture - Preliminary Blood - Peripheral No growth in 1 day Anaerobic Blood Culture - Preliminary No growth in 1 day 05/09/18 02:30 Aerobic Blood Culture - Preliminary Blood - Peripheral No growth in 1 day Anaerobic Blood Culture - Preliminary No growth in 1 day Assessment and Plan - Assessment (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 No abdominal pain with oatmeal and breakfast this morning. R Arm incision ecchymotic but palpable radial pulse
[2018-05-11] MEDS: Allopurinol 100 MG Tablet PO SCH ×2 (08:41→22:17)
[2018-05-11] MEDS: Senna/Docusate Sodium 8.6/50 MG Tablet PO SCH ×2 (08:42→22:17)
[2018-05-11] MEDS: Atenolol 50 MG Tablet PO SCH (08:42)
[2018-05-11] MEDS: buPROPion 150 MG 12 HR Tablet PO SCH (08:42)
[2018-05-11] MEDS: amLODIPine 10 MG Tablet PO SCH (08:43)
[2018-05-11] MEDS: hydroCHLOROthiazide 25 MG Tablet PO SCH (08:43)
[2018-05-11] MEDS ORDERED: Dextrose 50% in Water 50 ML Vial IV.PUSH PRN (08:47)
--- NOTE | 2018-05-11 09:17 | P.PNIM ---
Subjective Interval history: The pt felt better. She said she had breakfast. She says her blood pressure normally runs high. She denied shortness of breath or abdominal pain. Discussed with nursing at the bedside. Physical Exam Vital signs: Vital Signs 05/10/18 14:36 05/10/18 14:45 05/10/18 15:00 Temperature 98.3 F Pulse Rate 80 73 80 Respiratory Rate 24 15 24 Blood Pressure 125/69 111/60 134/77 Pulse Oximetry 91 L 96 100 05/10/18 15:15 05/10/18 15:30 05/10/18 15:45 Temperature 97.8 F Pulse Rate 71 70 68 Respiratory Rate 24 17 17 Blood Pressure 136/66 121/77 121/66 Pulse Oximetry 95 95 96 05/10/18 16:00 05/10/18 18:10 05/10/18 20:00 Temperature 98.1 F 97.9 F 98.5 F Pulse Rate 70 75 69 Respiratory Rate 16 16 16 Blood Pressure 127/64 89/50 L 99/54 L Pulse Oximetry 97 94 L 05/10/18 20:10 05/11/18 00:00 05/11/18 04:00 Temperature 99.4 F 99.1 F Pulse Rate 72 69 Respiratory Rate 14 16 Blood Pressure 96/51 L 96/53 L Pulse Oximetry 94 L 95 93 L 05/11/18 07:00 05/11/18 07:48 05/11/18 07:49 Temperature 98.4 F Pulse Rate 68 63 Respiratory Rate 15 Blood Pressure 86/47 L Pulse Oximetry 93 L 93 L 05/11/18 08:00 Temperature Pulse Rate 66 Respiratory Rate Blood Pressure Pulse Oximetry Intake & Output 05/10/18 05/11/18 05/11/18 18:59 06:59 18:59 Intake Total 1340 / 1340 240 / 240 Output Total 680 / 680 475 / 475 Balance 660 / 660 -235 / -235 Weight 64 kg Intake: IV 100 / 100 Heparin/NS PF Inj 500 ML @ 0 0 / 0 mls/hr .ROUTE .STK-MED ONE Rx#: [id number] Ancef 1 GM Premix Inj 2 gm In 100 / 100 100 ml @ 0 mls/hr IV.SIG .STK- MED ONE Rx#:[id number] Oral 240 / 240 240 / 240 Anesthesia Amount 1000 / 1000 Output: Urine 350 / 350 475 / 475 Estimated Blood Loss Urine Amount (Catheter) 300 / 300 Indwelling Urethral Catheter 300 / 300 Other: # Voids 1 Date of Last Bowel Movement 05/08/18 05/08/18 # Bowel Movements 0 Narrative: GENERAL: Well-nourished, well-developed adult female in no obvious distress. SKIN: Warm and dry. HEAD: Atraumatic. Normocephalic. CARDIOVASCULAR: Regular rate and rhythm. RESPIRATORY: No accessory muscle use. Clear to auscultation. Breath sounds equal bilaterally. GASTROINTESTINAL: Abdomen soft, nontender, no guarding, non-distended. Positive bowel sounds. MUSCULOSKELETAL: Extremities without clubbing, cyanosis, or edema. No obvious deformities. NEUROLOGICAL: Awake and alert. No obvious cranial nerve deficits. Motor grossly within normal limits. Normal speech. - Urinary Catheter Management Indwelling Urethral Catheter Cath placed during this visit: yes Urethral indwelling: No Reason for continuing: Hourly intake/output Insertion date: 05/09/18 Insertion time: 02:45 Results - Labs CBC & Chem 7: 05/11/18 04:51 05/11/18 04:51 Laboratory Results - last 24 hr 05/10/18 05/11/18 05/11/18 09:33 04:51 04:51 WBC 6.4 RBC 3.13 L Hgb 10.7 L Hct 31.3 L MCV 99.9 MCH 34.2 H MCHC 34.3 RDW 14.5 Plt Count 149 L MPV 8.6 Sodium 139 Potassium 3.4 L Chloride 106 Carbon Dioxide 25.0 Anion Gap 8 BUN 26 H Creatinine 1.38 H Estimated GFR 37 L Random Glucose 85 Hemoglobin A1c 5.6 Calcium 8.0 L Microbiology 05/09/18 05:40 Blood - Peripheral Aerobic Blood Culture - Preliminary No growth in 1 day 05/09/18 05:40 Blood - Peripheral Anaerobic Blood Culture - Preliminary No growth in 1 day 05/09/18 02:30 Blood - Peripheral Aerobic Blood Culture - Preliminary No growth in 1 day 05/09/18 02:30 Blood - Peripheral Anaerobic Blood Culture - Preliminary No growth in 1 day Assessment and Plan - Assessment (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 Surgical history is significant for hernia repair. Mesenteric ischemia Vascular surgery consult appreciated. S/p aortogram w/ selective mesenteric angiogram/ SMA stent on 05/10. -Pain control as indicated. -follow up with vascular surgery. -ADAT. -incentive spirometry. DARCIE With hematuria and glycosuria. Creatinine 1.5 at admit. Previously normal creatinine on 01/2017. CTA showed multiple bilateral renal cysts similar to prior exam as well as 2 mm calculus in mid left kidney. Right kidney is small and atrophic -new finding from abdominal CT done 03/2017. No hydronephrosis. Evaluated by urology 05/10; no further workup indicated at this time. -Patient will schedule outpatient follow-up with urology. -follow BMP and avoid nephrotoxins. -IVFs. Hypertension Has been hypotensive. -hold antihypertensives. -IVFs. Anemia Hemoglobin has been decreasing. Normocytic. -follow CBC and transfuse as indicated. -check anemia labs. Hypokalemia Likely s/t decreased PO intake. -replete and monitor. DVT prophylaxis: per vascular
[2018-05-11] MEDS: Dextrose 5%/NaCl 0.9% Inj 1,000 ML IV.CONT SCH ×2 (09:26→18:05)
[2018-05-11] MEDS ORDERED: Potassium Chloride 25 MEQ Effervescent Tablet PO ONE (10:00)
[2018-05-11 10:23] LABS: % Iron Saturation 15.5 % (20-50); Iron 34 mcg/dL (50-170); Total Iron Binding Capacity 220 mcg/dL (250-450)
[2018-05-11 10:47] LABS: Ferritin 212 ng/mL (8-252); Vitamin B12 300 pg/mL (193-986)
[2018-05-12 03:57] LABS: Hematocrit 29.8 % (35.0-46.0); Hemoglobin 10.2 gm/dL (11.6-15.3); Mean Corpuscular HGB Conc 34.2 % (32.0-36.0); Mean Corpuscular Volume 99.5 fL (80.0-100.0); Mean Platelet Volume 8.6 fL (7.0-11.0); Platelet Count 129 th/mm3 (150-450); Red Cell Distribution Width 14.3 % (11.6-17.2); White Blood Count 5.4 th/mm3 (4.0-11.0)
[2018-05-12 04:19] LABS: Magnesium 1.8 mg/dL (1.5-2.5); Potassium 3.3 meq/L (3.5-5.1)
--- NOTE | 2018-05-12 07:12 | P.PNVS ---
Subjective Subjective/Hospital Course: POD#2 s/p SMA stent ate regular diet last night (hamburger) without pain arm ok Objective Vital Signs / I&O: Vital Signs 05/11/18 07:48 05/11/18 07:49 05/11/18 08:00 Temperature 98.4 F Pulse Rate 63 66 Respiratory Rate 15 Blood Pressure 86/47 L Pulse Oximetry 93 L 93 L 05/11/18 09:00 05/11/18 10:00 05/11/18 11:00 Temperature Pulse Rate 66 71 72 Respiratory Rate Blood Pressure Pulse Oximetry 05/11/18 11:07 05/11/18 11:11 05/11/18 12:00 Temperature 98.7 F Pulse Rate 72 74 Respiratory Rate 16 Blood Pressure 91/52 L Pulse Oximetry 92 L 93 L 05/11/18 13:00 05/11/18 14:00 05/11/18 15:00 Temperature Pulse Rate 69 71 65 Respiratory Rate Blood Pressure Pulse Oximetry 05/11/18 15:17 05/11/18 16:00 05/11/18 16:08 Temperature 99.7 F H Pulse Rate 70 79 Respiratory Rate 15 Blood Pressure 98/53 L Pulse Oximetry 93 L 94 L 05/11/18 17:00 05/11/18 18:00 05/11/18 19:00 Temperature Pulse Rate 76 79 79 Respiratory Rate Blood Pressure Pulse Oximetry 05/11/18 20:00 05/11/18 20:34 05/11/18 21:00 Temperature 99.2 F Pulse Rate 83 83 79 Respiratory Rate 17 Blood Pressure 97/55 L Pulse Oximetry 93 L 05/11/18 21:07 05/11/18 22:00 05/11/18 23:00 Temperature Pulse Rate 72 69 Respiratory Rate Blood Pressure Pulse Oximetry 94 L 05/12/18 00:00 05/12/18 00:30 05/12/18 01:00 Temperature 98.7 F Pulse Rate 73 73 68 Respiratory Rate 16 Blood Pressure 104/59 L Pulse Oximetry 96 05/12/18 02:00 05/12/18 03:00 05/12/18 04:00 Temperature 98.6 F Pulse Rate 67 66 69 Respiratory Rate 17 Blood Pressure 117/66 Pulse Oximetry 96 05/12/18 05:00 05/12/18 06:00 Temperature Pulse Rate 73 73 Respiratory Rate Blood Pressure Pulse Oximetry Intake & Output 05/11/18 05/12/18 05/12/18 18:59 06:59 18:59 Intake Total 860 / 860 1360 / 1360 Output Total 1200 / 1200 1800 / 1800 Balance -340 / -340 -440 / -440 Weight 65.5 kg Intake: IV 860 / 860 1000 / 1000 D5W/Normal Saline Inj 1,000 ML 860 / 860 1000 / 1000 @ 100 mls/hr IV.CONT .Q10H [facility] Rx#:[id number] Oral 360 / 360 Output: Urine Amount (Catheter) 1200 / 1200 1800 / 1800 Indwelling Urethral Catheter 1200 / 1200 1800 / 1800 Other: Date of Last Bowel Movement 05/08/18 Physical Exam: resting without distress abdomen soft and NT R UE with minimal ecchymoses and palpable R radial pulse Laboratory Results - last 24 hr 05/11/18 05/11/18 05/11/18 04:51 11:21 17:34 WBC RBC Hgb Hct MCV MCH MCHC RDW Plt Count MPV Sodium Potassium Chloride Carbon Dioxide Anion Gap BUN Creatinine Estimated GFR POC Glucose 125 H 145 H Random Glucose Calcium Magnesium Iron 34 L TIBC 220 L % Saturation 15.5 L Ferritin 212 Vitamin B12 300 Folate Greater than 20.0 H 05/12/18 05/12/18 05/12/18 01:59 03:30 03:30 WBC 5.4 RBC 3.00 L Hgb 10.2 L Hct 29.8 L MCV 99.5 MCH 34.0 MCHC 34.2 RDW 14.3 Plt Count 129 L MPV 8.6 Sodium 142 Potassium 3.3 L Chloride 108 H Carbon Dioxide 25.0 Anion Gap 9 BUN 21 H Creatinine 1.29 H Estimated GFR 40 L POC Glucose 131 H Random Glucose 122 H Calcium 8.0 L Magnesium 1.8 Iron TIBC % Saturation Ferritin Vitamin B12 Folate Microbiology 05/09/18 05:40 Aerobic Blood Culture - Preliminary Blood - Peripheral No growth in 2 days Anaerobic Blood Culture - Preliminary No growth in 2 days 05/09/18 02:30 Aerobic Blood Culture - Preliminary Blood - Peripheral No growth in 2 days Anaerobic Blood Culture - Preliminary No growth in 2 days Assessment and Plan - Assessment (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 ok to discharge to home today from a vascular surgery standpoint 2. RTC 1m with mesenteric duplex - will arrange 3. Needs ASA and plavix (already on for cardiac reasons) 4. safe to have any prophylactic heparin/lovenox while inpatient Please call with any questions: [phone] Alexander Modi MD FACS FSVS [facility]
[2018-05-12] MEDS: Senna/Docusate Sodium 8.6/50 MG Tablet PO SCH (08:20)
[2018-05-12] MEDS: buPROPion 150 MG 12 HR Tablet PO SCH (08:20)
[2018-05-12] MEDS: amLODIPine 10 MG Tablet PO SCH (08:20)
[2018-05-12] MEDS: Allopurinol 100 MG Tablet PO SCH (08:20)
[2018-05-12] MEDS: Atenolol 50 MG Tablet PO SCH (08:20)
[2018-05-12 08:25] VITALS: BP 109/77; RESP 18; TEMP 98.2; O2SAT 94
[2018-05-12] MEDS ORDERED: Potassium Chloride 25 MEQ Effervescent Tablet PO ONE (09:00)
--- NOTE | 2018-05-12 09:22 | P.DS ---
Date of admission: 05/10/18 08:56 Primary care physician: Mihai Agee MD Anticipated date of discharge: 05/12/18 Brief History from admission: Patient is a 77-year-old female with a past medical history of CAD, hypertension, hyperlipidemia, anxiety and gout who presents to the emergency room in [place] with a complaint of abdominal pain. She was evaluated by vascular surgery who found mesenteric ischemia and transferred to [facility] for treatment. Patient is seen lying in bed after transfer. She reports that abdominal pain has improved but still has some generalized periumbilical discomfort. She is unable to give me much history and is somewhat drowsy. No family at bedside. Patient denies any chest pain or shortness of breath. Has not had any nausea vomiting or diarrhea. Patient update on day of discharge: The pt was feeling well and wanted to go home. She tolerated a diet. She says she has vitamin B12 pills at home. She said she will follow up with her PCP. Discussed with nursing. DS: Diagnosis - Discharge Diagnosis (1) Mesenteric artery insufficiency Status: Acute (2) Mesenteric ischemia Status: Acute DS: Summary Hospital Course: Mesenteric ischemia Patient is a 77-year-old female with a past medical history of anxiety, gout, coronary artery disease, hypertension and hyperlipidemia who presents to the emergency room with a complaint of abdominal pain. Surgical history is significant for hernia repair. 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 Vascular surgery was consulted. S/p aortogram w/ selective mesenteric angiogram/ SMA stent on 05/10. She received pain control as needed. Her diet was advanced. She used incentive spirometry. She will continue ASA and Plavix. She will follow up with vascular surgery as an outpt. DARCIE With hematuria and glycosuria. Creatinine 1.5 at admit. Previously normal creatinine on 01/2017. CTA showed multiple bilateral renal cysts similar to prior exam as well as 2 mm calculus in mid left kidney; Right kidney is small and atrophic -new finding from abdominal CT done 03/2017; No hydronephrosis. Evaluated by urology 05/10; no further workup indicated at this time. Patient will schedule outpatient follow-up with urology. Her renal function improved with IVFs. We will continue to hold HCTZ. She may resume lisinopril if blood pressure becomes elevated again. She will follow up with her PCP. Hypertension Has been hypotensive at times. She will resume lisinopril if her blood pressure starts to trend up again. We will hold HCTZ. She will follow up with her PCP. Anemia B12 level low normal. The pt will resume her home B12 regimen. Hypokalemia She received PO KCl. HCTZ was discontinued. Her diet was advanced. - Time Spent with Patient Total time spent providing and/or coordinating discharge services: Greater than 30 minutes - Quality: VTE Deep Vein Thrombosis/Pulmonary Embolism Present on Admission: No Exam Vital signs: Vital Signs 05/11/18 10:00 05/11/18 11:00 05/11/18 11:07 Temperature 98.7 F Pulse Rate 71 72 72 Respiratory Rate 16 Blood Pressure 91/52 L Pulse Oximetry 92 L 05/11/18 11:11 05/11/18 12:00 05/11/18 13:00 Temperature Pulse Rate 74 69 Respiratory Rate Blood Pressure Pulse Oximetry 93 L 05/11/18 14:00 05/11/18 15:00 05/11/18 15:17 Temperature 99.7 F H Pulse Rate 71 65 70 Respiratory Rate 15 Blood Pressure 98/53 L Pulse Oximetry 93 L 05/11/18 16:00 05/11/18 16:08 05/11/18 17:00 Temperature Pulse Rate 79 76 Respiratory Rate Blood Pressure Pulse Oximetry 94 L 05/11/18 18:00 05/11/18 19:00 05/11/18 20:00 Temperature Pulse Rate 79 79 83 Respiratory Rate Blood Pressure Pulse Oximetry 05/11/18 20:34 05/11/18 21:00 05/11/18 21:07 Temperature 99.2 F Pulse Rate 83 79 Respiratory Rate 17 Blood Pressure 97/55 L Pulse Oximetry 93 L 94 L 05/11/18 22:00 05/11/18 23:00 05/12/18 00:00 Temperature Pulse Rate 72 69 73 Respiratory Rate Blood Pressure Pulse Oximetry 05/12/18 00:30 05/12/18 01:00 05/12/18 02:00 Temperature 98.7 F Pulse Rate 73 68 67 Respiratory Rate 16 Blood Pressure 104/59 L Pulse Oximetry 96 05/12/18 03:00 05/12/18 04:00 05/12/18 05:00 Temperature 98.6 F Pulse Rate 66 69 73 Respiratory Rate 17 Blood Pressure 117/66 Pulse Oximetry 96 05/12/18 06:00 05/12/18 08:00 Temperature 98.2 F Pulse Rate 73 74 Respiratory Rate 18 Blood Pressure 109/77 Pulse Oximetry 94 L Intake & Output 05/11/18 05/12/18 05/12/18 18:59 06:59 18:59 Intake Total 860 / 860 1360 / 1360 1000 / 1000 Output Total 1200 / 1200 1800 / 1800 Balance -340 / -340 -440 / -440 1000 / 1000 Weight 65.5 kg Intake: IV 860 / 860 1000 / 1000 1000 / 1000 D5W/Normal Saline Inj 1,000 ML 860 / 860 1000 / 1000 @ 100 mls/hr IV.CONT .Q10H [facility] Rx#:[id number] Oral 360 / 360 Output: Urine Amount (Catheter) 1200 / 1200 1800 / 1800 Indwelling Urethral Catheter 1200 / 1200 1800 / 1800 Other: Date of Last Bowel Movement 05/08/18 05/08/18 Narrative: GENERAL: Well-nourished, well-developed adult female in no obvious distress. SKIN: Warm and dry. HEAD: Atraumatic. Normocephalic. CARDIOVASCULAR: Regular rate and rhythm. RESPIRATORY: No accessory muscle use. Clear to auscultation. Breath sounds equal bilaterally. GASTROINTESTINAL: Abdomen soft, nontender, no guarding, non-distended. Positive bowel sounds. MUSCULOSKELETAL: Extremities without clubbing, cyanosis, or edema. No obvious deformities. NEUROLOGICAL: Awake and alert. No obvious cranial nerve deficits. Motor grossly within normal limits. Normal speech. Results Procedures completed during hospitalization: See hospital course Labs on day of discharge: Labs from last 24 hours 05/12/18 05/12/18 05/12/18 03:30 03:30 01:59 WBC 5.4 RBC 3.00 L Hgb 10.2 L Hct 29.8 L MCV 99.5 MCH 34.0 MCHC 34.2 RDW 14.3 Plt Count 129 L MPV 8.6 Sodium 142 Potassium 3.3 L Chloride 108 H Carbon Dioxide 25.0 Anion Gap 9 BUN 21 H Creatinine 1.29 H Estimated GFR 40 L POC Glucose 131 H Random Glucose 122 H Calcium 8.0 L Magnesium 1.8 Iron TIBC % Saturation Ferritin Vitamin B12 Folate 05/11/18 05/11/18 05/11/18 17:34 11:21 04:51 WBC RBC Hgb Hct MCV MCH MCHC RDW Plt Count MPV Sodium Potassium Chloride Carbon Dioxide Anion Gap BUN Creatinine Estimated GFR POC Glucose 145 H 125 H Random Glucose Calcium Magnesium Iron 34 L TIBC 220 L % Saturation 15.5 L Ferritin 212 Vitamin B12 300 Folate Greater than 20.0 H Preliminary micro results at discharge 05/09/18 05:40 Aerobic Blood Culture - Preliminary Blood - Peripheral No growth in 2 days Anaerobic Blood Culture - Preliminary No growth in 2 days 05/09/18 02:30 Aerobic Blood Culture - Preliminary Blood - Peripheral No growth in 2 days Anaerobic Blood Culture - Preliminary No growth in 2 days - Impressions ITS Impressions Chest X-Ray 05/09/18 02:16 CONCLUSION: 1. Subtle patchy airspace disease in the right lower lung zone which may reflect atelectasis. Cannot exclude aspiration or pneumonia in the appropriate clinical setting. Thoracic Aorta CT 05/09/18 02:54 CONCLUSION: 1. Redemonstration of extensive diffuse vascular disease. There is severe stenosis of the proximal left subclavian artery and severe distal aortic stenosis at the aortic bifurcation. Persistent severe stenosis of the left common iliac origin and moderate to severe stenosis of the right common iliac origin. 2. 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 There is sufficient mesenteric artery involvement to implicate mesenteric ischemia in the appropriate clinical setting. 3. Focal loop of adherent small bowel in the anterior midabdomen with mild circumferential wall thickening and surrounding inflammatory change. There is relative prominence of more proximal small bowel loops although they do not appear definitively obstructed. Differential considerations include focal enteritis which may be related to adhesions or ischemic or infectious in etiology although somewhat chronic as findings were significantly less prominent but present on previous CT exam. Correlation with physical exam and patient's point of abdominal tenderness is recommended. 4. Additional ancillary findings, as above. Discharge Plan - Discharge Disposition Patient Disposition: 01 Discharge Home - Discharge Condition Condition: Stable - Discharge Order Discharge Orders: Discharge Order (Routine); Ordered 05/12/18 Ordered By: Franki Wolf Vascular Surgery Clear for Discharge (Routine); Ordered 05/12/18 Ordered By: Alexander Modi - Discharge Details Anticipated Discharge Date: 05/12/18 Discharge Comment: Take your home vitamin B12 as directed. We are holding your HCTZ because it is making your potassium low. Please follow up with your PCP. - Physicians Team Primary Care Provider: Mihai Agee Attending Provider: Franki Wolf Other Providers: Alexander Modi MD ; Ravinder Huston MD ; Emilie Phan
[2018-05-12 10:08] VITALS: PULSE 76
== END 2018-05-12 10:41 | disposition home or self-care (01) | DRG 357 ==
LOC: PHED 01:41 → PHEDH 01:41 → NEPHCDU 10:00 → HCIS 05-10 11:36 → HCPC 05-10 16:08
PROVIDERS: ADMIT Hospitalist; ATTEND Hospitalist
DX: D64.9 Anemia, unspecified; E87.6 Hypokalemia; E78.5 Hyperlipidemia, unspecified; I95.9 Hypotension, unspecified; E78.00 Pure hypercholesterolemia, unspecified; I77.4 Celiac artery compression syndrome; N17.9 Acute kidney failure, unspecified; I70.8 Atherosclerosis of other arteries; K55.1 Chronic vascular disorders of intestine; R81 Glycosuria; I10 Essential (primary) hypertension; K55.069 Acute infarction of intestine, part and extent unspecified; M10.9 Gout, unspecified; N20.0 Calculus of kidney; I70.0 Atherosclerosis of aorta; F41.9 Anxiety disorder, unspecified; Z91.040 Latex allergy status; N28.1 Cyst of kidney, acquired; F17.210 Nicotine dependence, cigarettes, uncomplicated; N26.1 Atrophy of kidney (terminal); I25.10 Atherosclerotic heart disease of native coronary artery without angina pectoris; K80.20 Calculus of gallbladder without cholecystitis without obstruction
CPT/HCPCS: 51702; 71010; 71045; 71275; 74175; 75625; 80048; 80053; 81001; 82550; 82607; 82728; 82746; 82948; 82962; 83036; 83540; 83550; 83605; 83690; 83735; 84484; 85025; 85027; 85610; 85730; 86850; 86900; 86901; 87040; 90761; 90774; 90775; 90776; 90784; 93005; 94150; 94664; 96361; 96374; 96375; 96376; 99285; A4646; C1725; C1769; C1876; C8952; G0378; J0690; J1644; J2270; J2405; J2720; J3010; J3370; J7030; J7040; J7042; J7120; Q9949; Q9967